=== PATIENT | female | born 1965 | race Caucasian/White ===

== ENCOUNTER 2020-08-15 07:54 | Outpatient (REF) | payer OTHER, SELFPAY ==
[2020-08-15 11:24] LABS: Hematocrit 41.1 % (37-47); Hemoglobin 13.5 g/dl (12.0-16.0); Mean Corpuscular HGB Conc 32.8 g/dl (31.0-35.0); Mean Corpuscular Hemoglobin 29.7 pg (27.0-33.0); Mean Corpuscular Volume 90.5 fL (80-98); Mean Platelet Volume 9.8 fL (9.4-12.3); Platelet Count 266 X10*3/uL (160-400); Red Blood Count 4.54 X10*6/uL (4.20-5.50); Red Cell Distribution Width 13.2 % (11.0-16.0); White Blood Count 7.1 X10*3/uL (4.8-10.8)
[2020-08-15 11:42] LABS: Alanine Aminotransferase 30 U/L (0-31); Albumin Level 4.5 g/dL (3.5-5.0); Alkaline Phosphatase 101 U/L (39-117); Anion Gap 15 (12-20); Aspartate Amino Transferase 28 U/L (5-31); Bilirubin Total 0.4 mg/dL (0.0-1.0); Blood Urea Nitrogen 15 mg/dL (9-16); Calcium 9.5 mg/dL (8.4-10.2); Carbon Dioxide 27 mmol/L (22-29); Chloride 102 mmol/L (96-108); Cholesterol 276 mg/dL; Estimated Glomerular Filt Rate > 60; Glucose Fasting 109 mg/dL (60-99); HDL Cholesterol 56 mg/dL; Iron 89 mcg/dL (30-160); LDL Cholesterol Calculated 168 mg/dl; Percent Iron Saturation 25 % (15-50); Potassium 4.5 mmol/l (3.3-5.1); Sodium 139 mmol/L (135-145); Total Iron Binding Capacity 357 mcg/dL (228-428); Total Protein 7.3 g/dL (6.5-8.0); Triglycerides 264 mg/dL; Unsaturated Iron Binding 268 ug/dL
[2020-08-15 11:55] LABS: Thyroid Stimulating Hormone 4.44 mIU/mL (0.32-4.0)
[2020-08-15 12:12] LABS: Creatinine Urine 144.53 mg/dL; Microalbum/Creatinine Ratio Ur 93.4 ug/mg cr
[2020-08-15 12:16] LABS: Estimated Average Glucose 128 mg/dL; Hemoglobin A1C 149.7417 umol/L; Hemoglobin A1c % 6.1 %
[2020-08-15 12:22] LABS: Glucose Urine UA NEG (NEG); Leukocyte Esterase Urine 1+ (NEG); Nitrite Urine NEG (NEG); PH 5.5 (5.0-8.0); Specific Gravity - Urine 1.025 (1.005-1.025); Urine Blood 2+ (NEG); Urine Ketones NEG (NEG); Urine Protein NEG (NEG-TRACE)
[2020-08-15 12:39] LABS: Appearance Urine HAZY; Color Urine YELLOW
[2020-08-15 13:37] LABS: RBC Urine 0-2 /HPF (0)
== END 2020-08-15 07:55 | disposition home or self-care (01) ==
LOC: HO.HMGCLDS 07:54
PROVIDERS: PCP Internal Medicine; Visit Provider Internal Medicine
DX: Z00.00 Encounter for general adult medical examination without abnormal findings (principal); I49.9 Cardiac arrhythmia, unspecified; I10 Essential (primary) hypertension; E55.9 Vitamin D deficiency, unspecified
CPT/HCPCS: 36415; 80053; 80061; 81001; 81003; 82043; 83036; 83540; 84443; 85027

== ENCOUNTER 2020-08-29 17:27 | Outpatient (REF) | payer OTHER, SELFPAY ==
--- NOTE | 2020-08-29 | MM_ITS ---
EXAMINATION: MM SCREENING DIGITAL BREAST TOMOSYNTHESIS, BILATERAL CLINICAL INFORMATION: Screening. Asymptomatic. The lifetime risk of breast cancer based on the Tyrer-Cuzick Model is 8.4%. COMPARISON: Mammography: May 31, 2019 and studies dating back to July 28, 2014 TECHNIQUE: Digital breast tomosynthesis is performed in both the craniocaudal and mediolateral oblique views along with computer-aided detection (CAD). Synthesized 2D images are generated from the tomosynthesis. FINDINGS: The breasts are heterogeneously dense, which may obscure small masses (ACR BI-RADS breast composition Category c). There are no significant masses, abnormal calcifications, or other abnormalities. MM/MM tomosynthesis screening BI IMPRESSION: There are no significant changes from prior study. ASSESSMENT: BI-RADS 1: Negative RECOMMENDATION: Routine annual mammography screening. This patient's information was entered into a reminder system with a target due date for their next mammogram.
== END 2020-08-29 17:28 | disposition home or self-care (01) ==
LOC: HO.MAMMO 17:27
PROVIDERS: PCP Internal Medicine; Visit Provider Internal Medicine
DX: Z12.31 Encounter for screening mammogram for malignant neoplasm of breast (principal)
CPT/HCPCS: 77063; 77067

== ENCOUNTER → 2020-10-08 10:52 | Outpatient (BNVA) | payer OTHER, SELFPAY | PROVIDERS: PCP Internal Medicine; Visit Provider Nurse Practitioner Family | DX: I49.1 Atrial premature depolarization (principal); R00.2 Palpitations; I10 Essential (primary) hypertension | CPT/HCPCS: 93005; 99212 ==

== ENCOUNTER → 2020-11-25 13:25 | Outpatient (REF) | payer OTHER, SELFPAY ==
--- NOTE | 2020-11-25 15:04 | ECG_ITS ---
Hook-up date: 2020-11-25 14:48:00 Duration: 44:41:00 Test Indications: ATRIAL PREMATURE DEPOLARIZATION. Medications: 129472 QRS complexes * Ventricular ectopics which represent % of total QRS comp. 7 Supraventricular ectopics which represent <1 % of total QRS comp. * Paced QRS complexs which represent % of total QRS comp. VENTRICULAR ECTOPY * Isolated * Bigeminal Cycles * Couplets * Runs * Beats in Runs * Beats LONGEST at * BPM at :: -- * Beats FASTEST at * BPM at :: -- SUPRAVENTRICULAR ECTOPY 7 Isolated 0 Couplets 0 Runs 0 Beats in Runs * Beats LONGEST at * BPM at :: -- * Beats FASTEST at * BPM at :: -- HEART RATES 51 MIN at 06:04:13 2020-11-26 76 AVG 105 MAX at 16:05:33 2020-11-26 LONGEST RR 1.8560 secs at 00:34:07 2020-11-26 S-T LEVELS Channel 1 - 128 mm at 14:48:00 2020-11-25 - 128 mm at 14:48:00 2020-11-25 Channel 2 - 128 mm at 14:48:00 2020-11-25 - 128 mm at 14:48:00 2020-11-25 Channel 3 - 128 mm at 03:40:71 -- - 128 mm at 03:40:71 Basic rhythm Normal sinus rhythm No long pause or profound bradycardia Rare Premature atrial complexes pat Referred By: Barbara Caldera Overread By: ALBAN MACKAY MD
== END ==
LOC: HO.CARD 13:25
PROVIDERS: PCP Internal Medicine; Visit Provider Nurse Practitioner Family
DX: I49.1 Atrial premature depolarization (principal)
CPT/HCPCS: 93226

== ENCOUNTER → 2020-12-19 13:47 | Outpatient (REF) | payer OTHER, SELFPAY ==
--- NOTE | 2020-12-19 14:00 | CA_ITS ---
Transthoracic Echocardiogram Patient (Last, First, Middle): Angelica Saba, Gender: Female Date of : 1965 Age: 55 Procedure Date: 12/19/2020 Procedure Type: Transthoracic Echocardiogram Location: OP Height: 157.48 cm Weight: 65.77 kg BSA: 1.67 m2 Heart Rate: bpm BP: 126 / 89 mmHg Tire Retreader: JOSE Woodward MD: Jc Dangeol MD Chair Car Attendant: Carlos Bautista MD Symptoms: I49.1 PAC I10 HTN Study Quality: Good ECG Rhythm: Sinus Conclusions: - 1. Normal LV systolic function with grade 1 diastolic dysfunction 2. Normal cardiac valvular Doppler 3. Normal RV systolic pressure 4. No pericardial effusion Findings Left Ventricle Normal left ventricular size, thickness, and systolic function. The visually estimated ejection fraction is between 60-65%. Spectral Doppler is indicative of an impaired relaxation filling pattern. E/E prime ratio is <8, consistent with normal filling pressures. Evidence suggests grade I (mild) diastolic dysfunction. Right Ventricle Normal right ventricular cavity size and systolic function. Atria The left atrium is likely dilated. There is lipomatous hypertrophy of the interatrial septum. Interatrial shunt cannot be excluded. The right atrium is normal in size. Aortic Valve The aortic valve structure and function is likely normal. There is no aortic valve stenosis. There is no aortic valve regurgitation. Mitral Valve There is mild anterior and posterior mitral leaflet thickening. There is trace mitral valve regurgitation. There is no mitral valve stenosis. Pulmonic Valve The pulmonic valve was not well visualized. Tricuspid Valve Likely normal tricuspid valve structure and function. There is trace tricuspid valve regurgitation. The right ventricular systolic pressure is normal. The right ventricular systolic pressure is 26 mmHg. Normal right atrial pressure. There is no evidence of pulmonary hypertension. Great Vessels All visible segments of the aorta are normal in size. The pulmonary artery was not well visualized. Venous The inferior vena cava was not well visualized. Pericardium/Pleural There is no evidence of pericardial effusion. Prior Study Comparison No significant change compared to prior study dated: 08/31/2019. Measurements 2D Linear Measurements IVSd: 0.96 0.6-0.9/0.6-1.0 cm LVIDd: 3.83 3.9-5.3/4.2-5.9 cm LVIDd Index: 2.29 2.4-3.2/2.2-3.1 cm/m2 LVIDs: 2.44 2.0-3.6 cm LVPWd: 0.99 0.7-1.1 cm Ao Root: 3.20 2.1-3.5 cm LA Diam: 3.20 2.7-3.8/3.0-4.0 cm LAIDs Index: 1.92 1.5-2.3 cm/m2 LV Mass: 142.19 67-162/88-224 g LV Mass Index: 85.14 43-95/49-115 g/m2 LVOT Diam: 2.00 3.0+(-)1.3 cm 2D Systolic Function EF 4C: 65.70 >55% EF 2C: 65.30 >55% EF BiP: 64.00 >55% Mitral Valve MV Pk E: 0.75 MV PK A: 1.00 MV Decel Time: 253.00 E/A: 0.80 E'Lateral: 7.18 E'Medial: 5.44 E/E' Med: 13.80 E/E' Lat: 10.50 PHT: 74.00 MVA PHT: 2.97 Decel Kingman: 2.98 Aortic Valve AoV Pk Adama: 1.90 AoV Mn Adama: 1.18 AoV VTI: 0.39 AoV Pk Grad: 14.00 Aov Mn Grad: 7.00 ADWOA Cont.VTI: 1.94 LVOT LVOT Pk Adama: 1.10 LVOT Mn Adama: 0.71 LVOT VTI: 0.24 LVOT Pk Grad: 5.00 LVOT Mn Grad: 2.00 LVOT Diam: 2.00 LVOT Area: 3.14 Diastolic Function MV Pk E: 0.75 MV Pk A: 1.00 E/A: 0.80 E'Medial: 5.44 E/E' Med: 13.80 E' Laterial: 7.18 E/E' Lat: 10.50 Tricuspid Valve TR Pk Adama: 2.41 TR Pk Grad: 23.00 RA Press: 3.00 RVSP: 26.00 Great Vessels Aorta Ao Root-2D: 3.20 2.0-3.7 cm Ao Asc: 3.30 2.1-3.4 cm Ao Arch: 2.60 Updated in Other Vendor System with Status of Final Carlos Bautista MD electronically signed on 12/20/2020 5:24:59 PM with status of Final
== END ==
LOC: HO.CARD 13:47
PROVIDERS: Visit Provider Internal Medicine
DX: I49.1 Atrial premature depolarization (principal); I10 Essential (primary) hypertension
CPT/HCPCS: 93306

== ENCOUNTER → 2020-12-24 09:51 | Outpatient (BNVA) | payer OTHER, SELFPAY | PROVIDERS: PCP Internal Medicine; Visit Provider Nurse Practitioner Family | DX: I49.1 Atrial premature depolarization (principal); I10 Essential (primary) hypertension; R00.2 Palpitations | CPT/HCPCS: 99212 ==

== ENCOUNTER → 2021-01-20 11:23 | Outpatient (BNVA) | payer OTHER, SELFPAY | PROVIDERS: PCP Internal Medicine; Visit Provider Advanced Practice Midwife ==

== ENCOUNTER 2021-03-18 11:23 | Outpatient (REF) | payer OTHER, SELFPAY ==
[2021-03-18 14:02] LABS: Glucose Urine UA NEG (NEG); Leukocyte Esterase Urine NEG (NEG); Nitrite Urine NEG (NEG); Specific Gravity - Urine <= 1.005 (1.005-1.025); Urine Blood TRACE (NEG); Urine Ketones NEG (NEG); Urine Protein NEG (NEG-TRACE)
[2021-03-18 14:03] LABS: Appearance Urine CLEAR; Color Urine STRAW
[2021-03-18 14:18] LABS: RBC Urine 0-2 /HPF (0); WBC Urine 0 /HPF (0-4)
[2021-03-18 14:27] LABS: Estimated Average Glucose 131 mg/dL; Hemoglobin A1c % 6.2 %
[2021-03-18 14:31] LABS: Alanine Aminotransferase 34 U/L (0-31); Albumin Level 4.8 g/dL (3.5-5.0); Alkaline Phosphatase 104 U/L (39-117); Anion Gap 17 (12-20); Aspartate Amino Transferase 29 U/L (5-31); Bilirubin Total 0.4 mg/dL (0.0-1.0); Blood Urea Nitrogen 13 mg/dL (9-16); Calcium 9.5 mg/dL (8.4-10.2); Carbon Dioxide 24 mmol/L (22-29); Chloride 100 mmol/L (96-108); Cholesterol 274 mg/dL; Estimated Glomerular Filt Rate > 60; Glucose Fasting 99 mg/dL (60-99); HDL Cholesterol 57 mg/dL; LDL Cholesterol Calculated 163 mg/dl; Potassium 4.1 mmol/L (3.3-5.1); Sodium 137 mmol/L (135-145); Total Protein 7.6 g/dL (6.5-8.0); Triglycerides 272 mg/dL
[2021-03-18 14:54] LABS: Thyroid Stimulating Hormone 2.79 uIU/mL (0.32-4.0)
== END 2021-03-18 11:24 | disposition home or self-care (01) ==
LOC: HO.HMGCLDS 11:23
PROVIDERS: PCP Internal Medicine; Visit Provider Internal Medicine
DX: E03.9 Hypothyroidism, unspecified (principal); E78.5 Hyperlipidemia, unspecified; R73.9 Hyperglycemia, unspecified; I10 Essential (primary) hypertension
CPT/HCPCS: 36415; 80053; 80061; 81001; 83036; 84443

== ENCOUNTER → 2021-04-04 08:04 | Outpatient (BNVA) | payer OTHER, SELFPAY | PROVIDERS: PCP Internal Medicine; Visit Provider Advanced Practice Midwife ==

== ENCOUNTER 2021-05-27 15:23 | Outpatient (REF) | payer OTHER, SELFPAY ==
--- NOTE | ~2021-05-27 | US_ITS ---
EXAMINATION: PELVIC ULTRASOUND CLINICAL INFORMATION: Amenorrhea COMPARISON: Previous pelvic ultrasound July 2015 TECHNIQUE: Transabdominal and transvaginal pelvic ultrasound was performed. Transvaginal exam was performed for better visualization of the uterus and ovaries. FINDINGS: The uterus is anteverted and measures 8.8 x 3.2 x 5.1 cm in dimension. No focal uterine lesion is seen. There is an IUD in the uterus and satisfactory position. The endometrium does not appear thickened. The ovaries are normal-appearing. The right ovary measures 2.8 x 1.1 x 1.9 cm. The left ovary measures 2.8 x 2.8 x 2.4 cm. There is a small 1.9 x 1.5 x 1.6 cm simple left ovarian cyst. There is no fluid in the pelvis. US/US pelvic and transvaginal IMPRESSION: IUD in the uterus in satisfactory position. Otherwise unremarkable exam.
== END 2021-05-27 15:24 | disposition home or self-care (01) ==
LOC: HO.US 15:23
PROVIDERS: Visit Provider Advanced Practice Midwife
DX: T83.32XA Displacement of intrauterine contraceptive device, initial encounter (principal); N91.2 Amenorrhea, unspecified
CPT/HCPCS: 76830; 76856

== ENCOUNTER → 2021-05-28 09:15 | Outpatient (BNVA) | payer OTHER, SELFPAY | PROVIDERS: PCP Internal Medicine; Referring Provider Internal Medicine; Visit Provider Internal Medicine | DX: I49.1 Atrial premature depolarization (principal); I10 Essential (primary) hypertension; G47.33 Obstructive sleep apnea (adult) (pediatric) | CPT/HCPCS: 99212 ==

== ENCOUNTER 2021-06-02 08:25 | Outpatient (REF) | payer OTHER, SELFPAY ==
[2021-06-03 19:36] LABS: Follicle Stimulating Hormone 52.6 mIU/mL
== END 2021-06-02 08:26 | disposition home or self-care (01) ==
LOC: HO.LAB 08:25
PROVIDERS: PCP Internal Medicine; Visit Provider Advanced Practice Midwife
DX: N91.2 Amenorrhea, unspecified (principal); T83.32XA Displacement of intrauterine contraceptive device, initial encounter
CPT/HCPCS: 36415; 83001

== ENCOUNTER → 2021-06-03 10:53 | Outpatient (BNVA) | payer OTHER, SELFPAY | PROVIDERS: PCP Internal Medicine; Visit Provider Advanced Practice Midwife ==

== ENCOUNTER → 2021-06-06 15:04 | Outpatient (BNVA) | payer OTHER, SELFPAY | PROVIDERS: PCP Internal Medicine; Visit Provider Advanced Practice Midwife ==

== ENCOUNTER → 2021-07-16 08:07 | Outpatient (BNVA) | payer OTHER, SELFPAY | PROVIDERS: PCP Internal Medicine; Visit Provider Advanced Practice Midwife | DX: Z30.432 Encounter for removal of intrauterine contraceptive device (principal); G47.9 Sleep disorder, unspecified; N95.1 Menopausal and female climacteric states | CPT/HCPCS: 58301 ==

== ENCOUNTER 2021-08-09 09:37 | Outpatient (REF) | payer OTHER, SELFPAY ==
[2021-08-09 10:19] LABS: Appearance Urine CLEAR; Color Urine YELLOW; Glucose Urine UA NEG (NEG); Leukocyte Esterase Urine 3+ (NEG); Nitrite Urine NEG (NEG); Specific Gravity - Urine 1.025 (1.005-1.025); Urine Blood 2+ (NEG); Urine Ketones NEG (NEG); Urine Protein TRACE MG/DL (NEG-TRACE)
[2021-08-09 10:28] LABS: Renal Epithelial Cells Urine 1+ /LPF; Squamous Epithelial Cell Urine 1+ /LPF
[2021-08-09 10:31] LABS: Estimated Average Glucose 140 mg/dL; Hemoglobin A1c % 6.5 %
[2021-08-09 10:38] LABS: Alanine Aminotransferase 36 U/L (0-31); Albumin Level 4.5 g/dL (3.5-5.0); Alkaline Phosphatase 113 U/L (39-117); Anion Gap 14 (12-20); Aspartate Amino Transferase 27 U/L (5-31); Bilirubin Total 0.4 mg/dL (0.0-1.0); Blood Urea Nitrogen 14 mg/dL (9-16); Carbon Dioxide 25 mmol/L (22-29); Chloride 103 mmol/L (96-108); Cholesterol 286 mg/dL; Estimated Glomerular Filt Rate > 60; Glucose Fasting 123 mg/dL (60-99); HDL Cholesterol 48 mg/dL; LDL Cholesterol Calculated 177 mg/dl; Potassium 4.7 mmol/L (3.3-5.1); Sodium 137 mmol/L (135-145); Total Protein 7.3 g/dL (6.5-8.0); Triglycerides 305 mg/dL
[2021-08-09 10:57] LABS: Creatinine Urine 97.71 mg/dL; Microalbum/Creatinine Ratio Ur 110.5 ug/mg cr
[2021-08-09 10:58] LABS: TSH reflex Free T4 6.23 uIU/mL (0.32-4.0)
[2021-08-09 12:05] LABS: Free T4 (Free Thyroxine) 0.76 ng/dL (0.71-1.85)
== END 2021-08-09 09:38 | disposition home or self-care (01) ==
LOC: HO.LAB 09:37
PROVIDERS: Absent Provider Internal Medicine; PCP Nurse Practitioner Family; Visit Provider Nurse Practitioner Family
DX: I10 Essential (primary) hypertension (principal); E03.9 Hypothyroidism, unspecified; R73.9 Hyperglycemia, unspecified; E78.5 Hyperlipidemia, unspecified
CPT/HCPCS: 36415; 80053; 80061; 81001; 82043; 83036; 84439; 84443

== ENCOUNTER → 2021-08-26 08:05 | Outpatient (BNVA) | payer OTHER, SELFPAY | PROVIDERS: PCP Nurse Practitioner Family; Visit Provider Obstetrics & Gynecology | DX: T83.32XA Displacement of intrauterine contraceptive device, initial encounter (principal) | CPT/HCPCS: 99212 ==

== ENCOUNTER 2021-09-06 09:39 | Outpatient (REF) | payer OTHER, SELFPAY ==
--- NOTE | ~2021-09-06 | MM_ITS ---
EXAMINATION: MM SCREENING DIGITAL BREAST TOMOSYNTHESIS, BILATERAL CLINICAL INFORMATION: Screening. Asymptomatic. The lifetime risk of breast cancer based on the Tyrer-Cuzick Model is 10%. COMPARISON: Mammography: 08/29/2020, 05/31/2019, 04/18/2018 TECHNIQUE: Digital breast tomosynthesis is performed in both the craniocaudal and mediolateral oblique views along with computer-aided detection (CAD). Synthesized 2D images are generated from the tomosynthesis. FINDINGS: There are scattered areas of fibroglandular density (ACR BI-RADS breast composition Category b). There are no significant masses, abnormal calcifications, or other abnormalities. Parenchymal pattern is similar to prior exams. No developing density. The axilla and skin contours are unremarkable. No significant changes. MM/MM tomosynthesis screening BI IMPRESSION: No mammographic evidence of malignancy. ASSESSMENT: BI-RADS 1: Negative RECOMMENDATION: Routine annual mammography screening. This patient's information was entered into a reminder system with a target due date for their next mammogram.
== END 2021-09-06 09:40 | disposition home or self-care (01) ==
LOC: HO.MAMMO 09:39
PROVIDERS: PCP Nurse Practitioner Family; Visit Provider Nurse Practitioner Family
DX: Z12.31 Encounter for screening mammogram for malignant neoplasm of breast (principal)
CPT/HCPCS: 77063; 77067

== ENCOUNTER → 2021-11-26 07:30 | Outpatient (REF) | payer OTHER, SELFPAY ==
--- NOTE | 2021-11-26 07:35 | CA_ITS ---
Transthoracic Echocardiogram Patient (Last, First, Middle): Angelica Saba, Gender: Female Date of : 1965 Age: 56 Procedure Date: 11/26/2021 Procedure Type: Transthoracic Echocardiogram Location: OP Height: 154.94 cm Weight: 64.41 kg BSA: 1.63 m2 Heart Rate: bpm BP: 116 / 60 mmHg Mine Wedge Sawyer: Referring MD: Ray Tolentino [facility] Symptoms: R01.1 - Cardiac murmur, unspecified Study Quality: Fair ECG Rhythm: Sinus Conclusions: - The left ventricular systolic function is normal. The calculated ejection fraction is 64% by biplane method. - No obvious valvular pathology seen on this study. Findings Left Ventricle Normal left ventricular cavity size. There is mildly increased left ventricular wall thickness. The left ventricular systolic function is normal. The calculated ejection fraction is 64% by biplane method. There is no evidence of regional wall motion abnormalities. E/E prime ratio is between 8 and 15 consistent with indeterminate filling pressures. Evidence suggests grade I (mild) diastolic dysfunction. Right Ventricle Normal right ventricular cavity size and systolic function. Atria Both atria are normal in size. Aortic Valve There is a normal trileaflet aortic valve. There is no aortic valve stenosis. There is no aortic valve regurgitation. Mitral Valve The mitral valve appears normal. There is no mitral valve regurgitation. There is no mitral valve stenosis. Pulmonic Valve The pulmonic valve was not well visualized. Tricuspid Valve Normal tricuspid valve structure. There is trace tricuspid valve regurgitation. The pulmonary artery systolic pressure is normal. Great Vessels The aortic annulus, sinuses of valsalva, and asc aorta are normal in size. Venous The inferior vena cava was not well visualized. The inferior vena cava is normal in size. Pericardium/Pleural There is no evidence of pericardial effusion. Prior Study Comparison No significant change compared to prior study dated: 12/19/2020. Recommendations, Care & Conclusions No obvious valvular pathology seen on this study. Measurements 2D Linear Measurements IVSd: 1.20 0.6-0.9/0.6-1.0 cm LVIDd: 4.03 3.9-5.3/4.2-5.9 cm LVIDd Index: 2.47 2.4-3.2/2.2-3.1 cm/m2 LVIDs: 2.66 2.0-3.6 cm LVPWd: 1.23 0.7-1.1 cm Ao Root: 3.10 2.1-3.5 cm LA Diam: 3.50 2.7-3.8/3.0-4.0 cm LAIDs Index: 2.15 1.5-2.3 cm/m2 LV Mass: 212.30 67-162/88-224 g LV Mass Index: 130.25 43-95/49-115 g/m2 LVOT Diam: 2.00 3.0+(-)1.3 cm 2D Systolic Function EF 4C: 70.20 >55% EF 2C: 54.10 >55% EF BiP: 64.30 >55% Mitral Valve MV Pk E: 0.77 MV PK A: 0.83 MV Decel Time: 203.00 E/A: 0.90 E'Lateral: 7.18 E'Medial: 4.57 E/E' Med: 16.80 E/E' Lat: 10.70 PHT: 59.00 MVA PHT: 3.73 Decel Wilbarger: 3.78 Aortic Valve AoV Pk Adama: 1.71 AoV Mn Adama: 1.17 AoV VTI: 0.42 AoV Pk Grad: 12.00 Aov Mn Grad: 6.00 ADWOA Cont.VTI: 2.07 LVOT LVOT Pk Adama: 1.20 LVOT Mn Adama: 0.79 LVOT VTI: 0.28 LVOT Pk Grad: 6.00 LVOT Mn Grad: 3.00 LVOT Diam: 2.00 LVOT Area: 3.14 Diastolic Function MV Pk E: 0.77 MV Pk A: 0.83 E/A: 0.90 E'Medial: 4.57 E/E' Med: 16.80 E' Laterial: 7.18 E/E' Lat: 10.70 Right Ventricle TAPSE (mm): 23.00 TVS' Adama: 13.00 Tricuspid Valve TR Pk Adama: 1.59 TR Pk Grad: 10.00 Great Vessels Aorta Ao Root-2D: 3.10 2.0-3.7 cm Ao Asc: 3.20 2.1-3.4 cm Pulmonary Valve PV Pk Adama: 1.06 Peak PV Grad: 4.00 Updated in Other Vendor System with Status of Final Jc Dangelo MD electronically signed on 11/28/2021 11:45:16 AM with status of Final
== END ==
LOC: HO.CARD 07:30
PROVIDERS: PCP Nurse Practitioner Family; Visit Provider Nurse Practitioner Family
DX: R01.0 Benign and innocent cardiac murmurs (principal)
CPT/HCPCS: 93306

== ENCOUNTER → 2022-01-06 13:47 | Outpatient (BNVA) | payer OTHER, SELFPAY | PROVIDERS: PCP Nurse Practitioner Family; Referring Provider Nurse Practitioner Family; Visit Provider Internal Medicine | DX: I49.1 Atrial premature depolarization (principal); I10 Essential (primary) hypertension; G47.33 Obstructive sleep apnea (adult) (pediatric); E78.2 Mixed hyperlipidemia | CPT/HCPCS: 93005; 99212 ==

== ENCOUNTER 2022-01-17 10:36 | Outpatient (REF) | payer OTHER, SELFPAY ==
[2022-01-17 11:44] LABS: Appearance Urine CLEAR; Color Urine YELLOW; Glucose Urine UA NEG (NEG); Leukocyte Esterase Urine NEG (NEG); Nitrite Urine NEG (NEG); Specific Gravity - Urine 1.015 (1.005-1.025); UACC Culture Trigger NO; Urine Blood 1+ (NEG); Urine Ketones NEG (NEG); Urine Protein NEG (NEG-TRACE)
[2022-01-17 11:54] LABS: Estimated Average Glucose 143 mg/dL; Hemoglobin A1c % 6.6 %
[2022-01-17 11:54] LABS: RBC Urine 0-2 /HPF (0); WBC Urine 0-2 /HPF (0-4)
[2022-01-17 11:55] LABS: Squamous Epithelial Cell Urine TRACE /LPF
[2022-01-17 12:10] LABS: Alanine Aminotransferase 29 U/L (0-31); Albumin Level 4.5 g/dL (3.5-5.0); Alkaline Phosphatase 98 U/L (39-117); Anion Gap 13 (12-20); Aspartate Amino Transferase 21 U/L (5-31); Bilirubin Total 0.6 mg/dL (0.0-1.0); Blood Urea Nitrogen 16 mg/dL (9-16); Calcium 9.7 mg/dL (8.4-10.2); Carbon Dioxide 26 mmol/L (22-29); Chloride 105 mmol/L (96-108); Cholesterol 153 mg/dL; Estimated Glomerular Filt Rate > 60; Glucose Fasting 113 mg/dL (60-99); HDL Cholesterol 45 mg/dL; LDL Cholesterol Calculated 81 mg/dl; Potassium 4.7 mmol/L (3.3-5.1); Sodium 139 mmol/L (135-145); Total Protein 7.2 g/dL (6.5-8.0); Triglycerides 135 mg/dL
[2022-01-17 12:33] LABS: TSH reflex Free T4 2.53 uIU/mL (0.32-4.0)
== END 2022-01-17 10:37 | disposition home or self-care (01) ==
LOC: HO.LAB 10:36
PROVIDERS: PCP Nurse Practitioner Family; Visit Provider Nurse Practitioner Family
DX: E11.9 Type 2 diabetes mellitus without complications (principal)
CPT/HCPCS: 36415; 80053; 80061; 81001; 83036; 84443

== ENCOUNTER 2022-07-17 12:14 | Outpatient (REF) | payer OTHER, SELFPAY ==
--- NOTE | ~2022-07-17 | XR_ITS ---
EXAMINATION: XR FOOT, RIGHT CLINICAL INFORMATION: Right foot pain. COMPARISON: None TECHNIQUE: AP, lateral, and oblique views of the right foot. FINDINGS: There is no acute fracture or dislocation. The joint spaces are unremarkable. The tarsal bones are normally aligned. There is a small plantar calcaneal spur. The soft tissues are unremarkable. XR/XR foot RT 2V IMPRESSION: Small plantar calcaneal spur without other significant abnormality.
[2022-07-17 13:52] LABS: MANUAL DIFF FLAG NO
[2022-07-17 14:04] LABS: Basophils Absolute Auto 0.1 X10*3/uL (0.0-0.2); Basophils Percent Auto 0.6 % (0-2); Eosinophils Absolute Auto 0.3 X10*3/uL (0.0-0.4); Eosinophils Percent Auto 3.3 % (0-4); Hematocrit 39.5 % (37.0-47.0); Hemoglobin 12.9 g/dl (12.0-16.0); Imm Gran Abs Auto 0.03 X10*3/uL (0.00-0.03); Imm Gran Pct Auto 0.4 % (0.0-0.4); Lymphocytes Absolute Auto 2.7 X10*3/uL (1.2-4.9); Lymphocytes Percent Auto 31.7 % (20-40); Mean Corpuscular HGB Conc 32.7 g/dl (31.0-35.0); Mean Corpuscular Hemoglobin 29.1 pg (27.0-33.0); Mean Corpuscular Volume 89.2 fL (80.0-98.0); Mean Platelet Volume 9.8 fL (9.4-12.3); Monocytes Absolute Auto 0.6 X10*3/uL (0.1-1.2); Monocytes Percent Auto 7.6 % (2-11); Neutrophils Absolute Auto 4.8 x10*3/uL (2.0-8.3); Neutrophils Percent Auto 56.4 % (45-73); Platelet Count 260 X10*3/uL (160-400); Red Blood Count 4.43 X10*6/uL (4.20-5.50); Red Cell Distribution Width 13.3 % (11.0-16.0); White Blood Count 8.4 X10*3/uL (4.8-10.8)
[2022-07-17 14:11] LABS: Estimated Average Glucose 157 mg/dL; Hemoglobin A1c % 7.1 %
[2022-07-17 14:28] LABS: Alanine Aminotransferase 30 U/L (0-31); Albumin Level 4.4 g/dL (3.5-5.0); Alkaline Phosphatase 100 U/L (39-117); Anion Gap 16 (12-20); Appearance Urine Clear; Aspartate Amino Transferase 24 U/L (5-31); Bilirubin Total 0.4 mg/dL (0.0-1.0); Blood Urea Nitrogen 14 mg/dL (9-16); Calcium 9.3 mg/dL (8.4-10.2); Carbon Dioxide 24 mmol/L (22-29); Chloride 102 mmol/L (96-108); Cholesterol 149 mg/dL; Color Urine Yellow; Estimated Glomerular Filt Rate > 60; Glucose Fasting 108 mg/dL (60-99); Glucose Urine UA Negative (Negative); HDL Cholesterol 49 mg/dL; LDL Cholesterol Calculated 75 mg/dl; Leukocyte Esterase Urine Trace (Negative); Nitrite Urine Negative (Negative); PH 5.5 (5.0-9.0); Potassium 4.3 mmol/L (3.3-5.1); Sodium 138 mmol/L (135-145); Specific Gravity - Urine 1.015 (1.005-1.025); Triglycerides 126 mg/dL; UMIC TRIGGER UACC YES; Urine Blood Small (1+) (Negative); Urine Ketones Negative (Negative); Urine Protein Negative (Neg-Trace)
[2022-07-17 14:45] LABS: Bacteria Urine None Seen (None Seen); Hyaline Casts Urine 0-2 /LPF (0-2); Squamous Epithelial Cell Urine 0-2 /HPF (0-2); WBC Urine 0-5 /HPF (0-5)
== END 2022-07-17 12:15 | disposition home or self-care (01) ==
LOC: HO.HMGCLDS 12:14
PROVIDERS: PCP Nurse Practitioner Family; Visit Provider Nurse Practitioner Family
DX: E11.9 Type 2 diabetes mellitus without complications (principal); M79.671 Pain in right foot
CPT/HCPCS: 36415; 73620; 80053; 80061; 81001; 83036; 84443; 85025

== ENCOUNTER 2022-09-12 10:00 | Outpatient (REF) | payer OTHER, SELFPAY ==
--- NOTE | ~2022-09-12 | MM_ITS ---
EXAMINATION: MM SCREENING DIGITAL BREAST TOMOSYNTHESIS, BILATERAL CLINICAL INFORMATION: Screening. Asymptomatic. The lifetime risk of breast cancer based on the Tyrer-Cuzick Model is 8%. COMPARISON: Mammography: 09/06/2021, 08/29/2020, 05/31/2019 TECHNIQUE: Digital breast tomosynthesis is performed in both the craniocaudal and mediolateral oblique views along with computer-aided detection (CAD). Synthesized 2D images are generated from the tomosynthesis. FINDINGS: There are scattered areas of fibroglandular density (ACR BI-RADS breast composition Category b). There are no significant masses, abnormal calcifications, or other abnormalities. Parenchymal pattern is similar to prior studies. The axilla are unremarkable. There is a dermal lesion overlying the left axilla on MLO view. MM/MM tomosynthesis screening BI IMPRESSION: No mammographic evidence of malignancy. ASSESSMENT: BI-RADS 2: Benign RECOMMENDATION: Routine annual mammography screening. This patient's information was entered into a reminder system with a target due date for their next mammogram.
== END 2022-09-12 10:01 | disposition home or self-care (01) ==
LOC: HO.MAMMO 10:00
PROVIDERS: PCP Nurse Practitioner Family; Visit Provider Nurse Practitioner Family
DX: Z12.31 Encounter for screening mammogram for malignant neoplasm of breast (principal)
CPT/HCPCS: 77063; 77067

== ENCOUNTER 2022-11-10 10:14 | Outpatient (REF) | payer OTHER, SELFPAY ==
--- NOTE | ~2022-11-10 | XR_ITS ---
EXAMINATION: XR CERVICAL SPINE CLINICAL INFORMATION: Cervical disc disorder. COMPARISON: None TECHNIQUE: 3 views of the cervical spine were obtained. FINDINGS: There are moderate disc degenerative changes with anterior osteophyte formation at C5-C6. There is mild reversal of the normal cervical lordosis, centered at C4-C5. The study is otherwise essentially unremarkable. No fracture or subluxation is seen. Vertebral body heights appear maintained. No lytic or sclerotic bony lesion is identified. The prevertebral soft tissues appear unremarkable. XR/XR cervical spine 2V IMPRESSION: Degenerative changes.
[2022-11-10 11:37] LABS: Appearance Urine Clear; Color Urine Yellow; Glucose Urine UA Negative (Negative); Leukocyte Esterase Urine Negative (Negative); Nitrite Urine Negative (Negative); Specific Gravity - Urine 1.025 (1.005-1.025); UMIC TRIGGER UACC YES; Urine Blood Small (1+) (Negative); Urine Ketones Negative (Negative); Urine Protein Negative (Neg-Trace)
[2022-11-10 11:41] LABS: Bacteria Urine None Seen (None Seen); Hyaline Casts Urine 0-2 /LPF (0-2); Squamous Epithelial Cell Urine 0-2 /HPF (0-2); WBC Urine 0-5 /HPF (0-5)
[2022-11-10 11:51] LABS: MANUAL DIFF FLAG NO
[2022-11-10 12:00] LABS: Basophils Absolute Auto 0.1 X10*3/uL (0.0-0.2); Basophils Percent Auto 0.6 % (0-2); Eosinophils Absolute Auto 0.3 X10*3/uL (0.0-0.4); Eosinophils Percent Auto 3.3 % (0-4); Hematocrit 40.7 % (37.0-47.0); Hemoglobin 13.1 g/dl (12.0-16.0); Imm Gran Abs Auto 0.03 X10*3/uL (0.00-0.03); Imm Gran Pct Auto 0.3 % (0.0-0.4); Lymphocytes Absolute Auto 2.2 X10*3/uL (1.2-4.9); Lymphocytes Percent Auto 24.1 % (20-40); Mean Corpuscular HGB Conc 32.2 g/dl (31.0-35.0); Mean Corpuscular Hemoglobin 29.1 pg (27.0-33.0); Mean Corpuscular Volume 90.4 fL (80.0-98.0); Mean Platelet Volume 9.8 fL (9.4-12.3); Monocytes Absolute Auto 0.6 X10*3/uL (0.1-1.2); Monocytes Percent Auto 6.8 % (2-11); Neutrophils Absolute Auto 5.8 x10*3/uL (2.0-8.3); Neutrophils Percent Auto 64.9 % (45-73); Platelet Count 278 X10*3/uL (160-400); Red Cell Distribution Width 14.4 % (11.0-16.0); White Blood Count 8.9 X10*3/uL (4.8-10.8)
[2022-11-10 12:19] LABS: Estimated Average Glucose 157 mg/dL; Hemoglobin A1c % 7.1 %
[2022-11-10 14:17] LABS: Alanine Aminotransferase 26 U/L (0-31); Albumin Level 4.4 g/dL (3.5-5.0); Alkaline Phosphatase 88 U/L (39-117); Anion Gap 13 (12-20); Aspartate Amino Transferase 28 U/L (5-31); Bilirubin Total 0.4 mg/dL (0.0-1.0); Blood Urea Nitrogen 19 mg/dL (9-16); Calcium 9.5 mg/dL (8.4-10.2); Carbon Dioxide 26 mmol/L (22-29); Chloride 103 mmol/L (96-108); Cholesterol 180 mg/dL; Estimated Glomerular Filt Rate > 60; Glucose Fasting 146 mg/dL (60-99); HDL Cholesterol 64 mg/dL; LDL Cholesterol Calculated 90 mg/dl; Potassium 4.3 mmol/L (3.3-5.1); Sodium 138 mmol/L (135-145); Triglycerides 133 mg/dL
[2022-11-10 16:18] LABS: Creatinine Urine 118.31 mg/dL; Microalbum/Creatinine Ratio Ur 25.3 ug/mg cr
== END 2022-11-10 10:15 | disposition home or self-care (01) ==
LOC: HO.HMGCX 10:14
PROVIDERS: PCP Nurse Practitioner Family; Visit Provider Nurse Practitioner Family
DX: M50.90 Cervical disc disorder, unspecified, unspecified cervical region (principal); E11.9 Type 2 diabetes mellitus without complications
CPT/HCPCS: 36415; 72040; 80053; 80061; 81001; 82043; 83036; 84443; 85025

== ENCOUNTER → 2022-12-21 07:08 | Outpatient (REF) | payer OTHER, SELFPAY ==
--- NOTE | 2022-12-21 07:28 | HM_ITS ---
Conclusion: 1. Patient was monitored for total period of 3 days and 3 hours 2. Baseline was normal sinus rhythm with average heart of 78 beats per minute 3. Very rare ectopy noted 4. No significant pauses or bradycardia noted 5. No patient reported events MTDD
== END ==
LOC: HO.CARD 07:08
PROVIDERS: PCP Nurse Practitioner Family; Visit Provider Internal Medicine
DX: I49.1 Atrial premature depolarization (principal)
CPT/HCPCS: 93242

== ENCOUNTER 2023-01-21 08:28 | Outpatient (REF) | payer OTHER, SELFPAY ==
--- NOTE | 2023-01-21 08:30 | EMG_ITS ---
Left median and ulnar motor and sensory studies were performed. Left radial sensory studies were performed and paraspinal muscles were tested with a needle. IMPRESSION: Unremarkable study with no evidence of median or ulnar neuropathy or radiculopathy. MD LORI Moore/KRISTY / [id number]
== END 2023-01-21 08:29 | disposition home or self-care (01) ==
LOC: HO.NEURO 08:28
PROVIDERS: PCP Nurse Practitioner Family; Visit Provider Nurse Practitioner Family
DX: M50.90 Cervical disc disorder, unspecified, unspecified cervical region (principal)
CPT/HCPCS: 95886; 95909

== ENCOUNTER 2023-03-03 08:32 | Outpatient (REF) | payer OTHER, SELFPAY ==
[2023-03-03 11:20] LABS: MANUAL DIFF FLAG NO
[2023-03-03 11:38] LABS: Basophils Percent Auto 0.3 % (0-2); Eosinophils Absolute Auto 0.3 X10*3/uL (0.0-0.4); Eosinophils Percent Auto 3.2 % (0-4); Hematocrit 42.3 % (37.0-47.0); Hemoglobin 13.5 g/dl (12.0-16.0); Imm Gran Abs Auto 0.04 X10*3/uL (0.00-0.03); Imm Gran Pct Auto 0.4 % (0.0-0.4); Lymphocytes Absolute Auto 2.2 X10*3/uL (1.2-4.9); Lymphocytes Percent Auto 22.6 % (20-40); Mean Corpuscular HGB Conc 31.9 g/dl (31.0-35.0); Mean Corpuscular Volume 90.8 fL (80.0-98.0); Mean Platelet Volume 9.9 fL (9.4-12.3); Monocytes Absolute Auto 0.7 X10*3/uL (0.1-1.2); Neutrophils Absolute Auto 6.5 x10*3/uL (2.0-8.3); Neutrophils Percent Auto 66.5 % (45-73); Platelet Count 266 X10*3/uL (160-400); Red Blood Count 4.66 X10*6/uL (4.20-5.50); Red Cell Distribution Width 13.9 % (11.0-16.0); White Blood Count 9.9 X10*3/uL (4.8-10.8)
[2023-03-03 12:23] LABS: Alanine Aminotransferase 26 U/L (0-31); Albumin Level 4.6 g/dL (3.5-5.0); Alkaline Phosphatase 91 U/L (39-117); Anion Gap 11 (12-20); Aspartate Amino Transferase 22 U/L (5-31); Bilirubin Total 0.7 mg/dL (0.0-1.0); Blood Urea Nitrogen 15 mg/dL (9-16); C Reactive Protein 0.26 mg/dL (< or = 0.50); Calcium 9.5 mg/dL (8.4-10.2); Carbon Dioxide 28 mmol/L (22-29); Chloride 106 mmol/L (96-108); Estimated Glomerular Filt Rate > 60; Glucose Random 147 mg/dL (60-115); Potassium 4.6 mmol/L (3.3-5.1); Sodium 140 mmol/L (135-145); TSH reflex Free T4 3.91 uIU/mL (0.32-4.0); Total Protein 7.3 g/dL (6.5-8.0)
[2023-03-03 12:26] LABS: Erythrocyte Sedimentation Rate 6 MM/HR (0-20)
[2023-03-03 18:30] LABS: Rheumatoid Factor < 13.0 IU/mL (<15.0)
[2023-03-05 20:33] LABS: A. Phagocytphilium DNA,RT-PCR NOT DETECTED (NOT DETECTED); Babesia Microti DNA, RT-PCR NOT DETECTED (NOT DETECTED); Borrelia Miyamotoi,DNA RT-PCR NOT DETECTED (NOT DETECTED); E.Chaffeensis DNA RT-PCR NOT DETECTED (NOT DETECTED); Lyme(Borrelia ssp)DNA RT-PCR NOT DETECTED (NOT DETECTED)
[2023-03-05 21:29] LABS: Antibody to SS-A Antigen <1.0 NEG AI (<1.0 NEG); Antibody to SS-B Antigen <1.0 NEG AI (<1.0 NEG)
[2023-03-07 13:58] LABS: Anti Nuclear Antibody Screen NEGATIVE (NEGATIVE)
[2023-03-09 15:38] LABS: Cyclic Citrullinated Peptide <16 UNITS
== END 2023-03-03 08:33 | disposition home or self-care (01) ==
LOC: HO.HMGCLDS 08:32
PROVIDERS: PCP Nurse Practitioner Family; Visit Provider Nurse Practitioner Family
DX: M79.10 Myalgia, unspecified site (principal); M25.50 Pain in unspecified joint
CPT/HCPCS: 36415; 80053; 82550; 84443; 85025; 85652; 86038; 86140; 86200; 86235; 86431; 87798; 87801

== ENCOUNTER 2023-05-31 08:00 | Outpatient (RCR) | payer OTHER, SELFPAY ==
--- NOTE | 2023-03-11 16:34 | MHC.PT.EP ---
[facility] [place] Office [place] Office [place] Office [address]vey [address] [phone] F: [phone] F: [phone] F: [phone] F: [phone] Physical Therapy Plan of Care Date of Evaluation: Date of Surgery: Diagnosis: Cervical Disc Disorder Assessment: Pt is a 58 y/o female referred to PT for cervical disc disorder which Pt reports results in decreased tolerance for looking down and reading, turning head while looking to the sides and with driving as well has disturbed sleep secondary to decreased cervical ROM and strength, decreased thoracic posture, increased accessory muscle tissue tension, cervical and L scapular pain. Frequency and Duration: The patient will be seen 2 x/ wk x 5 wks. Short Term Goals: Initiate HEP. Improve baseline pain to at most 4/10; initial 7/10. [facility] Goals: I with home program. Pt will report < 1 hour disturbed night sleep d/t cervical discomfort; initial: 2-3 hours disturbed. Pt will report only slight pain in neck with reading desired amount; initial: moderate pain. Pt will improve NDI by at least 9 points in order to demonstrate improved cervical function. Treatment Plan: Modalities to reduce pain, spasms and effusion. Manual therapy to restore motion and function. Therapeutic exercise to improve strength and flexibility. Neuromuscular re-education for posture and balance. Therapeutic activities to return to functional activities of daily living. Electronically signed by: Ravinder Grady PT. Please sign and return to therapist. Thank you for your referral.
--- NOTE | 2023-06-10 08:51 | MHC.PT.DC ---
[facility] [place] Office [place] Office [place] Office [address] Marsha Garvey 140 [facility] [phone] F: [phone] F: [phone] F: [phone] F: [phone] Physical Therapy Discharge Report Diagnosis: Cervical Disc Disorder Date of Surgery: Date of Evaluation: 05/31/23 Date of Discharge: 06/10/23 Treatments to Date: 5 Cancellations to Date: 2 No Shows to Date: Discharge Status: Patient Elected to Stop Discharge Summary: . Electronically signed by: Ravinder Grady PT Please sign and return to therapist. Thank you for your referral.
== END 2023-06-10 08:52 | disposition home or self-care (01) ==
LOC: HO.PTCHIC 08:00
PROVIDERS: PCP Nurse Practitioner Family; Visit Provider Nurse Practitioner Family
DX: M50.90 Cervical disc disorder, unspecified, unspecified cervical region (principal)
CPT/HCPCS: 97110; 97140; 97161

== ENCOUNTER 2023-05-31 12:00 | Outpatient (REF) | payer OTHER, SELFPAY ==
[2023-05-31 12:49] VITALS: BP 120/79; PULSE 68; RESP 16; TEMP 36.4; O2SAT 97
[2023-05-31 14:19] VITALS: BMI 27.2
[2023-05-31 14:25] VITALS: BP 136/92; PULSE 58; RESP 16; O2SAT 99
== END 2023-05-31 12:01 | disposition home or self-care (01) ==
LOC: HO.MS 12:00
PROVIDERS: PCP Nurse Practitioner Family; Visit Provider Ophthalmology
DX: D23.122 Other benign neoplasm of skin of left lower eyelid, including canthus (principal); I10 Essential (primary) hypertension
CPT/HCPCS: 88302; 88305

== ENCOUNTER 2023-08-05 10:51 | Outpatient (AMB) | payer OTHER, SELFPAY ==
[2023-08-05 10:58] VITALS: BP 110/64; PULSE 63; O2SAT 97; BMI 28.1
--- NOTE | 2023-08-05 10:58 | MHC.PC.OV ---
Vital Signs 08/05/23 10:58 Height 5 ft 1 in Weight 148 lb 8 oz BMI 28.1 BP 110/64 Blood Pressure Location Rt brachial Position Sitting Pulse 63 Pulse Source Pulse Oximeter Pulse Oximetry (%) 97 Oxygen Delivery Method Room Air Intake Visit Reasons: Annual PE Due Intake Note: pt is also has pain in left shoulder and can not sleep on her left side Allergies hydrochlorothiazide Allergy (Unknown, Verified 08/05/23 11:34) unknown lisinopril Allergy (Unknown, Verified 08/05/23 11:34) unknown procaine [From NOVOCAIN] Allergy (Unknown, Verified 08/05/23 11:34) UNKNOWN atorvastatin Adverse Reaction (Unknown, Verified 08/05/23 11:34) myalgias hydromorphone [Dilaudid] Adverse Reaction (Unknown, Verified 08/05/23 11:34) lightheaded, dizziness seasonal Allergy (Unknown, Uncoded 08/05/23 11:34) unknown Medication List - Last Reconciled 08/05/23 by LIZBETH Godinez alcohol swabs (Alcohol Prep Pads) 1 pad topical TID 30 days atorvastatin 40 mg PO DAILY blood sugar diagnostic (FreeStyle Lite Strips) tid testing blood-glucose meter (FreeStyle Lite Meter kit) tid testing buspirone 15 mg PO BID diltiazem HCl 120 mg PO DAILY famotidine 40 mg PO BID fluticasone propionate 50 mcg/actuation (Children's Flonase Allergy Relief) 1 spray intranasal BID lancets (FreeStyle Lancets) tid testing lorazepam 1 mg PO before flying PRN; 3 days losartan 50 mg PO DAILY 90 days magnesium oxide 400 mg PO DAILY 90 days sertraline 75 mg (1.5 x 50 mg) PO DAILY 90 days spironolactone 25 mg PO DAILY Tobacco use date assessed: 08/05/23 Dental Screening Dental Screen Date: 08/05/23 Did you have a dental visit in the last 12 months?: Yes Did you have a dental problem in the last 6 months where you did not have access to dental care?: No Was dental information given to patient?: Patient has dentist HPI Annual PE Due HPI Details Pt is here for a PE. Will order labs. Mammo is scheduled. 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 Pt sees GI, she has a follow up in September. Pt is a diabetic, on an ARB and a statin. Due for A1C, will order. Microalbumin is up to date. Denies polyuria, polydipsia, and neuropathy. Pt denies any signs and symptoms of hypoglycemia and does know how to correct it. Pt has not been checking her blood sugar. Pt c/o left shoulder pain. She has tried massage therapy in the past but this made the pain worse. Will order xr. [facility] Medical History YULY (obstructive sleep apnea) Skin tags, multiple acquired PAC (premature atrial contraction) Toe pain, right Hypothyroidism Hyperglycemia Hyperlipemia Palpitations HTN (hypertension) Esophageal hernia Anxiety Surgical History H/O colonoscopy History of hysteroscopy Family History Father Hyperlipidemia Stroke Mother HTN (hypertension) Hyperlipidemia Stroke Brother No problems noted. Daughter No problems noted. Daughter No problems noted. Social History Housing: House Alcohol intake: never Patient Tobacco Use Status: Never used Tobacco e-Cigarette/Vaping Use: Never Used Second Hand Smoke Exposure: No service: No Current occupational status: other Cognitive needs: No Hearing needs: No Vision needs: No Female Reproductive History Menstrual Age of Menarche: 12 Questionnaire Thrive Questionnaire Date Thrive assessed: 05/05/22 DEJA-7 AMB Questionnaire DEJA-7 Date DEJA - 7 assessed: 11/10/22 Source: Developed by Drs. Kali Meneses, Melisa Cha, Yaron Chao and colleagues, with an educational joshua from [employer]. Review of Systems Const Denies chills and Denies fever(s) Eyes Denies blurry vision ENT Denies vertigo, Denies dizziness and Denies sore throat Card Denies chest pain at rest, Denies chest pain with activity, Denies diaphoresis, Denies dyspnea and Denies dyspnea on exertion Resp Denies cough, Denies dyspnea, Denies dyspnea on exertion and Denies wheezing GI Denies abdominal pain, Denies melena, Denies hematochezia, Denies constipation, Denies diarrhea and Denies loose stools Denies hematuria Musc Denies numbness and Denies tingling Skin/Breast Denies lesions Neuro Denies vertigo, Denies dizziness, Denies numbness and Denies tingling Psych Denies anxiety, Denies depression, Denies homicidal ideation, Denies suicidal ideation and Denies other (substance abuse) Aller/Immun Denies wheezing Physical exam (Primary Care) Vital Signs: Last Vital Signs Pulse 63 08/05/23 10:58 BP 110/64 08/05/23 10:58 Pulse Ox 97 08/05/23 10:58 Oxygen Delivery Method Room Air 08/05/23 10:58 BMI result Body Mass Index 28.1 Tobacco/Smoking Status: Tobacco use Status Tobacco use date assessed 08/05/23 08/05/23 11:03 Patient Tobacco Use Status Never used Tobacco 08/05/23 11:03 e-Cigarette/Vaping Use Never Used 08/05/23 11:03 Thrive Assessment: Date of Thrive Assessment Date Thrive assessed 05/05/22 08/05/23 11:03 Const General: cooperative Nutritional Appearance: well nourished Orientation/consciousness: patient oriented x3 HENMT Head: Yes normal to inspection, Yes normocephalic and Yes atraumatic Ears: TM's normal bilaterally Eyes General: appearance normal, both eyes and all related structures Alignment and Position: alignment normal and position normal Neck Neck: Yes normal visual inspection and Yes no lymphadenopathy Thyroid: Thyroid normal Resp Effort & Inspection: normal respiratory effort Auscultation: clear to auscultation bilaterally Cardio Rate: regular rate Rhythm: regular rhythm Heart sounds: S1 normal heart sound present, S2 normal heart sound present and Murmur heart sound present systolic GI Palpation (GI): Soft to palpation and nontender Auscultation: normal bowel sounds Skin Rashes: no rashes Neuro General: patient oriented x3, moves all extremities, no focal motor deficits and deep tendon reflexes 2+ bilaterally Romberg Test: Negative Extrem Other: left shoulder: + neer's, + hawkin's, + eduardo's, bilat feet: + sensation with use of monofilament, feet intact Psych Appearance: grossly normal Mental Status: mental status grossly normal Speech and movement: Normal speech and movement present Affect: normal affect Attitude: cooperative Thought process: Normal thought process present Thought content: Normal thought content present Insight: Good insight present (Psych) Judgement: Good judgement present (Psych) Assessment and Plan Assessment & Plan (1) Left shoulder pain: Code(s): M25.512 - Pain in left shoulder Plan: XR ordered (2) Diabetes: Code(s): E11.9 - Type 2 diabetes mellitus without complications Plan: Labs ordered (3) Physical exam: Code(s): Z00.00 - Encounter for general adult medical examination without abnormal findings Plan The patient agreed to the use of a biomedical field service engineer for this encounter. Scribed for [facility] Lutz-[facility] by Cassie Pulido biomedical field service engineer, on 08/05/2023 at 11:25 EST Orders: Orders XR shoulder LT min 2V Today M25.512 - Pain in left shoulder Comprehensive [place]. Panel Fast Today M25.512 - Pain in left shoulder, Z00.00 - Encounter for general adult medical examination without abnormal findings TSH reflex Free T4 Today M25.512 - Pain in left shoulder, Z00.00 - Encounter for general adult medical examination without abnormal findings UA CC w/rflx Micro + Cult Today M25.512 - Pain in left shoulder, Z00.00 - Encounter for general adult medical examination without abnormal findings Lipid Panel Today M25.512 - Pain in left shoulder, Z00.00 - Encounter for general adult medical examination without abnormal findings Complete Blood Count Auto Diff Today M25.512 - Pain in left shoulder, Z00.00 - Encounter for general adult medical examination without abnormal findings Hemoglobin A1c Today E11.9 - Type 2 diabetes mellitus without complications Coding Level of Care Code Est Pt Prev Care 40-64y(58031) Diagnoses Left shoulder pain M25.512 Diabetes E11.9 Physical exam Z00.00
== END 2023-08-05 11:52 | disposition home or self-care (01) ==
PROVIDERS: Visit Provider Nurse Practitioner Family
DX: Z00.00 Encounter for general adult medical examination without abnormal findings (principal); M25.512 Pain in left shoulder; E11.9 Type 2 diabetes mellitus without complications
CPT/HCPCS: 99396

== ENCOUNTER 2023-08-05 11:52 | Outpatient (REF) | payer OTHER, SELFPAY ==
--- NOTE | ~2023-08-05 | XR_ITS ---
EXAMINATION: XR SHOULDER, LEFT CLINICAL INFORMATION: Pain. COMPARISON: None available. TECHNIQUE: AP external rotation, Grashey, scapular Y, and axillary views of the left shoulder. FINDINGS: The bones and soft tissues are normal. No fracture. Glenohumeral and acromioclavicular alignment is anatomic with normal joint space. No abnormal soft tissue calcifications. XR/XR shoulder LT min 2V IMPRESSION: Normal left shoulder.
== END 2023-08-05 11:53 | disposition home or self-care (01) ==
LOC: HO.HMGCX 11:52
PROVIDERS: PCP Nurse Practitioner Family; Visit Provider Nurse Practitioner Family
DX: M25.512 Pain in left shoulder (principal)
CPT/HCPCS: 73030

== ENCOUNTER 2023-10-26 08:44 | Outpatient (AMB) | payer OTHER, SELFPAY ==
--- NOTE | 2023-10-26 08:45 | MHC.OFFVIS ---
Intake Vital Signs 10/26/23 08:48 Height 5 ft 1 in Weight 149 lb 7.574 oz BMI 28.2 BP 118/76 Blood Pressure Location Lt brachial Position Sitting Pulse 57 Intake Visit Reasons: Follow up/Confirmed Intake Note: follow up w/ EKG Manager Packaging Required: No Accompanied by: Self / Same As Patient Allergies hydrochlorothiazide Allergy (Unknown, Verified 10/26/23 08:49) unknown lisinopril Allergy (Unknown, Verified 10/26/23 08:49) unknown procaine [From NOVOCAIN] Allergy (Unknown, Verified 10/26/23 08:49) UNKNOWN atorvastatin Adverse Reaction (Unknown, Verified 10/26/23 08:49) myalgias hydromorphone [Dilaudid] Adverse Reaction (Unknown, Verified 10/26/23 08:49) lightheaded, dizziness seasonal Allergy (Unknown, Uncoded 10/26/23 08:49) unknown Medication List - Last Reconciled 10/26/23 by Jc Dangelo MD alcohol swabs (Alcohol Prep Pads) 1 pad topical TID 30 days atorvastatin 40 mg PO DAILY blood sugar diagnostic (FreeStyle Lite Strips) tid testing blood-glucose meter (FreeStyle Lite Meter kit) tid testing buspirone 15 mg PO BID diltiazem HCl 120 mg PO DAILY famotidine 40 mg PO BID fluticasone propionate 50 mcg/actuation (Children's Flonase Allergy Relief) 1 spray intranasal BID lancets (FreeStyle Lancets) tid testing lorazepam 1 mg PO before flying PRN; 3 days losartan 50 mg PO DAILY 90 days magnesium oxide 400 mg PO DAILY 90 days sertraline 75 mg (1.5 x 50 mg) PO DAILY 90 days spironolactone 25 mg PO DAILY HPI HPI Comments History of Present Illness Details Angelica is here for follow-up regarding hypertension and premature atrial contractions. She used to have markedly high PAC burden. Then she was put on diltiazem. Also diagnosed to have mild obstructive sleep apnea and but unable tolerate CPAP. Overall, doing well. No complaints like angina or shortness of breath or palpitations or in fact anything cardiac sounding. Overall, no new concerns. [facility] Medical History YULY (obstructive sleep apnea) Skin tags, multiple acquired PAC (premature atrial contraction) Toe pain, right Hypothyroidism Hyperglycemia Hyperlipemia Palpitations HTN (hypertension) Esophageal hernia Anxiety Surgical History H/O colonoscopy History of hysteroscopy Family History Father Hyperlipidemia Stroke Mother HTN (hypertension) Hyperlipidemia Stroke Brother No problems noted. Daughter No problems noted. Daughter No problems noted. Social History Housing: House Alcohol intake: never Patient Tobacco Use Status: Never used Tobacco e-Cigarette/Vaping Use: Never Used Second Hand Smoke Exposure: No service: No Current occupational status: other Cognitive needs: No Hearing needs: No Vision needs: No Female Reproductive History Menstrual Age of Menarche: 12 Review of Systems Const Denies weakness ENT Denies dizziness Card Denies chest pain, Denies chest pain with activity, Denies syncope, Denies rapid heart rate, Denies pedal edema, Denies edema, Denies leg edema, Denies lightheadedness, Denies palpitations, Denies dyspnea, Denies dyspnea on exertion and Denies orthopnea Resp Denies cough, Denies dyspnea and Denies dyspnea on exertion GI Denies hematochezia and Denies change in stool character Musc Denies abnormal gait, Denies muscle cramps, Denies muscle weakness, Denies numbness, Denies radiating pain into limb and Denies tingling Neuro Denies abnormal gait, Denies dizziness, Denies syncope, Denies numbness, Denies tingling and Denies weakness Endo Denies palpitations Physical Exam Vital Signs: Last Vital Signs Pulse 57 10/26/23 08:48 BP 118/76 10/26/23 08:48 BMI result Body Mass Index 28.2 Const General: comfortable and no acute distress Orientation/consciousness: patient oriented x3 HEENT Other: Unremarkable Head: Yes normal to inspection Neck Neck: Yes normal visual inspection Chest Chest palpation & inspection: normal inspection of the chest Resp Auscultation: clear to auscultation bilaterally Cardio Palpation: normal PMI Heart sounds: S1 normal heart sound present, S2 normal heart sound present, no gallops, no murmurs and no rubs GI Palpation (GI): Soft to palpation Back/Spine/Pelvis Other: unremarkable Skin General skin exam: no rashes or lesions noted Neuro General: patient oriented x3 Extrem General: Yes normal to inspection Psych Mental Status: mental status grossly normal Office Procedures EKG Details: EKG with sinus rhythm at 57/Min; no significant ST-T changes and otherwise unremarkable. [place]. [id number], Complete Assessment & Plan Assessment & Plan (1) PAC (premature atrial contraction): Code(s): I49.1 - Atrial premature depolarization Plan: In the most recent Holter, rare ectopy only. Nothing of significance. May remain on diltiazem. (2) Essential hypertension: Code(s): I10 - Essential (primary) hypertension Plan: Currently on a combination of losartan and spironolactone. Unremarkable labs. (3) YULY (obstructive sleep apnea): Code(s): G47.33 - Obstructive sleep apnea (adult) (pediatric) Plan: Sleep study from 2019 showed mild sleep apnea. Unable to use. Has tried several times. (4) Mixed hyperlipidemia: Code(s): E78.2 - Mixed hyperlipidemia Plan: Her LDL was as much as 177 mg/dL. On statins. Subsequent LDL levels are in the 70s, 80s and 90mg/dl. No further changes. Coding Level of Care Code Est Pt Level 4 (35637) Diagnoses PAC (premature atrial contraction) I49.1 Essential hypertension I10 YULY (obstructive sleep apnea) G47.33 Mixed hyperlipidemia E78.2 CPT Codes EKG - CPT: 79783-[id number], Complete ([id number])
[2023-10-26 08:48] VITALS: BP 118/76; PULSE 57; BMI 28.2
== END 2023-10-26 09:00 | disposition home or self-care (01) ==
PROVIDERS: PCP Nurse Practitioner Family; Visit Provider Internal Medicine
DX: I49.1 Atrial premature depolarization (principal); I10 Essential (primary) hypertension; G47.33 Obstructive sleep apnea (adult) (pediatric); E78.2 Mixed hyperlipidemia
CPT/HCPCS: 93010; 99214

== ENCOUNTER → 2023-10-26 08:44 | Outpatient (BNVA) | payer OTHER, SELFPAY | PROVIDERS: PCP Nurse Practitioner Family; Visit Provider Internal Medicine | DX: I49.1 Atrial premature depolarization (principal); I10 Essential (primary) hypertension; G47.33 Obstructive sleep apnea (adult) (pediatric); E78.2 Mixed hyperlipidemia; Z79.899 Other long term (current) drug therapy | CPT/HCPCS: 93005; 99212 ==

== ENCOUNTER 2023-12-30 07:24 | Outpatient (AMB) | payer OTHER, SELFPAY ==
--- NOTE | 2023-12-30 07:11 | MHC.PC.OV ---
Intake Visit Reasons: f/u depression [phone] Allergies hydrochlorothiazide Allergy (Unknown, Verified 12/30/23 07:30) unknown lisinopril Allergy (Unknown, Verified 12/30/23 07:30) unknown procaine [From NOVOCAIN] Allergy (Unknown, Verified 12/30/23 07:30) UNKNOWN atorvastatin Adverse Reaction (Unknown, Verified 12/30/23 07:30) myalgias hydromorphone [Dilaudid] Adverse Reaction (Unknown, Verified 12/30/23 07:30) lightheaded, dizziness seasonal Allergy (Unknown, Uncoded 12/30/23 07:30) unknown Medication List - Last Reconciled 12/30/23 by LIZBETH Godinez alcohol swabs (Alcohol Prep Pads) 1 pad topical TID 30 days atorvastatin 40 mg PO DAILY blood sugar diagnostic (FreeStyle Lite Strips) tid testing blood-glucose meter (FreeStyle Lite Meter kit) tid testing buspirone 15 mg PO BID diltiazem HCl 120 mg PO DAILY famotidine 40 mg PO BID fluticasone propionate 50 mcg/actuation (Children's Flonase Allergy Relief) 1 spray intranasal BID lancets (FreeStyle Lancets) tid testing lorazepam 1 mg PO before flying PRN; 3 days losartan 50 mg PO DAILY 90 days magnesium oxide 400 mg PO DAILY 90 days sertraline 75 mg (1.5 x 50 mg) PO DAILY 90 days spironolactone 25 mg PO DAILY Tobacco use date assessed: 08/05/23 HPI f/u depression [phone] HPI Details Pt is a diabetic, on an ARB and a statin. Due for A1C, will order. Due for microalbumin, will order. Denies polyuria, polydipsia, and neuropathy. Pt denies any signs and symptoms of hypoglycemia and does know how to correct it. Pt reports that her fasting blood sugar has been in the 120s. Pt c/o stress incontinence. She has had previous vaginal births. Will refer to urology. Depression: Pt is seeing a therapist. She reports doing well. Pt is leaving to see her family in [place] in a couple months and is excited for this. Denies any SI and HI. [facility] Medical History YULY (obstructive sleep apnea) Skin tags, multiple acquired PAC (premature atrial contraction) Toe pain, right Hypothyroidism Hyperglycemia Hyperlipemia Palpitations HTN (hypertension) Esophageal hernia Anxiety Surgical History H/O colonoscopy History of hysteroscopy Family History Father Hyperlipidemia Stroke Mother HTN (hypertension) Hyperlipidemia Stroke Brother No problems noted. Daughter No problems noted. Daughter No problems noted. Social History Housing: House Alcohol intake: never Patient Tobacco Use Status: Never used Tobacco e-Cigarette/Vaping Use: Never Used Second Hand Smoke Exposure: No service: No Current occupational status: other Cognitive needs: No Hearing needs: No Vision needs: No Female Reproductive History Menstrual Age of Menarche: 12 Questionnaire Thrive Questionnaire Date Thrive assessed: 05/05/22 DEJA-7 AMB Questionnaire DEJA-7 Date DEJA - 7 assessed: 11/10/22 Source: Developed by Drs. Kali Meneses, Melisa Cha, Yaron Chao and colleagues, with an educational joshua from [employer]. Review of Systems Const Reports as per HPI Physical exam (Primary Care) Tobacco/Smoking Status: Tobacco use Status Tobacco use date assessed 08/05/23 12/30/23 07:11 Patient Tobacco Use Status Never used Tobacco 12/30/23 07:11 e-Cigarette/Vaping Use Never Used 12/30/23 07:11 Thrive Assessment: Date of Thrive Assessment Date Thrive assessed 05/05/22 12/30/23 07:11 Const General: cooperative Orientation/consciousness: patient oriented x3 Neuro General: patient oriented x3 Psych Appearance: grossly normal Mental Status: mental status grossly normal Speech and movement: Clear speech present Affect: normal affect Attitude: cooperative Thought process: Normal thought process present Thought content: Normal thought content present Insight: Good insight present (Psych) Judgement: Good judgement present (Psych) Telehealth Telehealth Location of provider rendering services: practice address Location of patient: address on file Patient Identification confirmed using: Name, : Yes Telehealth method: video Patient verbally consented to treatment: Yes Patient verbally consented to billing insurance company: Yes Patient informed of any privacy concerns related to visit: Yes Minutes spent on Phone/Video with Pt.: 10 Assessment and Plan Assessment & Plan (1) Diabetes: Code(s): E11.9 - Type 2 diabetes mellitus without complications Plan: Labs ordered (2) Stress incontinence: Code(s): N39.3 - Stress incontinence (female) (male) Plan: Referred to urology Plan The patient agreed to the use of a biomedical engineering internship for this encounter. Scribed for [facility]SE MIGUEL by Cassie Pulido biomedical engineering internship, on 12/30/2023 at 07:15 EST. Orders: Orders Complete Blood Count Auto Diff Today E11.9 - Type 2 diabetes mellitus without complications UA CC w/rflx Micro + Cult Today E11.9 - Type 2 diabetes mellitus without complications Microalbumin, Random (w Creat) Today E11.9 - Type 2 diabetes mellitus without complications Comprehensive [place]. Panel Fast Today E11.9 - Type 2 diabetes mellitus without complications TSH reflex Free T4 Today E11.9 - Type 2 diabetes mellitus without complications Lipid Panel Today E11.9 - Type 2 diabetes mellitus without complications Hemoglobin A1c Today E11.9 - Type 2 diabetes mellitus without complications Referrals Urology Referral N39.3 - Stress incontinence (female) (male) Cologuard Test Z12.11 - Encounter for screening for malignant neoplasm of colon, Z12.12 - Encounter for screening for malignant neoplasm of rectum Coding Level of Care Code Tele Est Pt Level 3 (79979) Diagnoses Diabetes E11.9 Stress incontinence N39.3
== END 2023-12-30 13:54 | disposition home or self-care (01) ==
LOC: HO.HMGC 07:25
PROVIDERS: PCP Nurse Practitioner Family; Visit Provider Nurse Practitioner Family
DX: E11.9 Type 2 diabetes mellitus without complications (principal); N39.3 Stress incontinence (female) (male)
CPT/HCPCS: 99213

== ENCOUNTER 2024-02-14 08:12 | Outpatient (AMB) | payer OTHER, SELFPAY ==
--- NOTE | 2024-02-14 08:15 | A.OFFVIS_ITS ---
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 Allergies hydrochlorothiazide Allergy (Unknown, Verified 02/14/24 08:19) unknown lisinopril Allergy (Unknown, Verified 02/14/24 08:19) unknown procaine [From NOVOCAIN] Allergy (Unknown, Verified 02/14/24 08:19) UNKNOWN atorvastatin Adverse Reaction (Unknown, Verified 02/14/24 08:19) myalgias hydromorphone [Dilaudid] Adverse Reaction (Unknown, Verified 02/14/24 08:19) lightheaded, dizziness seasonal Allergy (Unknown, Uncoded 02/14/24 08:19) unknown Medication List - Last Reconciled 02/14/24 by FORTUNATO AugustinC alcohol swabs (Alcohol Prep Pads) 1 pad topical TID 30 days atorvastatin 40 mg PO DAILY blood sugar diagnostic (FreeStyle Lite Strips) tid testing blood-glucose meter (FreeStyle Lite Meter kit) tid testing buspirone 15 mg PO BID diltiazem HCl CD 180 mg PO DAILY famotidine 40 mg PO BID fluticasone propionate 50 mcg/actuation (Children's Flonase Allergy Relief) 1 spray intranasal BID lancets (FreeStyle Lancets) tid testing lorazepam 1 mg PO before flying PRN; 3 days losartan 50 mg PO DAILY 90 days magnesium oxide 400 mg PO DAILY 90 days sertraline 75 mg (1.5 x 50 mg) PO DAILY 90 days spironolactone 25 mg PO DAILY HPI HPI Rapid Heart beat: Details: Angelica is a 59 yo female with PMH of HTN, palpitations, PACs who was recently seen in the [facility] ED for heart palpitations and swelling in left arm, without acute findings. Today she reports that she has been noticing increasing heart palpitations in the last several weeks. She was recently seen in the ER for her symptom of palpitation along with swelling in her left arm. She tells me that day she was also feeling a pulsation in her head and left foot. Since that time she has only notice the heart palpitations. She does admit to being under high emotional stress. Otherwise no significant changes to her diet, lifestyle. She drinks 1 caffeinated beverage a day which is her norm. No lightheadedness, presyncope, syncope, falls. No shortness of breath, chest discomfort, PND, orthopnea or edema. She feels the skipping in her heart which causes her to become anxious. She is leaving on February 22 to go to [facility] for 2 months. COUNTS INCLUDE 234 BEDS AT THE [facility] Medical History YULY (obstructive sleep apnea) Skin tags, multiple acquired PAC (premature atrial contraction) Toe pain, right Hypothyroidism Hyperglycemia Hyperlipemia Palpitations HTN (hypertension) Esophageal hernia Anxiety Surgical History H/O colonoscopy History of hysteroscopy Family History Father Hyperlipidemia Stroke Mother HTN (hypertension) Hyperlipidemia Stroke Brother Melanoma Daughter No problems noted. Daughter No problems noted. Social History Housing: House Alcohol intake: never Patient Tobacco Use Status: Never used Tobacco e-Cigarette/Vaping Use: Never Used Second Hand Smoke Exposure: No service: No Current occupational status: other Cognitive needs: No Hearing needs: No Vision needs: No Female Reproductive History Menstrual Age of Menarche: 12 Review of Systems Const All systems reviewed & are unremarkable except as noted in HPI and below ENT Denies dizziness Card Details: palpitations Denies chest pain, Denies chest pain at rest, Denies chest pain with activity, Reports rapid heart rate, Denies pedal edema, Denies edema, Denies leg edema, Denies lightheadedness, Denies palpitations, Denies dyspnea, Denies dyspnea on exertion and Denies orthopnea Resp Denies cough, Denies dyspnea and Denies dyspnea on exertion GI Denies hematochezia and Denies change in stool character Musc Denies abnormal gait, Denies limited range of motion, Denies muscle cramps, Denies muscle weakness, Denies numbness, Denies radiating pain into limb, Denies stiffness and Denies tingling Neuro Denies abnormal gait, Denies dizziness, Denies numbness and Denies tingling Endo Denies palpitations Physical Exam Vital Signs: Last Vital Signs Pulse 64 02/14/24 08:16 BP 120/80 02/14/24 08:16 BMI result Body Mass Index 28.2 Const General: cooperative, healthy appearing, comfortable and no acute distress Orientation/consciousness: patient oriented x3 Neck Neck: Yes normal visual inspection Resp Effort & Inspection: normal respiratory effort Auscultation: clear to auscultation bilaterally, no crackles, no rales, no rhonchi and no wheezes Cardio Jugular venous distension: no JVD Rate: regular rate Rhythm: regular rhythm Heart sounds: S1 normal heart sound present, S2 normal heart sound present, no murmurs and no rubs Neuro General: patient oriented x3 Extrem General: Yes normal to inspection, No no pedal edema and No calf tenderness Psych Appearance: grossly normal Mental Status: mental status grossly normal Speech and movement: Normal speech and movement present Assessment & Plan Assessment & Plan (1) Palpitations: Comment: frequent APCs on a Holter follow up with cardio Code(s): R00.2 - Palpitations Category: Medical Plan: History of heart palpitations. Prior Holter monitor had shown frequent PACs. She was put on diltiazem to help limit frequency of PACs. Last Holter monitor done 12/21/2022 showed sinus rhythm with average heart rate 78, rare ectopy. Last echo done 11/26/2021 showed EF 64%, no valve abnormalities and no regional wall motion abnormalities. ER evaluation on 02/11/2024 showed no significant findings. Today she reports increased heart palpitations causing her much anxiety. She does have social/emotional stressors which can contribute to her symptoms. Will increase diltiazem from 120 mg daily up to 180 mg daily. Will check a Holter monitor to assess frequency of PACs and for any atrial fibrillation. Discussed options for stress reduction. She says she is traveling to [facility] for 2 months to see her family which may be helpful. Cardiology follow-up in 3 months, sooner if needed. (2) PAC (premature atrial contraction): Code(s): I49.1 - Atrial premature depolarization Category: Medical Plan: As above (3) HTN (hypertension): Code(s): I10 - Essential (primary) hypertension Category: Medical Qualifiers: Hypertension type: essential hypertension Qualified Code(s): I10 - Essential (primary) hypertension Plan: Well controlled at this time. Increasing diltiazem dose. If blood pressure comes down then can reduce losartan dose to 25 mg daily from 50 mg daily. She monitors blood pressure at home and will call if concerns. Plan Time spent on chart review, documentation, interview and assessment Orders: Orders ECG 3 day holter monitor Today I49.1 - Atrial premature depolarization, R00.2 - Palpitations Medications: New diltiazem HCl CD dose increased 180 mg PO DAILY 90 caps 3RF Discontinued diltiazem HCl CD Discontinued Reason: Doctor's Order 120 mg PO DAILY 90 caps 3RF
[2024-02-14 08:16] VITALS: BP 120/80; PULSE 64; BMI 28.2
== END 2024-02-14 08:42 | disposition home or self-care (01) ==
PROVIDERS: PCP Nurse Practitioner Family; Visit Provider Nurse Practitioner Family
DX: R00.2 Palpitations (principal); I49.1 Atrial premature depolarization; I10 Essential (primary) hypertension
CPT/HCPCS: 99214

== ENCOUNTER → 2024-02-14 08:12 | Outpatient (BNVA) | payer OTHER, SELFPAY | PROVIDERS: PCP Nurse Practitioner Family; Visit Provider Nurse Practitioner Family | DX: R00.2 Palpitations (principal); I49.1 Atrial premature depolarization; I10 Essential (primary) hypertension | CPT/HCPCS: 99212 ==

== ENCOUNTER → 2024-02-16 07:38 | Outpatient (REF) | payer OTHER, SELFPAY ==
--- NOTE | 2024-02-16 07:42 | HM_ITS ---
Conclusion: 1. Patient was monitored for total period of 6 days and 5 hours 2. Baseline was normal sinus rhythm 3. No significant pauses or arrhythmias noted 4. No patient reported events MTDD
== END ==
LOC: HO.CARD 07:38
PROVIDERS: PCP Nurse Practitioner Family; Visit Provider Nurse Practitioner Family
DX: R00.2 Palpitations (principal); I49.1 Atrial premature depolarization
CPT/HCPCS: 93242

== ENCOUNTER → 2024-02-16 07:42 | Outpatient (BNV) | payer OTHER, SELFPAY | PROVIDERS: PCP Nurse Practitioner Family; Visit Provider Internal Medicine Cardiovascular Disease | DX: R00.0 Tachycardia, unspecified (principal) | CPT/HCPCS: 93244 ==

== ENCOUNTER 2024-05-09 10:18 | Outpatient (AMB) | payer OTHER, SELFPAY ==
--- NOTE | 2024-05-09 10:21 | MHC.PC.OV ---
Vital Signs 05/09/24 10:26 Height 5 ft 1 in Weight 152 lb 6 oz BMI 28.8 BP 122/82 Blood Pressure Location Lt brachial Position Sitting Pulse 68 Pulse Source Pulse Oximeter Pulse Oximetry (%) 98 Oxygen Delivery Method Room Air Intake Visit Reasons: 4 month follow up- NEEDS A1C Intake Note: Patient here for DM f/u. Allergies hydrochlorothiazide Allergy (Unknown, Verified 05/09/24 10:26) unknown lisinopril Allergy (Unknown, Verified 05/09/24 10:26) unknown procaine [From NOVOCAIN] Allergy (Unknown, Verified 05/09/24 10:26) UNKNOWN atorvastatin Adverse Reaction (Unknown, Verified 05/09/24 10:26) myalgias hydromorphone [Dilaudid] Adverse Reaction (Unknown, Verified 05/09/24 10:) lightheaded, dizziness seasonal Allergy (Unknown, Uncoded 05/09/24 10:) unknown Tobacco use date assessed: 05/09/24 Dental Screening Dental Screen Date: 05/09/24 Did you have a dental visit in the last 12 months?: Yes Did you have a dental problem in the last 6 months where you did not have access to dental care?: No Was dental information given to patient?: Patient has dentist HPI 4 month follow up- NEEDS A1C HPI Details diabetes: on a statin and ARB. Denies any neuropathy, polyuria, polydipsia. Pt understands the s/s of hypoglycemia and how to correct it. Pt had a eye exam in the last year. 7.7 a1c. Pt would rather not start medication now for her diabeties, but did agree to see a freight manager. [facility] Medical History YULY (obstructive sleep apnea) Skin tags, multiple acquired PAC (premature atrial contraction) Toe pain, right Hypothyroidism Hyperglycemia Hyperlipemia Palpitations HTN (hypertension) Esophageal hernia Anxiety Surgical History H/O colonoscopy History of hysteroscopy Family History Father Hyperlipidemia Stroke Mother HTN (hypertension) Hyperlipidemia Stroke Brother Melanoma Daughter No problems noted. Daughter No problems noted. Social History Housing: House Alcohol intake: never Patient Tobacco Use Status: Never used Tobacco e-Cigarette/Vaping Use: Never Used Second Hand Smoke Exposure: No service: No Current occupational status: other Cognitive needs: No Hearing needs: No Vision needs: No Female Reproductive History Menstrual Age of Menarche: 12 Questionnaire PHQ-9 Over the last 2 weeks, how often have you been bothered by any of the following problems? 18071 - PHQ-9 Billing: Patient declined-do not bill Source: Developed by Drs. Kali Meneses, Melisa Cha, Yaron Chao and colleagues, with an educational joshua from [employer]. Thrive Questionnaire Date Thrive assessed: 05/05/22 I am a: Patient What is your living situation today?: I have a steady place to live Within the past 12 months, did the food you bought not last and you didn't have the money to get more?: I choose not to answer this question Within the past 12 months, did you worry whether your food would run out before you got money to buy more?: Sometimes True Do you have trouble paying for medicines?: I choose not to answer this question Do you have trouble getting transportation to medical appointments?: No Do you have trouble paying your heating and electricity bill?: Yes Do you have trouble taking care of your child, family member or friend?: No Do you have trouble with day-to-day activities such as bathing, preparing meals, shopping, managing finances, etc.?: No Are you currently unemployed and looking for a job?: Yes Are you interested in more education?: Yes Please select the resources that you would like help with: Utilities Currently or been in a relationship where the following occur: No concerns reported THRIVE Score: 2 AUDIT C Alcohol Use Questionnaire (AUDIT-C) 1. How often do you have a drink containing alcohol?: Never Total Score: 0 DEJA-7 AMB Questionnaire DEJA-7 Date DEJA - 7 assessed: 11/10/22 Feeling nervous, anxious, or on edge: 3 = Nearly every day Not being able to stop or control worryin = Nearly every day Worrying too much about different things: 3 = Nearly every day Trouble relaxin = Nearly every day Being so restless that it is hard to sit still: 2 = More than half the days Becoming easily annoyed or irritable: 3 = Nearly every day Feeling afraid as if something awful might happen: 3 = Nearly every day Total DEJA-7 score (0-4 normal; 5-9 mild; 10-14 moderate; 15-21 severe): 20 Source: Developed by Drs. Kali Meneses, Melisa Cha, Yaron Chao and colleagues, with an educational joshua from [employer]. DEJA-7 Assessment Billing DEJA-7 Assessment Tool: DEJA-7 Assessment 44311 (does not want a therapist or medication, denies any SI or HI) Physical exam (Primary Care) Vital Signs: Last Vital Signs Pulse 68 05/09/24 10:26 BP 122/82 05/09/24 10:26 Pulse Ox 98 05/09/24 10:26 Oxygen Delivery Method Room Air 05/09/24 10:26 BMI result Body Mass Index 28.8 Tobacco/Smoking Status: Tobacco use Status Tobacco use date assessed 05/09/24 05/09/24 10:28 Patient Tobacco Use Status Never used Tobacco 05/09/24 10:22 e-Cigarette/Vaping Use Never Used 05/09/24 10:22 Thrive Assessment: Date of Thrive Assessment Date Thrive assessed 05/05/22 05/09/24 10:22 Currently or been in a relationship where the following occur: No concerns reported Resp Effort & Inspection: normal respiratory effort Auscultation: clear to auscultation bilaterally Cardio Rate: regular rate Rhythm: regular rhythm Heart sounds: S1 normal heart sound present and S2 normal heart sound present Neuro Other: feet intact,+ sensation with use of monofilament Results AMB Hemoglobin A1c AMB Hemoglobin A1c 7.7 % Last Edit by JOSE Bernard on 05/09/24 10:56 Results Reviewed Results Reviewed: Laboratory Last Values Hgb A1c (Clinic) 7.7 % (4.0-6.0) H 05/09/24 10:49 Assessment and Plan Assessment & Plan (1) Diabetes: Code(s): E11.9 - Type 2 diabetes mellitus without complications Plan: referral to nutrition, encouraged to get labs drawn Orders: Orders AMB Hemoglobin A1c Today E11.9 - Type 2 diabetes mellitus without complications Referrals Nutrition/Dietitian Referral E11.9 - Type 2 diabetes mellitus without complications Coding Level of Care Code Est Pt Level 3 (51293) Diagnoses Diabetes E11.9 Additional Codes DEJA-7 Assessment Billing - DEJA-7 Assessment Tool: DEJA-7 Assessment 40414 ([id number])
[2024-05-09 10:26] VITALS: BP 122/82; PULSE 68; O2SAT 98; BMI 28.8
== END 2024-05-09 11:30 | disposition home or self-care (01) ==
PROVIDERS: PCP Nurse Practitioner Family; Visit Provider Nurse Practitioner Family
DX: E11.9 Type 2 diabetes mellitus without complications (principal)
CPT/HCPCS: 83036; 99213

== ENCOUNTER 2024-05-15 07:59 | Outpatient (AMB) | payer OTHER, SELFPAY ==
[2024-05-15 08:16] VITALS: BP 100/72; PULSE 72; BMI 28.9
--- NOTE | 2024-05-15 08:16 | A.OFFVIS_ITS ---
Vital Signs 05/15/24 08:16 Height 5 ft 1 in Weight 153 lb 0.013 oz BMI 28.9 BP 100/72 Blood Pressure Location Lt brachial Position Sitting Pulse 72 Pulse Source Pulse Oximeter Intake Visit Reasons: 3 mth s/p holter Allergies hydrochlorothiazide Allergy (Unknown, Verified 05/15/24 08:19) unknown lisinopril Allergy (Unknown, Verified 05/15/24 08:19) unknown procaine [From NOVOCAIN] Allergy (Unknown, Verified 05/15/24 08:19) UNKNOWN atorvastatin Adverse Reaction (Unknown, Verified 05/15/24 08:19) myalgias hydromorphone [Dilaudid] Adverse Reaction (Unknown, Verified 05/15/24 08:19) lightheaded, dizziness seasonal Allergy (Unknown, Uncoded 05/15/24 08:19) unknown Medication List - Last Reconciled 05/15/24 by JAYLIN Augustin alcohol swabs (Alcohol Prep Pads) 1 pad topical TID 30 days atorvastatin 40 mg PO DAILY blood sugar diagnostic (FreeStyle Lite Strips) tid testing blood-glucose meter (FreeStyle Lite Meter kit) tid testing buspirone 15 mg PO BID diltiazem HCl CD 120 mg PO DAILY famotidine 40 mg PO BID fluticasone propionate 50 mcg/actuation (Children's Flonase Allergy Relief) 1 spray intranasal BID lancets (FreeStyle Lancets) tid testing lorazepam 1 mg PO before flying PRN; 3 days losartan 50 mg PO DAILY 90 days magnesium oxide 400 mg PO DAILY 90 days sertraline 75 mg (1.5 x 50 mg) PO DAILY 90 days spironolactone 25 mg PO DAILY HPI HPI 3 mth s/p holter: Details: Angelica is a 59 yo female with PMH of HTN, palpitations, PACs who presents for follow-up. Today she reports that she has been doing very well since her last visit in January. She did spend 2 months in [place] with her parents and found it very relaxing. She feels that her stress levels are better controlled at this time. She has not been noticing any concerning heart palpitations. He prior symptom has improved. She has not been noticing issues with swelling in her left arm like previously reported. She continues to drinks 1 caffeinated beverage a day which is her norm. No lightheadedness, presyncope, syncope, falls. No shortness of breath, chest discomfort, PND, orthopnea or edema. Takes all her meds as directed. [facility] Medical History YULY (obstructive sleep apnea) Skin tags, multiple acquired PAC (premature atrial contraction) Toe pain, right Hypothyroidism Hyperglycemia Hyperlipemia Palpitations HTN (hypertension) Esophageal hernia Anxiety Surgical History H/O colonoscopy History of hysteroscopy Family History Father Hyperlipidemia Stroke Mother HTN (hypertension) Hyperlipidemia Stroke Brother Melanoma Daughter No problems noted. Daughter No problems noted. Social History Housing: House Alcohol intake: never Patient Tobacco Use Status: Never used Tobacco e-Cigarette/Vaping Use: Never Used Second Hand Smoke Exposure: No service: No Current occupational status: other Cognitive needs: No Hearing needs: No Vision needs: No Female Reproductive History Menstrual Age of Menarche: 12 Review of Systems Const All systems reviewed & are unremarkable except as noted in HPI and below ENT Denies dizziness Card Denies chest pain, Denies chest pain at rest, Denies chest pain with activity, Denies rapid heart rate, Denies pedal edema, Denies edema, Denies leg edema, Denies lightheadedness, Denies palpitations, Denies dyspnea, Denies dyspnea on exertion and Denies orthopnea Resp Denies cough, Denies dyspnea and Denies dyspnea on exertion GI Denies hematochezia and Denies change in stool character Musc Denies abnormal gait, Denies limited range of motion, Denies muscle cramps, Denies muscle weakness, Denies numbness, Denies radiating pain into limb, Denies stiffness and Denies tingling Neuro Denies abnormal gait, Denies dizziness, Denies numbness and Denies tingling Endo Denies palpitations Physical Exam Vital Signs: Last Vital Signs Pulse 72 05/15/24 08:16 BP 100/72 05/15/24 08:16 BMI result Body Mass Index 28.9 Const General: cooperative, healthy appearing, comfortable and no acute distress Orientation/consciousness: patient oriented x3 Neck Neck: Yes normal visual inspection Resp Effort & Inspection: normal respiratory effort Auscultation: clear to auscultation bilaterally, no crackles, no rales, no rhonchi and no wheezes Cardio Jugular venous distension: no JVD Rate: regular rate Rhythm: regular rhythm Heart sounds: S1 normal heart sound present, S2 normal heart sound present, no murmurs and no rubs Neuro General: patient oriented x3 Extrem General: Yes normal to inspection, No no pedal edema and No calf tenderness Psych Appearance: grossly normal Mental Status: mental status grossly normal Speech and movement: Normal speech and movement present Assessment & Plan Assessment & Plan (1) Palpitations: Comment: frequent APCs on a Holter follow up with cardio Code(s): R00.2 - Palpitations Category: Medical Plan: History of heart palpitations. Prior Holter monitor had shown frequent PACs. She was put on diltiazem to help limit frequency of PACs. Last Holter monitor done 12/21/2022 showed sinus rhythm with average heart rate 78, rare ectopy. Last echo done 11/26/2021 showed EF 64%, no valve abnormalities and no regional wall motion abnormalities. ER evaluation on 02/11/2024 showed no significant findings. On last visit she did report increasing feeling of heart palpitations. She was under high social/emotional stressors at that time which can contribute to her symptoms. I had recommended increasing diltiazem up to 180 mg daily, which she did not do. She continued on 120 mg daily. Will increase diltiazem from 120 mg daily up to 180 mg daily. A Holter monitor was done on 02/16/2024 for 6 days showing sinus rhythm with no significant pauses or arrhythmia. She did spent 2 months in [place] and overall has been feeling better. She continues on diltiazem 120 mg daily. No changes made at this time. Continue to limit caffeinated beverages. Continue physical activity as tolerated. Cardiology follow-up in 1 year at her request, sooner if needed. (2) PAC (premature atrial contraction): Code(s): I49.1 - Atrial premature depolarization Category: Medical Plan: As above (3) HTN (hypertension): Code(s): I10 - Essential (primary) hypertension Category: Medical Qualifiers: Hypertension type: essential hypertension Qualified Code(s): I10 - Essential (primary) hypertension Plan: Well controlled at this time. She recently saw her PCP and he opted to continue her current medications. She is hoping to be able to come off of at least 1 medication in time. Plan Time spent on chart review, documentation, interview and assessment Coding Level of Care Code Est Pt Level 3 (58339) Diagnoses Palpitations R00.2 PAC (premature atrial contraction) I49.1 Essential hypertension I10 Hypertension type: essential hypertension Time Spent (min) 24
== END 2024-05-15 08:37 | disposition home or self-care (01) ==
PROVIDERS: PCP Nurse Practitioner Family; Visit Provider Nurse Practitioner Family
DX: R00.2 Palpitations (principal); I49.1 Atrial premature depolarization; I10 Essential (primary) hypertension
CPT/HCPCS: 99213

== ENCOUNTER → 2024-05-15 07:59 | Outpatient (BNVA) | payer OTHER, SELFPAY | PROVIDERS: PCP Nurse Practitioner Family; Visit Provider Nurse Practitioner Family | DX: I10 Essential (primary) hypertension (principal); R00.2 Palpitations; I49.1 Atrial premature depolarization | CPT/HCPCS: 99212 ==

== ENCOUNTER 2024-06-13 09:22 | Outpatient (AMB) | payer OTHER, SELFPAY ==
[2024-06-13 09:38] VITALS: BMI 28.7
--- NOTE | 2024-06-13 09:38 | A.OFFVIS_ITS ---
VS Expanded 06/13/24 09:38 06/20/24 13:36 Height 5 ft 1 in 5 ft 1 in Weight 152 lb 1.903 oz 152 lb BMI 28.7 28.7 Intake Visit Reasons: T2DM/LVM Allergies hydrochlorothiazide Allergy (Unknown, Verified 05/15/24 08:19) unknown lisinopril Allergy (Unknown, Verified 05/15/24 08:19) unknown procaine [From NOVOCAIN] Allergy (Unknown, Verified 05/15/24 08:19) UNKNOWN atorvastatin Adverse Reaction (Unknown, Verified 05/15/24 08:19) myalgias hydromorphone [Dilaudid] Adverse Reaction (Unknown, Verified 05/15/24 08:19) lightheaded, dizziness seasonal Allergy (Unknown, Uncoded 05/15/24 08:19) unknown Nutrition Presentation Details: Pt presents for MNT for T2DM. Pt was referred by PCP, Sherrie Tolentino Pt reports lack of nutrition ed related to T2DM and admits to increase intake of empty calorie foods. Food frequency fish: 0-1/wk fruits: 0-1/d dairy: 3+ starches> 20 serving/d ve serving/d fluids: water/soda/juice physical activity: reports always active ETOH: occ smoking:denies BS Monitoring Most Recent Diabetes Results: No Data to Display ELQ-Dbbowji-Kl.Jeor Equation Height: 5 ft 1 in Weight: 152 lb Resting Metabolic Rate: 1205.87 Calculated Activity Level: Mild Activity Calories Needed to Maintain Weight: 1658.07 Diagnosis Nutrition problem #1: food nutri know defi As related to (etiology) #1: diagnosis (A1c at 7.7% on 04/2024) As evidenced by (sign/symptom) #1: knowledge deficit of diet [facility] Medical History YULY (obstructive sleep apnea) Skin tags, multiple acquired PAC (premature atrial contraction) Toe pain, right Hypothyroidism Hyperglycemia Hyperlipemia Palpitations HTN (hypertension) Esophageal hernia Anxiety Surgical History H/O colonoscopy History of hysteroscopy Family History Father Hyperlipidemia Stroke Mother HTN (hypertension) Hyperlipidemia Stroke Brother Melanoma Daughter No problems noted. Daughter No problems noted. Social History Housing: House Alcohol intake: never Patient Tobacco Use Status: Never used Tobacco e-Cigarette/Vaping Use: Never Used Second Hand Smoke Exposure: No service: No Current occupational status: other Cognitive needs: No Hearing needs: No Vision needs: No Female Reproductive History Menstrual Age of Menarche: 12 Assessment & Plan Assessment & Plan (1) Diabetes: Code(s): E11.9 - Type 2 diabetes mellitus without complications Category: Medical Plan: Wt: 69 Kg ( 05/2024 ) Est kcal needs as per MSJ: [id number] (40% carb, 30% protein/fat) Est fluid needs as per 25-30 ml/d: 2100 Est prot per day as per 1 g/kg bw: 69 Recommend fiber intake : 8-10 g per day and gradually increase to 25-28 g per day for women and 35-38 g for men or as tolerated Recommend sodium intake per day : less than 2000 mg Educated patient on: ( R = reviewed V = verbalizes understanding N/R = needs review N/A = not applicable * Food sources of carbohydrate, adequate serving sizes and its role in various health conditions: R * Differences between complex carbohydrates a simple carbohydrates, role of fiber in diet: R * Lean protein sources of foods: R * Differences between types of fats and role in diet (mono on saturated fat fatty acids, saturated fatty acids, trans fats): R V N/R * Food sources of sodium in salt and healthy modifications for heart health in kidney health: R V R/V * Vitamins and minerals: R V N/R * Healthy plate method concept: R * Physical activity: Benefits a precaution: R V N/R * Hypoglycemia protocol (rule of 15): R V N/R * Dietary prevention of Hyperglycemia: R Patient Instructions: Practice mindful eating Have herb/fruit infused water , working n reducing on sugary beverages Follow healthy platemethod at dinner Coding Level of Care Code Nutr Indiv Intake (63964) Diagnoses Diabetes E11.9 Time Spent (min) 30
[2024-06-21 09:12] VITALS: BMI 28.7
== END 2024-06-13 10:15 | disposition home or self-care (01) ==
PROVIDERS: PCP Nurse Practitioner Family; Visit Provider Dietitian, Registered
DX: E11.9 Type 2 diabetes mellitus without complications (principal)

== ENCOUNTER → 2024-06-13 09:22 | Outpatient (BNVA) | payer OTHER, SELFPAY | PROVIDERS: PCP Nurse Practitioner Family; Visit Provider Dietitian, Registered | DX: E11.9 Type 2 diabetes mellitus without complications (principal) | CPT/HCPCS: 97802 ==

== ENCOUNTER 2024-07-19 08:26 | Outpatient (REF) | payer OTHER, SELFPAY ==
[2024-07-19 09:36] LABS: MANUAL DIFF FLAG NO
[2024-07-19 09:54] LABS: Appearance Urine Clear; Color Urine Yellow; Glucose Urine UA Negative (Negative); Leukocyte Esterase Urine Moderate (2+) (Negative); Nitrite Urine Negative (Negative); UMIC TRIGGER UACC YES; Urine Blood Trace (Negative); Urine Ketones Negative (Negative); Urine Protein Negative (Neg-Trace)
[2024-07-19 09:59] LABS: Bacteria Urine Trace (None Seen); Hyaline Casts Urine 0-2 /LPF (0-2); UACC Culture Trigger YES
[2024-07-19 10:05] LABS: Basophils Percent Auto 0.4 % (0-2); Eosinophils Absolute Auto 0.3 X10*3/uL (0.0-0.4); Eosinophils Percent Auto 4.3 % (0-4); Hematocrit 40.9 % (37.0-47.0); Hemoglobin 13.4 g/dl (12.0-16.0); Imm Gran Abs Auto 0.02 X10*3/uL (0.00-0.03); Imm Gran Pct Auto 0.3 % (0.0-0.4); Lymphocytes Absolute Auto 2.3 X10*3/uL (1.2-4.9); Lymphocytes Percent Auto 29.4 % (20-40); Mean Corpuscular HGB Conc 32.8 g/dl (31.0-35.0); Mean Corpuscular Hemoglobin 29.3 pg (27.0-33.0); Mean Corpuscular Volume 89.5 fL (80.0-98.0); Mean Platelet Volume 9.5 fL (9.4-12.3); Monocytes Absolute Auto 0.5 X10*3/uL (0.1-1.2); Monocytes Percent Auto 6.5 % (2-11); Neutrophils Absolute Auto 4.6 x10*3/uL (2.0-8.3); Neutrophils Percent Auto 59.1 % (45-73); Platelet Count 248 X10*3/uL (160-400); Red Blood Count 4.57 X10*6/uL (4.20-5.50); Red Cell Distribution Width 13.3 % (11.0-16.0); White Blood Count 7.7 X10*3/uL (4.8-10.8)
[2024-07-19 10:15] LABS: Estimated Average Glucose 154 mg/dL
[2024-07-19 11:00] LABS: Creatinine Urine 155.83 mg/dL
[2024-07-19 12:58] LABS: Alanine Aminotransferase 25 U/L (0-31); Albumin Level 4.6 g/dL (3.5-5.0); Alkaline Phosphatase 92 U/L (39-117); Anion Gap 14 (12-20); Aspartate Amino Transferase 22 U/L (5-31); Bilirubin Total 0.4 mg/dL (0.0-1.0); Blood Urea Nitrogen 19 mg/dL (9-16); Calcium 9.7 mg/dL (8.4-10.2); Carbon Dioxide 27 mmol/L (22-29); Chloride 105 mmol/L (96-108); Cholesterol 144 mg/dL (<200); Estimated Glomerular Filt Rate > 60; Glucose Fasting 138 mg/dL (60-99); HDL Cholesterol 46 mg/dL (>40); LDL Cholesterol Calculated 76 mg/dL (<100); Potassium 4.6 mmol/L (3.3-5.1); Sodium 141 mmol/L (135-145); Total Protein 7.5 g/dL (6.5-8.0); Triglycerides 111 mg/dL (<150)
[2024-07-19 13:14] LABS: TSH reflex Free T4 2.68 uIU/mL (0.32-4.0)
== END 2024-07-19 08:27 | disposition home or self-care (01) ==
LOC: HO.LAB 08:26
PROVIDERS: PCP Nurse Practitioner Family; Referring Provider Nurse Practitioner Family; Visit Provider Dietitian, Registered
DX: E11.9 Type 2 diabetes mellitus without complications (principal); Z71.3 Dietary counseling and surveillance; Z00.00 Encounter for general adult medical examination without abnormal findings; M25.512 Pain in left shoulder
CPT/HCPCS: 36415; 80053; 80061; 81001; 82043; 82570; 83036; 84443; 85025; 87086; 87147; 97803

== ENCOUNTER 2024-07-19 08:26 | Outpatient (AMB) | payer OTHER, SELFPAY ==
[2024-07-19 08:33] VITALS: BMI 27.2
--- NOTE | 2024-07-19 08:33 | A.OFFVIS_ITS ---
VS Expanded 07/19/24 08:33 Height 5 ft 1 in Weight 143 lb 11.862 oz BMI 27.2 Intake Visit Reasons: T2DM/CONFIRMED Allergies hydrochlorothiazide Allergy (Unknown, Verified 05/15/24 08:19) unknown lisinopril Allergy (Unknown, Verified 05/15/24 08:19) unknown procaine [From NOVOCAIN] Allergy (Unknown, Verified 05/15/24 08:19) UNKNOWN atorvastatin Adverse Reaction (Unknown, Verified 05/15/24 08:19) myalgias hydromorphone [Dilaudid] Adverse Reaction (Unknown, Verified 05/15/24 08:19) lightheaded, dizziness seasonal Allergy (Unknown, Uncoded 05/15/24 08:19) unknown Nutrition Presentation Details: Pt presents for MNT f/u for T2DM, diet controlled Pt is motivated, working on diet modifications. Reports feeling good, trying different recipes looking forward to starting to exercise- finding info regarding gym-insurance coverage meal B:coffee with milk and no sugar, yogurt and cereal L: fruit and crackers, water dinner: largest meal pasta/peas/beef/water snack on piece of bryan/yogurt BS Monitoring Most Recent Diabetes Results: Cholesterol Pending 07/19/24 HDL Cholesterol Pending 07/19/24 Triglycerides Pending 07/19/24 Creatinine Pending 07/19/24 Blood Urea Nitrogen Pending 07/19/24 Sodium Pending 07/19/24 Potassium Pending 07/19/24 Chloride Pending 07/19/24 Carbon Dioxide Pending 07/19/24 Calcium Pending 07/19/24 AST Pending 07/19/24 ALT Pending 07/19/24 Total Protein Pending 07/19/24 Albumin Pending 07/19/24 [facility] Medical History (Updated 06/21/24 @ 09:35 by Ray Tolentino [facility]) Venous reflux YULY (obstructive sleep apnea) Skin tags, multiple acquired PAC (premature atrial contraction) Toe pain, right Hypothyroidism Hyperglycemia Hyperlipemia Palpitations HTN (hypertension) Esophageal hernia Anxiety Surgical History H/O colonoscopy History of hysteroscopy Family History Father Hyperlipidemia Stroke Mother HTN (hypertension) Hyperlipidemia Stroke Brother Melanoma Daughter No problems noted. Daughter No problems noted. Social History Housing: House Alcohol intake: never Patient Tobacco Use Status: Never used Tobacco e-Cigarette/Vaping Use: Never Used Second Hand Smoke Exposure: No service: No Current occupational status: other Cognitive needs: No Hearing needs: No Vision needs: No Female Reproductive History Menstrual Age of Menarche: 12 Assessment & Plan Assessment & Plan (1) Diabetes: Code(s): E11.9 - Type 2 diabetes mellitus without complications Category: Medical Plan: Wt: 69 Kg ( 05/2024 ), 65.4 kg (07/18) Est kcal needs as per MSJ: 2261-3510 (40% carb, 30% protein/fat) Est fluid needs as per 25-30 ml/d: 2100 Est prot per day as per 1 g/kg bw: 69 Recommend fiber intake : 8-10 g per day and gradually increase to 25-28 g per day for women and 35-38 g for men or as tolerated Recommend sodium intake per day : less than 2000 mg Educated patient on: ( R = reviewed V = verbalizes understanding N/R = needs review N/A = not applicable * Food sources of carbohydrate, adequate serving sizes and its role in various health conditions: R * Differences between complex carbohydrates a simple carbohydrates, role of fiber in diet: R * Lean protein sources of foods: R * Differences between types of fats and role in diet (mono on saturated fat fatty acids, saturated fatty acids, trans fats): R V N/R * Food sources of sodium in salt and healthy modifications for heart health in kidney health: R V R/V * Vitamins and minerals: R V N/R * Healthy plate method concept: R * Physical activity: Benefits a precaution: R * Hypoglycemia protocol (rule of 15): R V N/R * Dietary prevention of Hyperglycemia: R Patient Instructions: Engage in physical activity even if 10 minutes to start Include some protein foods in lunch and continue working on modifications in portions at dinner time Monitor your blood sugar 2hours after supper for self asessment. Coding Level of Care Code Nutr Indiv Subseq (22677) Diagnoses Diabetes E11.9 Time Spent (min) 30
== END 2024-07-19 09:09 | disposition home or self-care (01) ==
PROVIDERS: PCP Nurse Practitioner Family; Visit Provider Dietitian, Registered
DX: E11.9 Type 2 diabetes mellitus without complications (principal)

== ENCOUNTER 2024-08-08 08:13 | Outpatient (AMB) | payer OTHER, SELFPAY ==
--- NOTE | 2024-08-08 08:15 | A.OFFPC_ITS ---
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 Required: No Accompanied by: Self / Same As Patient Allergies hydrochlorothiazide Allergy (Unknown, Verified 08/08/24 08:33) unknown lisinopril Allergy (Unknown, Verified 08/08/24 08:33) unknown procaine [From NOVOCAIN] Allergy (Unknown, Verified 08/08/24 08:33) UNKNOWN atorvastatin Adverse Reaction (Unknown, Verified 08/08/24 08:33) myalgias hydromorphone [Dilaudid] Adverse Reaction (Unknown, Verified 08/08/24 08:33) lightheaded, dizziness seasonal Allergy (Unknown, Uncoded 08/08/24 08:33) unknown Medication List - Last Reconciled 08/08/24 by LIZBETH Godinez alcohol swabs (Alcohol Prep Pads) 1 pad topical TID 30 days atorvastatin 40 mg PO DAILY blood sugar diagnostic (FreeStyle Lite Strips) tid testing blood-glucose meter (FreeStyle Lite Meter kit) tid testing buspirone 15 mg PO BID diltiazem HCl CD 120 mg PO DAILY famotidine 40 mg PO BID fluticasone propionate 50 mcg/actuation (Children's Flonase Allergy Relief) 1 spray intranasal BID lancets (FreeStyle Lancets) tid testing lorazepam 1 mg PO before flying PRN; 3 days losartan 50 mg PO DAILY 90 days magnesium oxide 400 mg PO DAILY 90 days sertraline 75 mg (1.5 x 50 mg) PO DAILY 90 days spironolactone 25 mg PO DAILY Tobacco use date assessed: 05/09/24 Dental Screening Dental Screen Date: 05/09/24 HPI Annual PE HPI Details Pt is here for a PE. Will order labs. 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 Cologuard is up to date. Due for mammo next month, pt will schedule this. Pt is a diabetic, on an ARB and a statin. Last A1C was 7.0. Microalbumin is up to date. Denies polyuria, polydipsia, and neuropathy. Pt denies any signs and symptoms of hypoglycemia and does know how to correct it. Will start jardiance 10mg. Eye exam is up to date. Pt follows up with cardiology. Depression: Pt does not want a therapist. Denies any SI and HI. Pt reports doing very well overall. [facility] Medical History Venous reflux YULY (obstructive sleep apnea) Skin tags, multiple acquired PAC (premature atrial contraction) Toe pain, right Hypothyroidism Hyperglycemia Hyperlipemia Palpitations HTN (hypertension) Esophageal hernia Anxiety Surgical History H/O colonoscopy History of hysteroscopy Family History Father Hyperlipidemia Stroke Mother HTN (hypertension) Hyperlipidemia Stroke Brother Melanoma Daughter No problems noted. Daughter No problems noted. Social History Housing: House Alcohol intake: never Patient Tobacco Use Status: Never used Tobacco e-Cigarette/Vaping Use: Never Used Second Hand Smoke Exposure: No service: No Current occupational status: other Cognitive needs: No Hearing needs: No Vision needs: No Female Reproductive History Menstrual Age of Menarche: 12 Questionnaire PHQ-9 Over the last 2 weeks, how often have you been bothered by any of the following problems? 1. Little interest or pleasure in doing things: several days 2. Feeling down, depressed, or hopeless: several days 3. Trouble falling or staying asleep, or sleeping too much: nearly every day 4. Feeling tired or having little energy: several days 5. Poor appetite or overeating: not at all 6. Feeling bad about yourself - or that you are a failure or have let yourself or your family down: several days 7. Trouble concentrating on things, such as reading the newspaper or watching television: nearly every day 8. Moving or speaking so slowly that other people could have noticed. Or the opposite - being so fidgety or restless that you have been moving around a lot more than usual: not at all 9. Thoughts that you would be better off or of hurting yourself in some way: not at all Total score: 10 Depression Screening Interpretation: Positive (denies any SI or HI) Depression Screening Follow-up: Existing condition and Declines treatment Depression Screening Done: Yes 04193 - PHQ-9 Billing: Yes Source: Developed by Drs. Kali Meneses, Melisa Cha, Yaron Chao and colleagues, with an educational joshua from [employer]. Thrive Questionnaire Date Thrive assessed: 08/08/24 I am a: Patient What is your living situation today?: I have a steady place to live Within the past 12 months, did the food you bought not last and you didn't have the money to get more?: I choose not to answer this question Within the past 12 months, did you worry whether your food would run out before you got money to buy more?: Sometimes True Do you have trouble paying for medicines?: I choose not to answer this question Do you have trouble getting transportation to medical appointments?: No Do you have trouble paying your heating and electricity bill?: Yes Do you have trouble taking care of your child, family member or friend?: No Do you have trouble with day-to-day activities such as bathing, preparing meals, shopping, managing finances, etc.?: No Are you currently unemployed and looking for a job?: Yes Are you interested in more education?: Yes Please select the resources that you would like help with: Utilities Currently or been in a relationship where the following occur: No concerns reported THRIVE Score: 2 AUDIT C Alcohol Use Questionnaire (AUDIT-C) 1. How often do you have a drink containing alcohol?: Monthly or less 2. How many drinks containing alcohol do you have on a typical day when you are drinking?: 1 or 2 3. How often do you have six or more drinks on one occasion?: Never Total Score: 1 Score Reviewed/Action Taken: Yes DEJA-7 AMB Questionnaire DEJA-7 Date DEJA - 7 assessed: 08/08/24 Feeling nervous, anxious, or on edge: 1 = Several days Not being able to stop or control worryin = Several days Worrying too much about different things: 1 = Several days Trouble relaxin = Several days Being so restless that it is hard to sit still: 0 = Not at all Becoming easily annoyed or irritable: 2 = More than half the days Feeling afraid as if something awful might happen: 1 = Several days Total DEJA-7 score (0-4 normal; 5-9 mild; 10-14 moderate; 15-21 severe): 7 Source: Developed by Drs. Kali Meneses, Melisa Cha, Yaron Chao and colleagues, with an educational joshua from [employer]. DEJA-7 Assessment Billing DEJA-7 Assessment Tool: DEJA-7 Assessment 51415 Review of Systems Const Denies chills and Denies fever(s) Eyes Denies blurry vision ENT Denies vertigo, Denies dizziness and Denies sore throat Card Denies chest pain at rest, Denies chest pain with activity, Denies diaphoresis, Denies dyspnea and Denies dyspnea on exertion Resp Denies cough, Denies dyspnea, Denies dyspnea on exertion and Denies wheezing GI Denies abdominal pain, Denies melena, Denies hematochezia, Denies constipation, Denies diarrhea and Denies loose stools Denies hematuria Musc Denies numbness and Denies tingling Skin/Breast Denies lesions Neuro Denies vertigo, Denies dizziness, Denies numbness and Denies tingling Psych Denies anxiety, Denies depression, Denies homicidal ideation, Denies suicidal ideation and Denies other (substance abuse) Aller/Immun Denies wheezing Physical exam (Primary Care) Vital Signs: Last Vital Signs Pulse 73 08/08/24 08:17 BP 102/68 08/08/24 08:17 Pulse Ox 98 08/08/24 08:17 Oxygen Delivery Method Room Air 08/08/24 08:17 BMI result Body Mass Index 27.4 Tobacco/Smoking Status: Tobacco use Status Tobacco use date assessed 05/09/24 08/08/24 08:19 Patient Tobacco Use Status Never used Tobacco 08/08/24 08:19 e-Cigarette/Vaping Use Never Used 08/08/24 08:19 PHQ-9: PHQ-9 Score PHQ-9: Total score 08/08/24 08:56 Depression Screening Interpretation: Positive (denies any SI or HI) Depression Screening Follow-up: Existing condition and Declines treatment Thrive Assessment: Date of Thrive Assessment Date Thrive assessed 08/08/24 08/08/24 08:19 Currently or been in a relationship where the following occur: No concerns reported Const General: cooperative Nutritional Appearance: well nourished Orientation/consciousness: patient oriented x3 HENMT Head: Yes normal to inspection, Yes normocephalic and Yes atraumatic Ears: TM's normal bilaterally Eyes General: appearance normal, both eyes and all related structures Alignment and Position: alignment normal and position normal Neck Neck: Yes normal visual inspection, Yes no lymphadenopathy and Yes supple Resp Effort & Inspection: normal respiratory effort Auscultation: clear to auscultation bilaterally Cardio Rate: regular rate Rhythm: regular rhythm Heart sounds: S1 normal heart sound present, S2 normal heart sound present and Murmur heart sound present systolic (faint) GI Palpation (GI): Soft to palpation and nontender Auscultation: normal bowel sounds Skin Rashes: no rashes Neuro General: patient oriented x3, moves all extremities, no focal motor deficits and deep tendon reflexes 2+ bilaterally Romberg Test: Negative Extrem Other: bilat feet: + sensation with use of monofilament, feet intact Psych Appearance: grossly normal Mental Status: mental status grossly normal Speech and movement: Normal speech and movement present Affect: normal affect Attitude: cooperative Thought process: Normal thought process present Thought content: Normal thought content present Insight: Good insight present (Psych) Judgement: Good judgement present (Psych) Immunizations pneumoc 20-shana conj-dip cr(PF) 0.5 mL IM syringe Performing Provider: LIZBETH Godinez [place] [facility] [place] [facility] Administered by: Quincy Walden CMA on 08/08/24 08:56 Dose Route Admin Location Dispensed Lot Number Expiration Date [facility] [employer] 0.5 mL IM Left Deltoid 0.5 mL [id number] 10/13/25 [facility] VIS Given Date VIS Provided VIS Publication Date 08/08/24 Single Vaccine 21 Eligibility Eligibility Date Funding Source Not [facility] Eligible 08/08/24 Private Coding Level of Care Code Est Pt Prev Care 40-64y(62065) Diagnoses Physical exam Z00.00 Vitamin D deficiency E55.9 Diabetes E11.9 Additional Codes DEJA-7 Assessment Billing - DEJA-7 Assessment Tool: DEJA-7 Assessment 92465 ([id number]) Assessment & Plan Assessment & Plan (1) Physical exam: Code(s): Z00.00 - Encounter for general adult medical examination without abnormal findings Category: Medical Plan: Labs ordered (2) Vitamin D deficiency: Code(s): E55.9 - Vitamin D deficiency, unspecified Category: Medical Plan: Vitamin D ordered (3) Diabetes: Code(s): E11.9 - Type 2 diabetes mellitus without complications Category: Medical Plan The patient agreed to the use of a medical or surgical instrument maker for this encounter. Scribed for SERENITY Lutz-JOSE MIGUEL by Cassie Pulido medical or surgical instrument maker, on 08/08/2024 at 08:35 EST. Orders: Orders TSH reflex Free T4 Today Z00.00 - Encounter for general adult medical examination without abnormal findings UA CC w/rflx Micro + Cult Today Z00.00 - Encounter for general adult medical examination without abnormal findings Lipid Panel Today Z00.00 - Encounter for general adult medical examination without abnormal findings Complete Blood Count Auto Diff Today Z00.00 - Encounter for general adult medical examination without abnormal findings Comprehensive [place]. Panel Fast Today Z00.00 - Encounter for general adult medical examination without abnormal findings Vitamin D 25-OH Total Today E55.9 - Vitamin D deficiency, unspecified Pneumococcal 20 Immunization Today Z23 - Encounter for immunization Medications: New empagliflozin (Jardiance) 10 mg PO DAILY 30 tabs 3RF
[2024-08-08 08:17] VITALS: BP 102/68; PULSE 73; O2SAT 98; BMI 27.4
== END 2024-08-08 09:46 | disposition home or self-care (01) ==
PROVIDERS: PCP Nurse Practitioner Family; Visit Provider Nurse Practitioner Family
DX: Z00.00 Encounter for general adult medical examination without abnormal findings (principal); E55.9 Vitamin D deficiency, unspecified; E11.9 Type 2 diabetes mellitus without complications; Z23 Encounter for immunization

== ENCOUNTER → 2024-08-08 08:13 | Outpatient (BNVA) | payer OTHER, SELFPAY | PROVIDERS: PCP Nurse Practitioner Family; Visit Provider Nurse Practitioner Family | DX: Z00.00 Encounter for general adult medical examination without abnormal findings (principal); Z23 Encounter for immunization; E11.9 Type 2 diabetes mellitus without complications; E55.9 Vitamin D deficiency, unspecified | CPT/HCPCS: 90471; 90677; 96127; 99396 ==

== ENCOUNTER 2024-10-16 14:10 | Outpatient (AMB) | payer OTHER, SELFPAY ==
--- NOTE | 2024-10-16 14:16 | MHC.OFFVIS ---
Vital Signs 10/16/24 14:17 Height 5 ft 1 in Weight 145 lb 8.081 oz BMI 27.5 BP 120/68 Blood Pressure Location Lt brachial Position Sitting Pulse 82 Pulse Source Monitor Intake Visit Reasons: Med review Allergies hydrochlorothiazide Allergy (Unknown, Verified 08/08/24 08:33) unknown lisinopril Allergy (Unknown, Verified 08/08/24 08:33) unknown procaine [From NOVOCAIN] Allergy (Unknown, Verified 08/08/24 08:33) UNKNOWN atorvastatin Adverse Reaction (Unknown, Verified 08/08/24 08:33) myalgias hydromorphone [Dilaudid] Adverse Reaction (Unknown, Verified 08/08/24 08:33) lightheaded, dizziness seasonal Allergy (Unknown, Uncoded 08/08/24 08:33) unknown Medication List - Last Reconciled 10/16/24 by Jc Dangelo MD atorvastatin 40 mg PO DAILY blood sugar diagnostic (FreeStyle Lite Strips) tid testing blood-glucose meter (FreeStyle Lite Meter kit) tid testing buspirone 15 mg PO BID diltiazem HCl CD 120 mg PO DAILY empagliflozin (Jardiance) 10 mg PO DAILY esomeprazole magnesium 40 mg PO DAILY lancets (FreeStyle Lancets) tid testing lorazepam 1 mg PO before flying PRN; 3 days losartan 50 mg PO DAILY 90 days sertraline 75 mg (1.5 x 50 mg) PO DAILY 90 days spironolactone 12.5 mg PO DAILY HPI Comments Details: Angelica returns for follow-up. History of hypertension and premature atrial contractions. She used to have markedly high PAC burden. Then she was put on Diltiazem. Also diagnosed to have mild obstructive sleep apnea, but unable to tolerate CPAP. Apparently, he has been having some low blood pressure issues and dizziness. After that, spironolactone dose has been cut back. Otherwise, she states she feels fine. No other specific cardiac concerns. [facility] Medical History Venous reflux YULY (obstructive sleep apnea) Skin tags, multiple acquired PAC (premature atrial contraction) Toe pain, right Hypothyroidism Hyperglycemia Hyperlipemia Palpitations HTN (hypertension) Esophageal hernia Anxiety Surgical History H/O colonoscopy History of hysteroscopy Family History Father Hyperlipidemia Stroke Mother HTN (hypertension) Hyperlipidemia Stroke Brother Melanoma Daughter No problems noted. Daughter No problems noted. Social History Housing: House Alcohol intake: never Patient Tobacco Use Status: Never used Tobacco e-Cigarette/Vaping Use: Never Used Second Hand Smoke Exposure: No service: No Current occupational status: other Cognitive needs: No Hearing needs: No Vision needs: No Female Reproductive History Menstrual Age of Menarche: 12 Review of Systems Const Denies weakness ENT Denies dizziness Card Denies chest pain, Denies chest pain with activity, Denies syncope, Denies rapid heart rate, Denies pedal edema, Denies edema, Denies leg edema, Denies lightheadedness, Denies palpitations, Denies dyspnea, Denies dyspnea on exertion and Denies orthopnea Resp Denies cough, Denies dyspnea and Denies dyspnea on exertion GI Denies hematochezia and Denies change in stool character Musc Denies abnormal gait, Denies muscle cramps, Denies muscle weakness, Denies numbness, Denies radiating pain into limb and Denies tingling Neuro Denies abnormal gait, Denies dizziness, Denies syncope, Denies numbness, Denies tingling and Denies weakness Endo Denies palpitations Physical Exam Vital Signs: Last Vital Signs Pulse 82 10/16/24 14:17 BP 120/68 10/16/24 14:17 BMI result Body Mass Index 27.5 Const General: comfortable and no acute distress Orientation/consciousness: patient oriented x3 HEENT Other: Unremarkable Head: Yes normal to inspection Neck Neck: Yes normal visual inspection Chest Chest palpation & inspection: normal inspection of the chest Resp Auscultation: clear to auscultation bilaterally Cardio Palpation: normal PMI Heart sounds: S1 normal heart sound present, S2 normal heart sound present, no gallops, no murmurs and no rubs GI Palpation (GI): Soft to palpation Back/Spine/Pelvis Other: unremarkable Skin General skin exam: no rashes or lesions noted Neuro General: patient oriented x3 Extrem General: Yes normal to inspection Psych Mental Status: mental status grossly normal Office Procedures EKG Details: EKG with underlying sinus rhythm at 82/Min; rightward axis; cannot exclude old anterior infarct, but more likely from body habitus; [place] [id number], Complete Assessment & Plan Assessment & Plan (1) PAC (premature atrial contraction): Code(s): I49.1 - Atrial premature depolarization Category: Medical Plan: Stable. Continue Diltiazem. (2) Essential hypertension: Code(s): I10 - Essential (primary) hypertension Category: Medical Plan: On Losartan, Spironolactone. Due to low blood pressure issues, stop Spironolactone. (3) YULY (obstructive sleep apnea): Code(s): G47.33 - Obstructive sleep apnea (adult) (pediatric) Category: Medical Plan: Sleep study from 2019 showed mild sleep apnea. Unable to use. Has tried several times. (4) Mixed hyperlipidemia: Code(s): E78.2 - Mixed hyperlipidemia Category: Medical Plan: Her LDL was as much as 177 mg/dL. On statins. Last LDL 76 mg/dL. Coding Level of Care Code Est Pt Level 4 (33012) Diagnoses PAC (premature atrial contraction) I49.1 Essential hypertension I10 YULY (obstructive sleep apnea) G47.33 Mixed hyperlipidemia E78.2 CPT Codes EKG - CPT: 30597-Pojlraxpopjcpcmht, Complete ([id number])
[2024-10-16 14:17] VITALS: BP 120/68; PULSE 82; BMI 27.5
== END 2024-10-16 14:41 | disposition home or self-care (01) ==
PROVIDERS: PCP Nurse Practitioner Family; Visit Provider Internal Medicine
DX: I49.1 Atrial premature depolarization (principal); I10 Essential (primary) hypertension; G47.33 Obstructive sleep apnea (adult) (pediatric); E78.2 Mixed hyperlipidemia
CPT/HCPCS: 93010; 99214

== ENCOUNTER → 2024-10-16 14:10 | Outpatient (BNVA) | payer OTHER, SELFPAY | PROVIDERS: PCP Nurse Practitioner Family; Visit Provider Internal Medicine | DX: I49.1 Atrial premature depolarization (principal); I10 Essential (primary) hypertension; G47.33 Obstructive sleep apnea (adult) (pediatric); E78.2 Mixed hyperlipidemia; R94.31 Abnormal electrocardiogram [ECG] [EKG] | CPT/HCPCS: 93005; 99212 ==

== ENCOUNTER 2025-01-13 08:46 | Outpatient (REF) | payer OTHER, SELFPAY ==
[2025-01-13 09:04] LABS: MANUAL DIFF FLAG NO
[2025-01-13 10:13] LABS: Basophils Percent Auto 0.5 % (0-2); Eosinophils Absolute Auto 0.3 X10*3/uL (0.0-0.4); Eosinophils Percent Auto 3.6 % (0-4); Hematocrit 40.1 % (37.0-47.0); Hemoglobin 12.9 g/dl (12.0-16.0); Imm Gran Abs Auto 0.04 X10*3/uL (0.00-0.03); Imm Gran Pct Auto 0.5 % (0.0-0.4); Lymphocytes Absolute Auto 1.8 X10*3/uL (1.2-4.9); Mean Corpuscular HGB Conc 32.2 g/dl (31.0-35.0); Mean Corpuscular Hemoglobin 28.9 pg (27.0-33.0); Mean Corpuscular Volume 89.9 fL (80.0-98.0); Mean Platelet Volume 9.9 fL (9.4-12.3); Monocytes Percent Auto 11.7 % (2-11); Neutrophils Absolute Auto 5.3 x10*3/uL (2.0-8.3); Neutrophils Percent Auto 62.7 % (45-73); Platelet Count 225 X10*3/uL (160-400); Red Blood Count 4.46 X10*6/uL (4.20-5.50); Red Cell Distribution Width 13.8 % (11.0-16.0); White Blood Count 8.4 X10*3/uL (4.8-10.8)
[2025-01-13 10:28] LABS: Appearance Urine Clear; Color Urine Yellow; Glucose Urine UA Negative (Negative); Leukocyte Esterase Urine Trace (Negative); Nitrite Urine Negative (Negative); Specific Gravity - Urine 1.015 (1.005-1.025); UMIC TRIGGER UACC YES; Urine Blood Small (1+) (Negative); Urine Ketones Negative (Negative); Urine Protein Negative (Neg-Trace)
[2025-01-13 10:31] LABS: Estimated Average Glucose 157 mg/dL; Hemoglobin A1c % 7.1 % (<6.0); Total Hemoglobin (HGBA1C) 3381.4904 umol/L
[2025-01-13 10:35] LABS: Bacteria Urine None Seen (None Seen); Hyaline Casts Urine 0-2 /LPF (0-2); Squamous Epithelial Cell Urine 0-2 /HPF (0-2); WBC Urine 0-5 /HPF (0-5)
[2025-01-13 11:03] LABS: Alanine Aminotransferase 34 U/L (0-31); Albumin Level 4.3 g/dL (3.5-5.0); Alkaline Phosphatase 118 U/L (39-117); Anion Gap 13 (12-20); Aspartate Amino Transferase 28 U/L (5-31); Bilirubin Total 0.3 mg/dL (0.0-1.0); Blood Urea Nitrogen 13 mg/dL (9-16); Calcium 9.1 mg/dL (8.4-10.2); Carbon Dioxide 26 mmol/L (22-29); Chloride 101 mmol/L (96-108); Cholesterol 146 mg/dL (<200); Estimated Glomerular Filt Rate > 60; Glucose Fasting 124 mg/dL (60-99); HDL Cholesterol 44 mg/dL (>40); LDL Cholesterol Calculated 73 mg/dL (<100); Potassium 4.3 mmol/L (3.3-5.1); Sodium 136 mmol/L (135-145); Total Protein 7.8 g/dL (6.5-8.0); Triglycerides 149 mg/dL (<150)
[2025-01-13 11:23] LABS: Vitamin D 25-OH Total 33.9 ng/mL (>30)
[2025-01-13 12:50] LABS: Free T4 (Free Thyroxine) 0.73 ng/dL (0.71-1.85)
== END 2025-01-13 08:47 | disposition home or self-care (01) ==
LOC: HO.LAB 08:46
PROVIDERS: PCP Nurse Practitioner Family; Visit Provider Nurse Practitioner Family
DX: Z00.00 Encounter for general adult medical examination without abnormal findings (principal); E11.9 Type 2 diabetes mellitus without complications; E55.9 Vitamin D deficiency, unspecified
CPT/HCPCS: 36415; 80053; 80061; 81001; 81003; 82306; 83036; 84439; 84443; 85025

== ENCOUNTER 2025-01-17 07:50 | Outpatient (AMB) | payer OTHER, SELFPAY ==
--- OUTSIDE RECORDS SUMMARY | 2025-01-17 07:53 | XMS_ITS | Encounter Summary ---
Author Organization [employer] Address [address] [place] [address] Care Team Providers Care Physical Therapy Coordinator Name Role Phone Unavailable Primary Care Provider Unavailabl e Encounter Details Date Type Department Care Team (Latest Contact Info) Description 09/11/2019 Abstract [facility] CONVERSIONS Dental, Provider, DDS Social History Tobacco Use Types Packs/Day Years Used Date Smoking Tobacco: Never Assessed Comments Unknown Sex and Gender Information Value Date Recorded Sex Assigned at Female 08/24/2022 10:15 AM EDT Legal Sex Female 10:15 AM EDT Gender Identity Female 08/24/2022 10:15 AM EDT Sexual Orientation Straight 08/24/2022 10 :15 AM EDT documented as of this encounter Plan of Treatment Not on file documented as of this encounter Visit Diagnoses Not on filedocumented in this encounter
--- OUTSIDE RECORDS SUMMARY | 2025-01-17 07:53 | XMS_ITS | Clinical Summary ---
Author Organization [employer] Address [address] [place] [address] 7[address] [place] [address] Care Team Providers Care Stage Setting Painter Apprentice Name Role Phone Unavailable Primary Care Provider Unavailabl e Social History Tobacco Use Types Packs/Day Years Used Date Smoking Tobacco: Never Assessed Comments Unknown Sex and Gender Information Value Date Recorded Sex Assigned at Female 08/24/2022 10:15 AM EDT Legal Sex Female 10:15 AM EDT Gender Identity Female 08/24/2022 10:15 AM EDT Sexual Orientation Straight 08/24/2022 10 :15 AM EDT Plan of Treatment Health Maintenance Due Date Last Done Comments CT Colonography 1965 Colonoscopy 1965 Colorectal Cancer Screening 1965 Depression Screening 1965 FIT DNA/Cologuard 1965 FIT 1965 FOBT 1965 Sigmoidoscopy 1965 Alcohol/Substance Use Screening 1977 Tobacco Screening 1977 DTaP/Tdap/Td Vaccines (1 - Tdap) 01/23/1984 Hepatitis B Vaccines (1 of 3 - 19+ 3-dose series) 01/23/1984 Pap Smear 1986 Cervical Cancer Screening 1995 HPV/Cotest 1995 Mammogram 2005 Pneumococcal Vaccine: 50+ Ye ars (1 of 1 - PCV) 2015 Zoster Vaccines (1 of 2) 2015 COVID-19 Vaccine ( - 2023-2 5 season) 2024 Influenza Vaccine (#1) 2024 RSV Patients and Pa tients Aged 60 years or older (1 - 1-dose 75+ series) 01/23/2040 HIB Vaccines Aged Out No longer eligi ble based on patient's age to complete this topic HPV Vaccines Aged Out No longer eligi ble based on patient's age to complete this topic Hepatitis A Vaccines Aged Out No long er eligible based on patient's age to complete this topic IPV Vaccines Aged Out No longer eligi ble based on patient's age to complete this topic Meningococcal Vaccine Aged Out No ambrocio parag eligible based on patient's age to complete this topic Pneumococcal Vaccine: Pediat rics (0 to 5 Years) and At-Risk Patients (6 to 49) Years) Aged Out No longer eligible b ased on patient's age to complete this topic RSV under 20 months Aged Out No longe r eligible based on patient's age to complete this topic Rotavirus Vaccines Aged Out No longer eligible based on patient's age to complete this topic
[2025-01-17 08:00] VITALS: BP 120/70; PULSE 73; TEMP 36.7; O2SAT 98; BMI 27.8
--- NOTE | 2025-01-17 08:00 | MHC.PC.OV ---
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 Required: No Accompanied by: Self / Same As Patient Allergies hydrochlorothiazide Allergy (Unknown, Verified 01/17/25 08:53) unknown lisinopril Allergy (Unknown, Verified 01/17/25 08:53) unknown procaine [From NOVOCAIN] Allergy (Unknown, Verified 01/17/25 08:53) UNKNOWN atorvastatin Adverse Reaction (Unknown, Verified 01/17/25 08:53) myalgias hydromorphone [Dilaudid] Adverse Reaction (Unknown, Verified 01/17/25 08:53) lightheaded, dizziness seasonal Allergy (Unknown, Uncoded 01/17/25 08:53) unknown Medication List - Last Reconciled 01/17/25 by SERENITY Godinez- atorvastatin 40 mg PO DAILY blood sugar diagnostic (FreeStyle Lite Strips) tid testing blood-glucose meter (FreeStyle Lite Meter kit) tid testing buspirone 15 mg PO BID diltiazem HCl CD 120 mg PO DAILY empagliflozin (Jardiance) 10 mg PO DAILY esomeprazole magnesium 40 mg PO DAILY lancets (FreeStyle Lancets) tid testing lorazepam 1 mg PO before flying PRN; 3 days losartan 50 mg PO DAILY 90 days sertraline 75 mg (1.5 x 50 mg) PO DAILY 90 days spironolactone 25 mg PO DAILY Tobacco use date assessed: 01/17/25 Dental Screening Dental Screen Date: 01/17/25 Did you have a dental visit in the last 12 months?: Yes Did you have a dental problem in the last 6 months where you did not have access to dental care?: No Was dental information given to patient?: Patient has dentist HPI 6m follow up HPI Details Chief Complaint Follow-up for diabetes and ongoing respiratory symptoms. History of Present Illness The patient is a 59-year-old female presenting with a follow-up regarding type 2 diabetes mellitus management and evaluation of respiratory symptoms. There is a noted issue of non-compliance with her diabetes medication, specifically her failure to take Jardiance, leading to a hemoglobin A1c level of 7.1%. She has also presented with a respiratory illness, having experienced symptoms of a cold for three weeks, likely exacerbated by recent travel. Symptoms include sore throat, sporadic fevers, and chills, with current examination revealing erythema and mild swelling of the tonsils. Social History - Recent travel which may have contributed to the respiratory illness. Health Maintenance - Hemoglobin A1c was noted at 7.1%. Review of Systems - Respiratory: Reports sore throat. Denies current fever. denies any cp or sob or wheezing - Immune: Reports chills and has had fevers in the past. -denies neuropathy Physical Exam General: Cooperative, healthy appearing, comfortable, no acute distress and well developed Orientation: Patient oriented x3 Limitations: No limitations Head: Normal to inspection Ears: Hearing grossly normal bilaterally Nose: Normal external nose present Face and sinus: Normal facial exam Eyes: Appearance normal, both eyes and all related structures Neck: Tonsils and post pharynx slightly erythematous and swollen, no lymphadenopathy noted, ? slightly enlarged thyroid Respiratory: Normal respiratory effort and able to speak in complete sentences. Clear to auscultation bilaterally Cardiovascular: Regular rate and rhythm. Normal S1 and S2 GI: Normal to inspection. Soft to palpation and nontender Skin: No rashes or lesions noted Neuro: Patient oriented x3 Extremities: Good sensation of feet bilaterally with use of monofilament, normal to inspection Results - Labs: Hemoglobin A1c 7.1%. Plan Due to her persistent respiratory symptoms, a strep culture and respiratory panel will be performed. After addressing her respiratory condition, thyroid dysfunction will be re-evaluated to ensure comprehensive management.: Discussion Notes I explained to the patient the necessity of adhering to her diabetes treatment with Jardiance to control her elevated A1c levels. The potential respiratory infection warranted further assessment with a strep culture and a respiratory panel to identify causative pathogens. We discussed that re-evaluation of thyroid function would occur once her respiratory symptoms stabilize, emphasizing a stepwise approach to her care. The patient was informed of the benefits of treating her diabetes promptly, as well as the importance of diagnosing and managing any respiratory or thyroid-related conditions as they arise. Patient Instructions - Begin taking Jardiance 10 mg as previously prescribed. - Report any worsening of respiratory symptoms or the onset of new symptoms immediately. - Undergo the planned strep culture and respiratory panel tests. - Follow up for thyroid function evaluation after respiratory symptoms are resolved. - Maintain good hydration and rest to support recovery from the current respiratory symptoms. [facility] Medical History Venous reflux YULY (obstructive sleep apnea) Skin tags, multiple acquired PAC (premature atrial contraction) Toe pain, right Hypothyroidism Hyperglycemia Hyperlipemia Palpitations HTN (hypertension) Esophageal hernia Anxiety Surgical History H/O colonoscopy History of hysteroscopy Family History Father Hyperlipidemia Stroke Mother HTN (hypertension) Hyperlipidemia Stroke Brother Melanoma Daughter No problems noted. Daughter No problems noted. Social History Housing: House Alcohol intake: never Patient Tobacco Use Status: Never used Tobacco e-Cigarette/Vaping Use: Never Used Second Hand Smoke Exposure: No service: No Current occupational status: other Cognitive needs: No Hearing needs: No Vision needs: No Female Reproductive History Menstrual Age of Menarche: 12 Questionnaire PHQ-9 Over the last 2 weeks, how often have you been bothered by any of the following problems? 1. Little interest or pleasure in doing things: not at all 2. Feeling down, depressed, or hopeless: not at all 3. Trouble falling or staying asleep, or sleeping too much: nearly every day 4. Feeling tired or having little energy: more than half the days 5. Poor appetite or overeating: not at all 6. Feeling bad about yourself - or that you are a failure or have let yourself or your family down: not at all 7. Trouble concentrating on things, such as reading the newspaper or watching television: not at all 8. Moving or speaking so slowly that other people could have noticed. Or the opposite - being so fidgety or restless that you have been moving around a lot more than usual: not at all 9. Thoughts that you would be better off or of hurting yourself in some way: not at all Total score: 5 Depression Screening Interpretation: Negative Depression Screening Done: Yes 89374 - PHQ-9 Billing: Yes Source: Developed by Drs. Kail Meneses, Melisa B.Yaron Galo and colleagues, with an educational joshua from [employer] Thrive Questionnaire Date Thrive assessed: 01/17/25 I am a: Patient What is your living situation today?: I have a steady place to live Within the past 12 months, did the food you bought not last and you didn't have the money to get more?: Never true Within the past 12 months, did you worry whether your food would run out before you got money to buy more?: Sometimes True Do you have trouble paying for medicines?: Yes Do you have trouble getting transportation to medical appointments?: No Do you have trouble paying your heating and electricity bill?: Yes Do you have trouble taking care of your child, family member or friend?: No Do you have trouble with day-to-day activities such as bathing, preparing meals, shopping, managing finances, etc.?: No Are you currently unemployed and looking for a job?: Yes Are you interested in more education?: Yes Please select the resources that you would like help with: Food, [employer] and Job search/training Currently or been in a relationship where the following occur: No concerns reported THRIVE Score: 2 AUDIT C Alcohol Use Questionnaire (AUDIT-C) 1. How often do you have a drink containing alcohol?: Never 3. How often do you have six or more drinks on one occasion?: Never Total Score: 0 Score Reviewed/Action Taken: Yes DEJA-7 AMB Questionnaire DEJA-7 Date DEJA - 7 assessed: 01/17/25 Feeling nervous, anxious, or on edge: 3 = Nearly every day Not being able to stop or control worryin = Nearly every day Worrying too much about different things: 3 = Nearly every day Trouble relaxin = Nearly every day Being so restless that it is hard to sit still: 3 = Nearly every day Becoming easily annoyed or irritable: 3 = Nearly every day Feeling afraid as if something awful might happen: 0 = Not at all Total DEJA-7 score (0-4 normal; 5-9 mild; 10-14 moderate; 15-21 severe): 18 Source: Developed by Drs. Kali Meneses, Yaron Walter and colleagues, with an educational joshua from [employer] DEJA-7 Assessment Billing DEJA-7 Assessment Tool: DEJA-7 Assessment 30450 Physical exam (Primary Care) Vital Signs: Last Vital Signs Temp 98.0 F 01/17/25 08:00 Pulse 73 01/17/25 08:00 BP 120/70 01/17/25 08:00 Pulse Ox 98 01/17/25 08:00 Oxygen Delivery Method Room Air 01/17/25 08:00 BMI result Body Mass Index 27.8 Tobacco/Smoking Status: Tobacco use Status Tobacco use date assessed 01/17/25 01/17/25 08:07 Patient Tobacco Use Status Never used Tobacco 01/17/25 08:02 e-Cigarette/Vaping Use Never Used 01/17/25 08:02 PHQ-9: PHQ-9 Score PHQ-9: Total score 5 01/17/25 08:07 Depression Screening Interpretation: Negative Thrive Assessment: Date of Thrive Assessment Date Thrive assessed 01/17/25 01/17/25 08:07 Currently or been in a relationship where the following occur: No concerns reported Results AMB Rapid Strep AMB Rapid Strep Negative Last Edit by Quincy Walden CMA on 01/17/25 08:56 Coding Level of Care Code Est Pt Level 4 (51998) Diagnoses Elevated TSH R79.89 Enlarged thyroid E04.9 Diabetes E11.9 Respiratory illness J98.9 Pharyngitis J02.9 Additional Codes DEJA-7 Assessment Billing - DEJA-7 Assessment Tool: DEJA-7 Assessment 47639 ([id number]) PHQ-9 - 51844 - PHQ-9 Billing: Yes ([id number]) Assessment & Plan Assessment & Plan (1) Elevated TSH: Code(s): R79.89 - Other specified abnormal findings of blood chemistry Category: Medical (2) Enlarged thyroid: Code(s): E04.9 - Nontoxic goiter, unspecified Category: Medical (3) Diabetes: Code(s): E11.9 - Type 2 diabetes mellitus without complications Category: Medical (4) Respiratory illness: Code(s): J98.9 - Respiratory disorder, unspecified Category: Medical (5) Pharyngitis: Code(s): J02.9 - Acute pharyngitis, unspecified Category: Medical Plan . Orders: Orders Resp Pathogen Panel - [facility] Today J06.9 - Acute upper respiratory infection, unspecified AMB Rapid Strep Screen Today Z13.9 - Encounter for screening, unspecified US thyroid Today E04.9 - Nontoxic goiter, unspecified, R79.89 - Other specified abnormal findings of blood chemistry Comprehensive Met. Panel Today E04.9 - Nontoxic goiter, unspecified, J98.9 - Respiratory disorder, unspecified, R79.89 - Other specified abnormal findings of blood chemistry TSH reflex Free T4 Today R79.89 - Other specified abnormal findings of blood chemistry Thyroid Peroxidase Antibodies Today R79.89 - Other specified abnormal findings of blood chemistry Medications: Refilled empagliflozin (Jardiance) 10 mg PO DAILY 30 tabs 3RF empagliflozin (Jardiance) 10 mg PO DAILY 30 tabs 3RF
== END 2025-01-17 09:25 | disposition home or self-care (01) ==
LOC: HO.HMCC 07:51
PROVIDERS: PCP Nurse Practitioner Family; Visit Provider Nurse Practitioner Family
DX: R79.89 Other specified abnormal findings of blood chemistry (principal); E04.9 Nontoxic goiter, unspecified; E11.9 Type 2 diabetes mellitus without complications; J98.9 Respiratory disorder, unspecified; J02.9 Acute pharyngitis, unspecified; Z13.9 Encounter for screening, unspecified

== ENCOUNTER 2025-01-17 07:50 | Outpatient (REF) | payer OTHER, SELFPAY ==
[2025-01-17 14:22] LABS: Adenovirus PCR Not Detected (Not Detect.); Bordetella parapertussis PCR Not Detected (Not Detect.); Bordetella pertussis PCR Not Detected (Not Detect.); Chlamydia pneumoniae PCR Not Detected (Not Detect.); Coronavirus 229E PCR Not Detected (Not Detect.); Coronavirus HKU1 PCR Not Detected (Not Detect.); Coronavirus NL63 PCR Not Detected (Not Detect.); Coronavirus OC43 PCR Not Detected (Not Detect.); Human metapneumovirus PCR Not Detected (Not Detect.); Influenza A PCR Not Detected (Not Detect.); Influenza B PCR Detected (Not Detect.); Mycoplasma pneumoniae PCR Not Detected (Not Detect.); Parainfluenza 1 PCR Not Detected (Not Detect.); Parainfluenza 2 PCR Not Detected (Not Detect.); Parainfluenza 3 PCR Not Detected (Not Detect.); Parainfluenza 4 PCR Not Detected (Not Detect.); RSV PCR Not Detected (Not Detect.); Rhino/Enterovirus PCR Not Detected (Not Detect.)
[2025-01-17 14:38] LABS: Influenza A H1 PCR Not Detected (Not Detect.); Influenza A H1-2009 PCR Not Detected (Not Detect.); Influenza A H3 PCR Not Detected (Not Detect.); SARS-CoV-2 PCR Not Detected (Not Detect.)
== END 2025-01-17 07:51 | disposition home or self-care (01) ==
LOC: HO.LNP 07:50
PROVIDERS: PCP Nurse Practitioner Family; Visit Provider Nurse Practitioner Family
DX: E11.9 Type 2 diabetes mellitus without complications (principal); R79.89 Other specified abnormal findings of blood chemistry; E04.9 Nontoxic goiter, unspecified; J98.9 Respiratory disorder, unspecified; J02.9 Acute pharyngitis, unspecified; J06.9 Acute upper respiratory infection, unspecified; Z91.148 Patient's other noncompliance with medication regimen for other reason
CPT/HCPCS: 87633; 87880; 96127; 99212

== ENCOUNTER 2025-01-29 13:02 | Outpatient (REF) | payer OTHER, SELFPAY ==
--- OUTSIDE RECORDS SUMMARY | 2025-01-29 15:28 | XMS_ITS | Clinical Summary ---
Author Organization [employer] Address [address] [place] [address] 7[address] [place] [address] Care Team Providers Care Award Machine Operator Name Role Phone Unavailable Primary Care Provider [...] 1977 DTaP/Tdap/Td Vaccines (1 - Tdap) 01/23/1984 Pap Smear 1986 Cervical Cancer Screening 1995 HPV/Cotest 1995 Mammogram 2005 Pneumococcal Vaccine: 50+ Ye ars (1 of 1 - PCV) 2015 Zoster Vaccines (1 of 2) 2015 COVID-19 Vaccine (2023-2 5 season) 2024 Influenza Vaccine (#1) 2024 [...] patient's age to complete this topic Hepatitis B Vaccines Aged Out No long er eligible [...]
--- OUTSIDE RECORDS SUMMARY | 2025-01-29 15:28 | XMS_ITS | Encounter Summary ---
Author Organization [employer] Address [address] [facility] 7t [place] [address] Care Team Providers Care Blanket Cutting Machine Operator Name Role Phone Unavailable Primary Care Provider Unavailabl e Encounter Details Date Type Department Care Team (Latest Contact Info) Description 09/11/2019 Abstract [facility] CONVERSIONS Dental, Provider, DDS Social History Tobacco [...]
[2025-01-29 19:05] LABS: Alanine Aminotransferase 19 U/L (0-31); Albumin Level 4.3 g/dL (3.5-5.0); Alkaline Phosphatase 107 U/L (39-117); Anion Gap 13 (12-20); Aspartate Amino Transferase 25 U/L (5-31); Bilirubin Total 0.4 mg/dL (0.0-1.0); Blood Urea Nitrogen 12 mg/dL (9-16); Calcium 9.7 mg/dL (8.4-10.2); Carbon Dioxide 26 mmol/L (22-29); Chloride 102 mmol/L (96-108); Estimated Glomerular Filt Rate > 60; Glucose Random 108 mg/dL (60-115); Potassium 4.3 mmol/L (3.3-5.1); Sodium 137 mmol/L (135-145); Total Protein 7.3 g/dL (6.5-8.0)
[2025-01-29 20:23] LABS: Free T4 (Free Thyroxine) 0.86 ng/dL (0.71-1.85)
[2025-01-30 19:08] LABS: Thyroid Peroxidase Antibodies 1 IU/mL (<9)
== END 2025-01-29 13:03 | disposition home or self-care (01) ==
LOC: HO.HMGCLDS 13:02
PROVIDERS: PCP Nurse Practitioner Family; Visit Provider Nurse Practitioner Family
DX: R79.89 Other specified abnormal findings of blood chemistry (principal); E04.9 Nontoxic goiter, unspecified; J98.9 Respiratory disorder, unspecified
CPT/HCPCS: 36415; 80053; 84439; 84443; 86376

== ENCOUNTER 2025-02-09 14:22 | Outpatient (REF) | payer OTHER, SELFPAY ==
--- NOTE | ~2025-02-09 | US_ITS ---
EXAMINATION: US THYROID HISTORY: R79.89 - elevated TSH TECHNIQUE: Real-time grayscale ultrasound imaging was performed and images were reviewed. COMPARISON: There are no prior studies for comparison. FINDINGS: SIZE: The right thyroid lobe measures 4.6 x 1.3 x 1.2 cm. The left thyroid lobe measures 4.6 x 0.8 x 1.4 cm. The isthmus measures 4 mm. FLOW: Flow to the gland is normal. ECHOGENICITY: The echotexture of the gland is normal. NODULES: There is a 6 x 4 x 5 mm spongiform nodule at the lower pole of the right thyroid lobe and a 4 mm spongiform nodule at the upper pole. There is a 3 mm cyst at the lower pole of the left thyroid lobe and additional 4 mm cyst at the lower pole. No solid nodules are identified. US/US thyroid IMPRESSION: Subcentimeter spongiform nodules and cysts as described above. No suspicious nodule is identified. ACR TI-RADS Guidelines TR1 (0 points): Benign, No follow-up or biopsy required TR2 (2 points): Not Suspicious, No biopsy or follow up indicated TR3 (3 points): Mildly Suspicious, FNA if >= 2.5 cm, Follow if >= 1.5 cm TR4 (4-6 points): Moderately Suspicious, FNA if >= 1.5 cm, Follow if >= 1.0 cm TR5 (>=7 points): Highly Suspicious, FNA if >= 1.0 cm, Follow if >= 0.5 cm Electronically signed by: Kali Gonzales MD 02/09/2025 03:21 PM EDT
--- OUTSIDE RECORDS SUMMARY | 2025-02-09 14:42 | XMS_ITS | Clinical Summary ---
Author Organization [employer] Address [address] [place] [address] 7t [place] [address] Care Team Providers Care Director Building Name Role Phone Unavailable Primary Care Provider [...]
--- OUTSIDE RECORDS SUMMARY | 2025-02-09 14:42 | XMS_ITS | Continuity of Care Document ---
Author Organization [facility] Address [address] [place] [address] [address] [place] [phone] Phone Care Team Providers Care Spray Machine Operator Name Role Phone David ALEMAN, KARTHIKEYAN, Kali ORSARIO Unavailable U navailable Procedures Procedure Date Offic Cons New/estab Mod-hi 60- CT & MA Surgical Stockings Duomed Knee High 15-2 0 Surgical Stockings Return Duplex Scan-extrem Veins; Comp- CT & MA Advance Directives Directive Yes / No Effective Date File Name No Information Encounters Encounter Description Practice Location Reason(s) For Visit Diagnoses Date Provider Providers Copied on Encounter [facility], [address] [place] [address] [address], [id number], [place] tel:[phone] [facility] No Information 5 David ALEMAN, ABRAHAM NAPIER. [address] [facility] [address], [place], [id number] , [place]. tel:[phone] Offic Cons New/estab Mod-hi 60- CT & [place] [facility], [address] [place] [address] [address], [place], [id number], [place] tel:[phone] [facility] Chronic venous hypertension (idiopathic) with other complications of bilateral lower extremityRestle ss legs syndromeEssenti al (primary) hypertensionVen ous insufficiency (chronic) (peripheral)Pru ritus, unspecifiedCram p and spasmLocalized edema 4 David ALEMAN RVT, ABRAHAM Bass. [address] [address], [place], [place], [id number] , [place]. tel:[phone] Referring Provider: Ray Doyle, [address] [place], [address]. tel:[phone] [facility], [address] [facility] [address], [place], [id number], tel:[phone] [facility] Chronic venous hypertension (idiopathic) with other complications of bilateral lower extremity 4 David ALEMAN RVT, ABRAHAM Bass. [address] [facility] [address], [place], [place], [id number] , [place]. tel:[phone] Referring Provider: Ray Doyle, [address] [facility], [place], [address]. tel:[phone] Family History Family Member Type Diagnosis Age At Onset No Information Payers Payer name Insurance type Covered alliance party ID John yoder(s) [facility] [id number] Social History Type Description Quantity Date [...]
--- OUTSIDE RECORDS SUMMARY | 2025-02-09 14:42 | XMS_ITS | Encounter Summary ---
Author Organization [employer] Address [address] [facility] 7t [place] [address] Care Team Providers Care Vice President Of Software Development Name Role Phone Unavailable Primary Care Provider Unavailabl e Encounter Details Date Type Department Care Team (Latest Contact Info) Description 09/11/2019 Abstract [facility] CONVERSIONS Dental, Provider, DDS Social History [...]
== END 2025-02-09 14:23 | disposition home or self-care (01) ==
LOC: HO.HMGCX 14:22
PROVIDERS: PCP Nurse Practitioner Family; Visit Provider Nurse Practitioner Family
DX: R79.89 Other specified abnormal findings of blood chemistry (principal); E04.9 Nontoxic goiter, unspecified
CPT/HCPCS: 76536

== ENCOUNTER → 2025-02-09 14:38 | Outpatient (BNV) | payer OTHER, SELFPAY | PROVIDERS: PCP Nurse Practitioner Family; Visit Provider Radiology Diagnostic Radiology | DX: R94.6 Abnormal results of thyroid function studies (principal); E04.1 Nontoxic single thyroid nodule | CPT/HCPCS: 76536 ==

== ENCOUNTER 2025-02-13 07:04 | Outpatient (AMB) | payer OTHER, SELFPAY ==
--- OUTSIDE RECORDS SUMMARY | 2025-02-13 07:06 | XMS_ITS | Encounter Summary ---
Author Organization [employer] Address [address] [facility] 7t [place] [address] Care Team Providers Care Modeling Director Name Role Phone Unavailable Primary Care Provider Unavailabl e Encounter Details Date Type Department Care Team (Latest Contact Info) Description 09/11/2019 Abstract [facility] CONVERSIONS Dental, Provider, DDS Social History Tobacco [...]
--- OUTSIDE RECORDS SUMMARY | 2025-02-13 07:06 | XMS_ITS | Continuity of Care Document ---
Author Organization [facility] Address [address] [place] [address] [address] [place] [address] Phone Care Team Providers Care Crown Ceramist Name Role Phone David ALEMAN, KARTHIKEYAN, Kali [...] Providers Copied on Encounter [facility], [address] [place] [address] [address], [id number], [place] tel:[phone] [facility] No Information 5 David ALEMAN, ABRAHAM NAPIER. [address] [facility] [address], [place], [id number] , [place]. tel:[phone] Offic Cons New/estab Mod-hi 60- [place] & [place] [facility], [address] [place] [address] [address], [place], [id number], [place] tel:[phone] [facility] Chronic venous hypertension (idiopathic) with other complications of bilateral lower extremityRestle ss legs syndromeEssenti al (primary) hypertensionVen ous insufficiency (chronic) (peripheral)Pru ritus, unspecifiedCram p and spasmLocalized edema 4 David ALEMAN RVT, ABRAHAM Bass. [address] [address], [place], [place], [id number] , [place]. tel:[phone] Referring Provider: Ray Doyle, [address] [place], [address]. tel:[phone] [facility], [address] [facility] [address], [place], [id number], tel:[phone] [facility] Chronic venous hypertension (idiopathic) with other complications of bilateral lower extremity 4 David ALEMAN RVT, ABRAHAM Bass. [address] [facility] [address], [place], [place], [id number] , [place]. tel:[phone] Referring Provider: Ray Doyle, [address] [facility], [place], [address]. tel:[phone] Family History Family Member Type Diagnosis Age At Onset No Information Payers Payer name Insurance type Covered green party ID John yoder(s) [facility] [id number] Social History Type Description Quantity Date [...]
--- OUTSIDE RECORDS SUMMARY | 2025-02-13 07:06 | XMS_ITS | Clinical Summary ---
Author Organization [employer] Address [address] [place] [address] [address] [place] [address] Care Team Providers Care Hat Model Name Role Phone Unavailable Primary Care Provider [...]
--- NOTE | 2025-02-13 07:31 | A.OFFPC_ITS ---
Intake Visit Reasons: Discuss thyroid results before starting med-iPhone Allergies hydrochlorothiazide Allergy (Unknown, Verified 02/13/25 07:31) unknown lisinopril Allergy (Unknown, Verified 02/13/25 07:31) unknown procaine [From NOVOCAIN] Allergy (Unknown, Verified 02/13/25 07:31) UNKNOWN atorvastatin Adverse Reaction (Unknown, Verified 02/13/25 07:31) myalgias hydromorphone [Dilaudid] Adverse Reaction (Unknown, Verified 02/13/25 07:31) lightheaded, dizziness seasonal Allergy (Unknown, Uncoded 02/13/25 07:31) unknown Medication List - Last Reconciled 02/13/25 by DAVID Godinez atorvastatin 40 mg PO DAILY blood sugar diagnostic (FreeStyle Lite Strips) tid testing blood-glucose meter (FreeStyle Lite Meter kit) tid testing diltiazem HCl CD 120 mg PO DAILY esomeprazole magnesium 40 mg PO DAILY lancets (FreeStyle Lancets) tid testing lorazepam 1 mg PO before flying PRN; 3 days losartan 50 mg PO DAILY 90 days sertraline 75 mg (1.5 x 50 mg) PO DAILY 90 days spironolactone 25 mg PO DAILY Tobacco use date assessed: 01/17/25 Dental Screening Dental Screen Date: 01/17/25 HPI Discuss thyroid results before starting med-iPhone HPI Details History of Present Illness The patient is a 60-year-old female presenting with concerns regarding her thyroid function tests. Recently, she noticed a slight elevation in her TSH levels, which remain a bit above 4. She observed mild hair loss but did not experience any constipation or overt fatigue. Prior ultrasound findings revealed small nodules and cysts in the thyroid, which have been reviewed by an installation supervisor, indicating no immediate further action is necessary. She continues to monitor her thyroid function and remains under routine endocrinology care for diabetes. Review of Systems - Endocrine: Reports slight hair loss. D enies constipation, excessive sluggishness. - Respiratory: Denies shortness of breat h. - Cardiac: Denies chest pain. - General: Denies fever, chills. Plan Considering her thyroid function tests, I discussed initiating low-dose levothyroxine, though she has chosen to monitor her condition instead. The installation supervisor's review of her thyroid nodules suggests no further immediate intervention. Ongoing monitoring of her thyroid levels and regular diabetes management with her installation supervisor is planned. Discussion Notes I have discussed with the patient her recent thyroid test results, indicating slightly elevated TSH levels. I explained the possibility of using a low dose levothyroxine to help adjust these levels but respected her choice to continue monitoring rather than start medication. The installation supervisor?s assessment of her thyroid nodules reassured no need for additional imaging follow-up. We reviewed ongoing diabetes management and emphasized the importance of monitoring her thyroid function periodically. I acknowledged and encouraged her upcoming travel plans, which might positively impact her well-being. Patient Instructions - Continue to monitor thyroid function w ith periodic lab tests. - Follow up with installation supervisor as sche duled for diabetes management. - Watch for any new or worsening symptom s and report them. - Enjoy your upcoming trip to [facility]! [facility] Medical History Venous reflux YULY (obstructive sleep apnea) Skin tags, multiple acquired PAC (premature atrial contraction) Toe pain, right Hypothyroidism Hyperglycemia Hyperlipemia Palpitations HTN (hypertension) Esophageal hernia Anxiety Surgical History H/O colonoscopy History of hysteroscopy Family History Father Hyperlipidemia Stroke Mother HTN (hypertension) Hyperlipidemia Stroke Brother Melanoma Daughter No problems noted. Daughter No problems noted. Social History Housing: House Alcohol intake: never Patient Tobacco Use Status: Never used Tobacco e-Cigarette/Vaping Use: Never Used Second Hand Smoke Exposure: No service: No Current occupational status: other Cognitive needs: No Hearing needs: No Vision needs: No Female Reproductive History Menstrual Age of Menarche: 12 Questionnaire Thrive Questionnaire Date Thrive assessed: 01/11/25 I am a: Patient What is your living situation today?: I have a steady place to live Within the past 12 months, did the food you bought not last and you didn't have the money to get more?: Never true Within the past 12 months, did you worry whether your food would run out before you got money to buy more?: Sometimes True Do you have trouble paying for medicines?: Yes Do you have trouble getting transportation to medical appointments?: No Do you have trouble paying your heating and electricity bill?: Yes Do you have trouble taking care of your child, family member or friend?: No Do you have trouble with day-to-day activities such as bathing, preparing meals, shopping, managing finances, etc.?: No Are you currently unemployed and looking for a job?: Yes Are you interested in more education?: Yes Currently or been in a relationship where the following occur: No concerns reported THRIVE Score: 2 DEJA-7 AMB Questionnaire DEJA-7 Date DEJA - 7 assessed: 01/17/25 Source: Developed by Drs. Kali Meneses, Melisa Cha, Yaron Chao and colleagues, with an educational joshua from [employer]. Physical exam (Primary Care) Tobacco/Smoking Status: Tobacco use Status Tobacco use date assessed 01/17/25 01/17/25 08:07 Patient Tobacco Use Status Never used Tobacco 01/17/25 08:02 e-Cigarette/Vaping Use Never Used 01/17/25 08:02 Thrive Assessment: Date of Thrive Assessment Date Thrive assessed 01/11/25 02/07/25 07:50 Currently or been in a relationship where the following occur: No concerns reported Telehealth Telehealth Telehealth Platform: [facility] Location of provider rendering services: practice address Location of patient: address on file Patient Identification confirmed using: Name, : Yes Telehealth method: video Patient verbally consented to treatment: Yes Patient verbally consented to billing insurance company: Yes Patient informed of any privacy concerns related to visit: Yes Minutes spent on Phone/Video with Pt.: 12 Coding Level of Care Code Tele Est Pt Level 3 (82580) Diagnoses Elevated TSH R7. Hypothyroidism E03.9 Assessment & Plan Assessment & Plan (1) Elevated TSH: Code(s): R79.89 - Other specified abnormal findings of blood chemistry Category: Medical (2) Hypothyroidism: Code(s): E03.9 - Hypothyroidism, unspecified Category: Medical Plan . Orders: Orders Comprehensive Met. Panel 2 Months - Other specified abnormal findings of blood chemistry Thyroid Peroxidase Antibodies 2 Months - Other specified abnormal findings of blood chemistry TSH reflex Free T4 2 Months R79.89 - Other specified abnormal findings of blood chemistry Complete Blood Count Auto Diff 2 Months E03.9 - Hypothyroidism, unspecified Medications: Discontinued levothyroxine Discontinued Reason: Doctor's Order 25 mcg PO DAILY 30 caps 2RF 30 days
== END 2025-02-13 08:43 | disposition home or self-care (01) ==
LOC: HO.HMCC 07:05
PROVIDERS: PCP Nurse Practitioner Family; Visit Provider Nurse Practitioner Family
DX: R79.89 Other specified abnormal findings of blood chemistry (principal); E03.9 Hypothyroidism, unspecified

== ENCOUNTER → 2025-02-13 07:04 | Outpatient (BNVA) | payer OTHER, SELFPAY | PROVIDERS: PCP Nurse Practitioner Family; Visit Provider Nurse Practitioner Family ==

== ENCOUNTER 2025-04-09 08:52 | Outpatient (AMB) | payer OTHER, SELFPAY ==
[2025-04-09 08:54] VITALS: BP 120/62; PULSE 72; BMI 27.9
--- NOTE | 2025-04-09 08:54 | MHC.OFFVIS ---
Vital Signs 04/09/25 08:54 Height 5 ft 1 in Weight 147 lb 11.355 oz BMI 27.9 BP 120/62 Blood Pressure Location Lt brachial Position Sitting Pulse 72 Pulse Source Pulse Oximeter Intake Visit Reasons: 6 mth f/up Allergies hydrochlorothiazide Allergy (Unknown, Verified 02/13/25 07:31) unknown lisinopril Allergy (Unknown, Verified 02/13/25 07:31) unknown procaine [From NOVOCAIN] Allergy (Unknown, Verified 02/13/25 07:31) UNKNOWN atorvastatin Adverse Reaction (Unknown, Verified 02/13/25 07:31) myalgias hydromorphone [Dilaudid] Adverse Reaction (Unknown, Verified 02/13/25 07:31) lightheaded, dizziness seasonal Allergy (Unknown, Uncoded 02/13/25 07:) unknown Medication List - Last Reconciled 04/09/25 by Jc Dangelo MD atorvastatin 40 mg PO DAILY blood sugar diagnostic (FreeStyle Lite Strips) tid testing blood-glucose meter (FreeStyle Lite Meter kit) tid testing diltiazem HCl CD 120 mg PO DAILY esomeprazole magnesium 40 mg PO DAILY lancets (FreeStyle Lancets) tid testing lorazepam 1 mg PO before flying PRN; 3 days losartan 50 mg PO DAILY 90 days sertraline 75 mg (1.5 x 50 mg) PO DAILY 90 days spironolactone 25 mg PO DAILY HPI Comments Details: Angelica returns for follow-up. History of hypertension and premature atrial contractions. She used to have markedly high PAC burden. Then she was put on Diltiazem. Also diagnosed to have mild obstructive sleep apnea, but unable to tolerate CPAP. In prior visits, spironolactone was cut back because of low blood pressure. However, it seems that blood pressure went up again and now she is back on it. Otherwise, she states she feels okay. No new concerns. She frequently visits [place] to meet family. No issues. [facility] Medical History Venous reflux YULY (obstructive sleep apnea) Skin tags, multiple acquired PAC (premature atrial contraction) Toe pain, right Hypothyroidism Hyperglycemia Hyperlipemia Palpitations HTN (hypertension) Esophageal hernia Anxiety Surgical History H/O colonoscopy History of hysteroscopy Family History Father Hyperlipidemia Stroke Mother HTN (hypertension) Hyperlipidemia Stroke Brother Melanoma Daughter No problems noted. Daughter No problems noted. Social History Housing: House Alcohol intake: never Patient Tobacco Use Status: Never used Tobacco e-Cigarette/Vaping Use: Never Used Second Hand Smoke Exposure: No service: No Current occupational status: other Cognitive needs: No Hearing needs: No Vision needs: No Female Reproductive History Menstrual Age of Menarche: 12 Review of Systems Const Denies weakness ENT Denies dizziness Card Denies chest pain, Denies chest pain with activity, Denies syncope, Denies rapid heart rate, Denies pedal edema, Denies edema, Denies leg edema, Denies lightheadedness, Denies palpitations, Denies dyspnea, Denies dyspnea on exertion and Denies orthopnea Resp Denies cough, Denies dyspnea and Denies dyspnea on exertion GI Denies hematochezia and Denies change in stool character Musc Denies abnormal gait, Denies muscle cramps, Denies muscle weakness, Denies numbness, Denies radiating pain into limb and Denies tingling Neuro Denies abnormal gait, Denies dizziness, Denies syncope, Denies numbness, Denies tingling and Denies weakness Endo Denies palpitations Physical Exam Vital Signs: Last Vital Signs Pulse 72 04/09/25 08:54 BP 120/62 04/09/25 08:54 BMI result Body Mass Index 27.9 Const General: comfortable and no acute distress Orientation/consciousness: patient oriented x3 HEENT Other: Unremarkable Head: Yes normal to inspection Neck Neck: Yes normal visual inspection Chest Chest palpation & inspection: normal inspection of the chest Resp Auscultation: clear to auscultation bilaterally Cardio Palpation: normal PMI Heart sounds: S1 normal heart sound present, S2 normal heart sound present, no gallops, Murmur heart sound present systolic I/ and at the right sternal border and no rubs GI Palpation (GI): Soft to palpation Back/Spine/Pelvis Other: unremarkable Skin General skin exam: no rashes or lesions noted Neuro General: patient oriented x3 Extrem General: Yes normal to inspection Psych Mental Status: mental status grossly normal Assessment & Plan Assessment & Plan (1) PAC (premature atrial contraction): Code(s): I49.1 - Atrial premature depolarization Category: Medical Plan: Stable. No recent issues. Continue Diltiazem. (2) Essential hypertension: Code(s): I10 - Essential (primary) hypertension Category: Medical Plan: Stable on the current regimen including losartan, spironolactone. Stable renal function and potassium. Advised her to get periodic lab work and she states she would get that through her PCP. (3) YULY (obstructive sleep apnea): Code(s): G47.33 - Obstructive sleep apnea (adult) (pediatric) Category: Medical Plan: Sleep study from 2019 showed mild sleep apnea. Unable to use. Has tried several times. (4) Mixed hyperlipidemia: Code(s): E78.2 - Mixed hyperlipidemia Category: Medical Plan: Her LDL was as much as 177 mg/dL. On statins. Last LDL 73 mg/dL. Plan Discussion Notes During our discussion, I reinforced the patient's current management of hypertension with spironolactone due to previously high blood pressure upon discontinuation of the medication. We discussed the importance of adherence to the treatment regimen and regular monitoring. For hypercholesterolemia, I acknowledged the stability in her current levels and supported her diet adjustments and active lifestyle. We recommended repeating her blood work periodically to monitor the impact of her medications. Encouragement was given for weight loss due to weight gain from frequent travel to [facility]. We agreed on an annual follow-up unless concerns arise. Patient was informed and verbally consented to the use of an ambient scribe for clinic note documentation during this visit. Patient Instructions: - Continue taking spironolactone as prescribed. - Monitor blood pressure regularly at home. - Get blood tests to monitor effects of spironolactone. - Maintain a balanced diet and an active lifestyle to help manage weight and cholesterol. - Follow up in one year or earlier if any new symptoms occur. Coding Level of Care Code Est Pt Level 4 (08741) Complex EM visit Add On G2211 Diagnoses PAC (premature atrial contraction) I49.1 Essential hypertension I10 YULY (obstructive sleep apnea) G47.33 Mixed hyperlipidemia E78.2
--- OUTSIDE RECORDS SUMMARY | 2025-04-09 09:18 | XMS_ITS | Continuity of Care Document ---
Author Organization [facility] Address [address] [place] [address] [address] [place] [address] Phone Care Team Providers Care Catalytic Case Operator Name Role Phone David ALEMAN, KARTHIKEYAN, [...] Providers Copied on Encounter [facility], [address] [place] [address] [address]Sy[place], [id number], [place] tel:[phone] [facility] No Information 5 David ALEMAN, ABRAHAM NAPIER. [address] [facility] [address], [place], [id number] , [place]. tel:[phone] Offic Cons New/estab Mod-hi 60- [place] & [place] [facility], [address] [place] [address] [address], [place], [id number], [place] tel:[phone] [facility] Chronic venous hypertension (idiopathic) with other complications of bilateral lower extremityRestle ss legs syndromeEssenti al (primary) hypertensionVen ous insufficiency (chronic) (peripheral)Pru ritus, unspecifiedCram p and spasmLocalized edema 4 David ALEMAN RVT, ABRAHAM Bass. [address] [address], [place], [place], [id number] , [place]. tel:[phone] Referring Provider: Ray Doyle, [address] [place], [address]. tel:[phone] [facility], [address] [facility] [address], [place], [id number], tel:[phone] [facility] Chronic venous hypertension (idiopathic) with other complications of bilateral lower extremity 4 David ALEMAN RVT, ABRAHAM Bass. [address] [facility] [address], [place], [place], [id number] , [place]. tel:[phone] Referring Provider: Ray Doyle, [address] [facility], [place], [address]. tel:[phone] Family History Family Member Type Diagnosis Age At Onset No Information Payers Payer name Insurance type Covered alliance party ID John yoder(s) [facility] [id number] Social History Type Description Quantity Date [...]
== END 2025-04-09 09:24 | disposition home or self-care (01) ==
LOC: HO.HCS 08:52
PROVIDERS: PCP Nurse Practitioner Family; Visit Provider Internal Medicine
DX: I49.1 Atrial premature depolarization (principal); I10 Essential (primary) hypertension; G47.33 Obstructive sleep apnea (adult) (pediatric); E78.2 Mixed hyperlipidemia
CPT/HCPCS: 99214; G2211

== ENCOUNTER → 2025-04-09 08:52 | Outpatient (BNVA) | payer OTHER, SELFPAY | PROVIDERS: PCP Nurse Practitioner Family; Visit Provider Internal Medicine | DX: I49.1 Atrial premature depolarization (principal); I10 Essential (primary) hypertension; G47.33 Obstructive sleep apnea (adult) (pediatric); E78.2 Mixed hyperlipidemia | CPT/HCPCS: 99212 ==

== ENCOUNTER 2025-04-23 13:15 | Outpatient (AMB) | payer OTHER, SELFPAY ==
--- OUTSIDE RECORDS SUMMARY | 2025-01-30 03:56 | XMS_ITS | Continuity of Care Document ---
Author Organization [facility] Address [address] [place] [address] [address] [place] [phone] Phone Care Team Providers Care Refinery Technician Name Role Phone David ALEMAN, KARTHIKEYAN, Kali ROSARIO Unavailable U navailable Procedures Procedure Date Offic Cons New/estab Mod-hi 60- CT & [place] Surgical Stockings Duomed Knee High 15-2 0 Surgical Stockings Return Duplex Scan-extrem Veins; Comp- CT & [place] Advance Directives Directive Yes / No Effective Date File Name No Information Encounters Encounter Description Practice Location Reason(s) For Visit Diagnoses Date Provider Providers Copied on Encounter [facility], [address] [place] [address] [address], [id number], [place] tel:[phone] [facility] No Information 5 David ALEMAN, ABRAHAM NAPIER. [address] [facility] [address], [place], [id number] , [place]. tel:[phone] Offic Cons New/estab Mod-hi 60- CT & [place] [facility], [address] [place] [address] [address], [place], [id number], [place] tel:[phone] [facility] Chronic venous hypertension (idiopathic) with other complications of bilateral lower extremityRestle ss legs syndromeEssenti al (primary) hypertensionVen ous insufficiency (chronic) (peripheral)Pru ritus, unspecifiedCram p and spasmLocalized edema 4 David ALEMAN RVT, ABRAHAM Bass. [address] [address], [place], [place], [id number] , [place]. tel:[phone] Referring Provider: Ray Doyle, [address] [place], [address]. tel:[phone] [facility], [address] [facility] [address], [place], [id number], tel:[phone] [facility] Chronic venous hypertension (idiopathic) with other complications of bilateral lower extremity 4 David ALEMAN RVT, ABRAHAM Bass. [address] [facility] [address], [place], [place], [id number] , [place]. tel:[phone] Referring Provider: Ray Doyle, [address] [facility], [place], [address]. tel:[phone] Family History Family Member Type Diagnosis Age At Onset No Information Payers Payer name Insurance type Covered green party ID John yoder(s) [facility] [id number] Social History Type Description Quantity Date Captured Comments Alcohol Use Details Unknown Caffeine Use Details Unknown Tobacco Use Status No Information Smoking Status No Information Sex Female Chief Complaint And Reason For Visit No Information Reason For Referral Reason For Referral No Information Plan Of Treatment Date Type Action Status Goal Diet education completed Referral Ordered: Weight management: Referral to physician timeframe: 3 Months (related to Body mass index (BMI) 27.0-27.9, adult) ordered History Of Present Illness Encounter Date Complaint History Of Prese nt Illness No Information Functional Status Date Functional Assessmen t No Information Instructions Date Instruction Additional Infor mation Diet education Related to Body mass index (BMI) 27.0-27.9, adult Patient education booklet given Related to Chronic venous hypertension (idiopathic) with other complications of bilateral lower extremity Giving Encouragement to exercise Related to Body mass index (BMI) 27.0-27.9, adult Lifestyle education Related to B nikhil mass index (BMI) 27.0-27.9, adult Compression stocking usage as conservative measure Related to Chronic venous hypertension (idiopathic) with other complications of bilateral lower extremity Assessments Type Assessment Date No Information Patient Care Teams Name Effective Dates (start - stop) Status Members No Information
--- OUTSIDE RECORDS SUMMARY | 2025-04-23 13:44 | XMS_ITS | Encounter Summary ---
Author Organization [employer] Address [address] [facility] [address] [place] [address] Care Team Providers Care Sawmill Worker Name Role Phone Unavailable Primary Care Provider Unavailabl e Encounter Details Date Type Department Care Team (Latest Contact Info) Description 09/11/2019 Abstract [facility] CONVERSIONS Dental, Provider, DDS Social History [...]
--- NOTE | 2025-04-23 13:45 | A.OFFVIS_ITS ---
VS Expanded 04/23/25 13:46 Height 5 ft 1 in Weight 147 lb 11.355 oz BMI 27.9 Intake Visit Reasons: T2DM Allergies hydrochlorothiazide Allergy (Unknown, Verified 02/13/25 07:31) unknown lisinopril Allergy (Unknown, Verified 02/13/25 07:31) unknown procaine (From NOVOCAIN) Allergy (Unknown, Verified 02/13/25 07:31) UNKNOWN atorvastatin Adverse Reaction (Unknown, Verified 02/13/25 07:31) myalgias hydromorphone (Dilaudid) Adverse Reaction (Unknown, Verified 02/13/25 07:) lightheaded, dizziness seasonal Allergy (Unknown, Uncoded 02/13/25 07:) unknown Nutrition Presentation Details: Pt presents for MNT f/u for t2dm Pt was last seen for nutrition in 06/2024, wants to restart working on diet modifications for glucose control. did not bring glucometer Reports having 3 meals/day , challenges with portions/food options in the evening until late evening food frequency fruit: 0-1/d dairy 2/d fish : 1/wk ve /d beverages:water, juice, smoothies cookies/cakes bryan ++ physical activity : none additional to ADL, reports having a stationary bike at home BS Monitoring Most Recent Diabetes Results: Creatinine, (0.5-1.4) 0.77 mg/dL 01/29/25 BUN, (9-16) 12 mg/dL 01/29/25 Sodium, (135-145) 137 mmol/L 01/29/25 Potassium, (3.3-5.1) 4.3 mmol/L 01/29/25 Chloride, (96-108) 102 mmol/L 01/29/25 Carbon Dioxide, (22-29) 26 mmol/L 01/29/25 Calcium, (8.4-10.2) 9.7 mg/dL Δ 01/29/25 AST, (5-31) 25 U/L 01/29/25 ALT, (0-31) 19 U/L 01/29/25 Total Protein, (6.5-8.0) 7.3 g/dL 01/29/25 Albumin, (3.5-5.0) 4.3 g/dL 01/29/25 TXF-Ultrqya-Xi.Jeor Equation Height: 5 ft 1 in Weight: 148 lb Resting Metabolic Rate: 1182.82 Calculated Activity Level: Sedentary Calories Needed to Maintain Weight: 1419.38 [facility] Medical History Venous reflux YULY (obstructive sleep apnea) Skin tags, multiple acquired PAC (premature atrial contraction) Toe pain, right Hypothyroidism Hyperglycemia Hyperlipemia Palpitations HTN (hypertension) Esophageal hernia Anxiety Surgical History H/O colonoscopy History of hysteroscopy Family History Father Hyperlipidemia Stroke Mother HTN (hypertension) Hyperlipidemia Stroke Brother Melanoma Daughter No problems noted. Daughter No problems noted. Social History Housing: House Alcohol intake: never Patient Tobacco Use Status: Never used Tobacco e-Cigarette/Vaping Use: Never Used Second Hand Smoke Exposure: No service: No Current occupational status: other Cognitive needs: No Hearing needs: No Vision needs: No Female Reproductive History Menstrual Age of Menarche: 12 Assessment & Plan Assessment & Plan (1) Diabetes: Code(s): E11.9 - Type 2 diabetes mellitus without complications Category: Medical Plan: Wt: 67 Kg ( 05/18 ) Est kcal needs as per MSJ: 1400 (40% carb, 30% protein/fat) Est fluid needs as per 25-30 ml/d: 2000 Est prot per day as per 1 g/kg bw: 70 Recommend fiber intake : 8-10 g per day and gradually increase to 25-28 g per day for women and 35-38 g for men or as tolerated Recommend sodium intake per day : less than 2300 mg Educated patient on: ( R = reviewed V = verbalizes understanding N/R = needs review N/A = not applicable * Food sources of carbohydrate, adequate serving sizes and its role in various health conditions: R V N/R * Differences between complex carbohydrates a simple carbohydrates, role of fiber in diet: R * Lean protein sources of foods: R * hydration :R * Differences between types of fats and role in diet (mono on saturated fat fatty acids, saturated fatty acids, trans fats): R V N/R * Food sources of sodium in salt and healthy modifications for heart health in kidney health: R V R/V * Vitamins and minerals: R V N/R * Healthy plate method concept: R V N/R * Physical activity: Benefits a precaution: R * Hypoglycemia protocol (rule of 15): R V N/R * Dietary prevention of Hyperglycemia: R Patient Instructions: engage in physical activity 30 minutes every other day follow healthy plate method at dinner Have a glucerna shake as bedtime snack Coding Level of Care Code Nutr Indiv Subseq (06135) Diagnoses Diabetes E11.9 Time Spent (min) 30
[2025-04-23 13:46] VITALS: BMI 27.9
[2025-05-02 12:47] VITALS: BMI 28.0
== END 2025-04-23 14:18 | disposition home or self-care (01) ==
LOC: HO.ENCR 13:16
PROVIDERS: PCP Nurse Practitioner Family; Visit Provider Dietitian, Registered
DX: E11.9 Type 2 diabetes mellitus without complications (principal)

== ENCOUNTER → 2025-04-23 13:15 | Outpatient (BNVA) | payer OTHER, SELFPAY | PROVIDERS: PCP Nurse Practitioner Family; Visit Provider Dietitian, Registered | DX: Z71.3 Dietary counseling and surveillance (principal); E11.9 Type 2 diabetes mellitus without complications | CPT/HCPCS: 97803 ==

== ENCOUNTER 2025-05-31 08:34 | Outpatient (REF) | payer OTHER, SELFPAY ==
--- OUTSIDE RECORDS SUMMARY | 2025-05-31 08:46 | XMS_ITS | Clinical Summary ---
Author Organization [facility] Address [address] [place] [address] Phone Care Team Providers Care Humanities And Languages Professor Name Role Phone Juvenal Segura MD Primary Care Provider [phone]- [phone] Social History Tobacco Use Types Packs/Day Years Used Date Smoking Tobacco: Never Assessed Education Answer Date Recorded Are you interested in more education? Not on art e 02/19/2023 Are you concerned about learning? Not on file 02/19/2023 No 02/19/2023 No 02/19/2023 Digital Access Answer Date Recorded No 03/20/2023 No 03/20/2023 No 03/20/2023 Reliable internet access at home? Not on file 03/20/2023 Device with a working camera? Not on file Comments Unknown Sex and Gender Information Value Date Recorded Sex Assigned at Female 09/28/2019 10:32 AM EST Legal Sex Female 10:19 AM EST Gender Identity Female 09/28/2019 10:32 AM EST Sexual Orientation Straight 09/28/2019 10 :32 AM EST Plan of Treatment Health Maintenance Due Date Last Done Comments LIPID PANEL 1965 DEPRESSION SCREENING 1977 SMOKING Hx and SMOKELESS TOB ACCO SCREENING 1978 HEPATITIS C SCREENING 1983 HIV ONE-TIME SCREENING (18-6 5 YEARS) 1983 PAP SMEAR 1986 MAMMOGRAM 2005 COLOGUARD 2010 COLONOSCOPY 2010 COLORECTAL CANCER SCREENING 2010 FIT TEST 2010 FOBT 2010 SIGMOIDOSCOPY 2010 VIRTUAL COLONOSCOPY 2010 PNEUMOCOCCAL VACCINES (50+ y ears) (1 of 1 - PCV) 2015 ZOSTER VACCINES (1 of 2) 2015 COVID-19 VACCINE (2 - 2023-2 5 season) 2024 01/21/2021 Adult Td,Tdap Booster 09/07/2026 09/07/2016 RSV VACCINE (1 - 1-dose 75+ series) 01/23/2040 HEPATITIS A VACCINES Aged Out No long er eligible based on patient's age to complete this topic HIB VACCINES Aged Out No longer eligi ble based on patient's age to complete this topic MENINGOCOCCAL VACCINES (ACWY) Aged Out No longer eligible based on patient's age to complete this topic MENINGOCOCCAL VACCINES (B) Aged Out N o longer eligible based on patient's age to complete this topic Medical Devices Not on file Insurance [employer] PARTIAL [employer] NET PARTIAL HEALTH SAFETY NET PARTIAL HEALTH SAFETY NET PARTIAL HEALTH SAFETY NET PARTIAL HEALTH SAFETY NET PARTIAL HEALTH SAFETY NET PARTIAL HEALTH SAFETY NET PARTIAL HEALTH SAFETY NET PARTIAL Care Teams Humanities And Languages Professor Relationship Specialty Start Date End Date Juvenal Segura MD [email or web address] PCP - General Internal Medicine 09/28/19 Additional Source Comments The information contained in this document represents components of the legal health record. It is not the complete legal health record.[facility]
--- OUTSIDE RECORDS SUMMARY | 2025-05-31 08:46 | XMS_ITS | Encounter Summary ---
Author Organization [employer] Address [address] [place] [address] Care Team Providers Care Family Service Center Director Name Role Phone Unavailable Primary Care Provider Unavailabl e Encounter Details Date Type Department Care Team (Latest Contact Info) Description 09/11/2019 Abstract [facility] CONVERSIONS Dental, Provider, DDS Social History Tobacco [...]
[2025-05-31 10:09] LABS: MANUAL DIFF FLAG NO
[2025-05-31 10:18] LABS: Hematocrit 39.6 % (37.0-47.0); Hemoglobin 13.1 g/dl (12.0-16.0); Imm Gran Abs Auto 0.02 X10*3/uL (0.00-0.03); Imm Gran Pct Auto 0.2 % (0.0-0.4); Lymphocytes Absolute Auto 2.5 X10*3/uL (1.2-4.9); Mean Corpuscular HGB Conc 33.1 g/dl (31.0-35.0); Mean Corpuscular Hemoglobin 28.8 pg (27.0-33.0); Mean Corpuscular Volume 87.0 fL (80.0-98.0); NRBC Abs Auto 0.000 X10*3/uL (0.0-0.012); NRBC Pct Auto 0.0 /100WBC (0.0-0.2); Platelet Count 267 X10*3/uL (160-400); Red Blood Count 4.55 X10*6/uL (4.20-5.50); White Blood Count 8.3 X10*3/uL (4.8-10.8)
[2025-05-31 10:53] LABS: Alanine Aminotransferase 28 U/L (0-31); Albumin Level 4.7 g/dL (3.5-5.0); Alkaline Phosphatase 104 U/L (39-117); Anion Gap 12 (12-20); Aspartate Amino Transferase 29 U/L (5-31); Blood Urea Nitrogen 14 mg/dL (9-16); Calcium 9.2 mg/dL (8.4-10.2); Carbon Dioxide 27 mmol/L (22-29); Chloride 104 mmol/L (96-108); Estimated Glomerular Filt Rate > 60; Potassium 4.4 mmol/L (3.3-5.1); Sodium 139 mmol/L (135-145); Total Protein 7.6 g/dL (6.5-8.0)
[2025-05-31 12:29] LABS: Free T4 (Free Thyroxine) 0.76 ng/dL (0.71-1.85)
== END 2025-05-31 08:35 | disposition home or self-care (01) ==
LOC: HO.HMGCLDS 08:34
PROVIDERS: PCP Nurse Practitioner Family; Visit Provider Nurse Practitioner Family
DX: R79.89 Other specified abnormal findings of blood chemistry (principal); E03.9 Hypothyroidism, unspecified
CPT/HCPCS: 36415; 80053; 84439; 84443; 85025; 86376

== ENCOUNTER 2025-06-04 13:58 | Outpatient (AMB) | payer OTHER, SELFPAY ==
--- NOTE | 2025-06-04 14:20 | MHC.AMNUTRGE ---
VS Expanded 06/04/25 14:22 Height 5 ft 1 in Weight 147 lb 4.301 oz BMI 27.8 Intake Visit Reasons: T2DM Allergies hydrochlorothiazide Allergy (Unknown, Verified 06/05/25 07:21) unknown lisinopril Allergy (Unknown, Verified 06/05/25 07:21) unknown procaine (From NOVOCAIN) Allergy (Unknown, Verified 06/05/25 07:21) UNKNOWN atorvastatin Adverse Reaction (Unknown, Verified 06/05/25 07:21) myalgias hydromorphone (Dilaudid) Adverse Reaction (Unknown, Verified 06/05/25 07:21) lightheaded, dizziness seasonal Allergy (Unknown, Uncoded 06/05/25 07:21) unknown Nutrition Presentation Details: Pt presents for MNT f/u T2DM Pt report getting into exercise routine, 10 min/day working on reducing empty monet snacks BS Monitoring Most Recent Diabetes Results: Cholesterol, (<200) 157 mg/dL Today HDL Cholesterol, (>40) 42 mg/dL Today Triglycerides, (<150) 166 mg/dL H Today Creatinine, (0.5-1.4) 0.80 mg/dL Today BUN, (9-16) 19 mg/dL H Today Sodium, (135-145) 138 mmol/L Today Potassium, (3.3-5.1) 4.1 mmol/L Today Chloride, (96-108) 105 mmol/L Today Carbon Dioxide, (22-29) 26 mmol/L Today Calcium, (8.4-10.2) 8.9 mg/dL Today AST, (5-31) 30 U/L Today ALT, (0-31) 28 U/L Today Total Protein, (6.5-8.0) 6.9 g/dL Today Albumin, (3.5-5.0) 4.4 g/dL Today [facility] Medical History Venous reflux YULY (obstructive sleep apnea) Skin tags, multiple acquired PAC (premature atrial contraction) Toe pain, right Hypothyroidism Hyperglycemia Hyperlipemia Palpitations HTN (hypertension) Esophageal hernia Anxiety Surgical History H/O colonoscopy History of hysteroscopy Family History (Reviewed 02/13/25 @ 07:31 by Ray Tolentino [facility]) Father Hyperlipidemia Stroke Mother HTN (hypertension) Hyperlipidemia Stroke Brother Melanoma Daughter No problems noted. Daughter No problems noted. Social History (Reviewed 02/13/25 @ 07:31 by Ray Tolentino [facility]) Housing: House Alcohol intake: never Patient Tobacco Use Status: Never used Tobacco e-Cigarette/Vaping Use: Never Used Second Hand Smoke Exposure: No service: No Current occupational status: other Cognitive needs: No Hearing needs: No Vision needs: No Female Reproductive History Menstrual Age of Menarche: 12 Assessment & Plan Assessment & Plan (1) Diabetes: Code(s): E11.9 - Type 2 diabetes mellitus without complications Category: Medical Plan: Wt: 67 Kg ( 05/18 ), 06/18 Est kcal needs as per MSJ: 1400 (40% carb, 30% protein/fat) Est fluid needs as per 25-30 ml/d: 2000 Est prot per day as per 1 g/kg bw: 70 Recommend fiber intake : 8-10 g per day and gradually increase to 25-28 g per day for women and 35-38 g for men or as tolerated Recommend sodium intake per day : less than 2300 mg Educated patient on: ( R = reviewed V = verbalizes understanding N/R = needs review N/A = not applicable Food sources of carbohydrate, adequate serving sizes and its role in various health conditions: R V N/R Differences between complex carbohydrates a simple carbohydrates, role of fiber in diet: R Lean protein sources of foods: R hydration :R Differences between types of fats and role in diet (mono on saturated fat fatty acids, saturated fatty acids, trans fats): R V N/R Food sources of sodium in salt and healthy modifications for heart health in kidney health: R V R/V Vitamins and minerals: R V N/R Healthy plate method concept: R V N/R Physical activity: Benefits a precaution: R Hypoglycemia protocol (rule of 15): R V N/R Dietary prevention of Hyperglycemia: R Patient Instructions: engage in physical activity 30 minutes daily unless otherwise specified by your doctor keep food record/phone violeta ok , goal less than 1500 monet per day choosing lean protein foods and high fiber foods Coding Level of Care Code Nutr Indiv Subseq ([id number]) Diagnoses Diabetes E11.9 Time Spent (min) 30
[2025-06-04 14:22] VITALS: BMI 27.8
--- OUTSIDE RECORDS SUMMARY | 2025-06-04 14:26 | XMS_ITS | Encounter Summary ---
Author Organization [employer] Address [address] [facility] 7[address] [place] [address] Care Team Providers Care Atomizer Assembler Name Role Phone Unavailable Primary Care Provider Unavailabl e Encounter Details Date Type Department Care Team (Latest Contact Info) Description 09/11/2019 Abstract [facility] CONVERSIONS Dental, Provider, DDS Social History Tobacco [...]
--- OUTSIDE RECORDS SUMMARY | 2025-06-04 14:26 | XMS_ITS | Clinical Summary ---
Author Organization [facility] Address [address] [place] [id number] Phone Care Team Providers Care Dumpster Driver Name Role Phone Juvenal Segura MD Primary Care Provider [phone]- [phone] Social History Tobacco Use Types Packs/Day Years [...] topic Medical Devices Not on file Insurance [employer] PARTIAL [employer] NET PARTIAL HEALTH SAFETY NET PARTIAL HEALTH SAFETY NET PARTIAL HEALTH SAFETY NET PARTIAL HEALTH SAFETY NET PARTIAL HEALTH SAFETY NET PARTIAL HEALTH SAFETY NET PARTIAL HEALTH SAFETY NET PARTIAL Care Teams Dumpster Driver Relationship Specialty Start Date End Date Juvenal Segura MD [email or web address] PCP - General Internal Medicine 09/28/19 Additional Source Comments The information contained in this document represents components of the legal health record. It is not the complete legal health record.[facility]
== END 2025-06-04 14:52 | disposition home or self-care (01) ==
LOC: HO.ENCR 13:59
PROVIDERS: PCP Nurse Practitioner Family; Visit Provider Dietitian, Registered
DX: E11.9 Type 2 diabetes mellitus without complications (principal)

== ENCOUNTER → 2025-06-04 13:58 | Outpatient (BNVA) | payer OTHER, SELFPAY | PROVIDERS: PCP Nurse Practitioner Family; Visit Provider Dietitian, Registered | DX: E11.9 Type 2 diabetes mellitus without complications (principal) | CPT/HCPCS: 97803 ==

== ENCOUNTER 2025-06-05 06:59 | Outpatient (AMB) | payer OTHER, SELFPAY ==
--- OUTSIDE RECORDS SUMMARY | 2025-06-05 07:02 | XMS_ITS | Encounter Summary ---
Author Organization [employer] Address [address] [facility] [address] [place] [address] Care Team Providers Care Patient Attendant Name Role Phone Unavailable Primary Care Provider Unavailabl e Encounter Details Date Type Department Care Team (Latest Contact Info) Description 09/11/2019 Abstract [facility] CONVERSIONS Dental, Provider, DDS Social History Tobacco [...]
--- OUTSIDE RECORDS SUMMARY | 2025-06-05 07:02 | XMS_ITS | Clinical Summary ---
Author Organization [facility] Address [address] [place] [address] Phone Care Team Providers Care Field Artillery Operations Specialist Name Role Phone Juvenal Segura MD Primary Care Provider [phone]- [phone] Social History Tobacco Use Types Packs/Day Years [...] topic Medical Devices Not on file Insurance [employer] PARTIAL [email or web address] NET PARTIAL HEALTH SAFETY NET PARTIAL HEALTH SAFETY NET PARTIAL HEALTH SAFETY NET PARTIAL HEALTH SAFETY NET PARTIAL HEALTH SAFETY NET PARTIAL HEALTH SAFETY NET PARTIAL HEALTH SAFETY NET PARTIAL Care Teams Field Artillery Operations Specialist Relationship Specialty Start Date End Date Juvenal Segura MD [email or web address] PCP - General Internal Medicine 09/28/19 Additional Source Comments The information contained in this document represents components of the legal health record. It is not the complete legal health record.[facility]
--- NOTE | 2025-06-05 07:15 | MHC.PC.OV ---
Intake Visit Reasons: Lab results follow up 4 months Allergies hydrochlorothiazide Allergy (Unknown, Verified 06/05/25 07:21) unknown lisinopril Allergy (Unknown, Verified 06/05/25 07:21) unknown procaine (From NOVOCAIN) Allergy (Unknown, Verified 06/05/25 07:21) UNKNOWN atorvastatin Adverse Reaction (Unknown, Verified 06/05/25 07:21) myalgias hydromorphone (Dilaudid) Adverse Reaction (Unknown, Verified 06/05/25 07:21) lightheaded, dizziness seasonal Allergy (Unknown, Uncoded 06/05/25 07:21) unknown Medication List - Last Reconciled 06/05/25 by SERENITY Godinez- atorvastatin 40 mg PO DAILY blood sugar diagnostic (FreeStyle Lite Strips) tid testing blood-glucose meter (FreeStyle Lite Meter kit) tid testing diltiazem HCl CD 120 mg PO DAILY esomeprazole magnesium 40 mg PO DAILY lancets (FreeStyle Lancets) tid testing lorazepam 1 mg PO before flying PRN; 3 days losartan 50 mg PO DAILY 90 days sertraline 75 mg (1.5 x 50 mg) PO DAILY 90 days spironolactone 25 mg PO DAILY Tobacco use date assessed: 01/17/25 Dental Screening Dental Screen Date: 01/17/25 HPI Lab results follow up 4 months HPI Details History of Present Illness The patient is a 60-year-old female presenting with a follow-up visit to review laboratory results and manage her diabetes. She has a history of diabetes mellitus, currently managed with dietary modifications, although she has Jardiance 10 mg at home which she has not yet started. Her A1c was not drawn with the recent labs, and it is planned to be obtained today. The patient also has subclinical hypothyroidism, with thyroid function tests showing levels just above 5. She prefers not to start medication at this time and denies symptoms such as excessive fatigue, constipation, hair loss, or weight gain. She reports ongoing left knee pain, which is very uncomfortable and associated with swelling and severe pain during extension and flexion, especially at night. There is no history of popping or clicking, and an x-ray is planned to further evaluate the possibility of arthritis. Preventative care measures discussed include the importance of yearly eye exams and a microalbumin test, which is due next month but will be obtained now. Review of Systems - Endocrine: Denies excessive fatigue, constipation, hair loss, weight gain. - Musculoskeletal: Reports severe left knee pain with swelling, especially at night. Denies popping or clicking. -denies any sob, cp, polyuria, polydipsia, neuropathy Plan The patient will have her A1c level checked today to better assess her diabetes management, as it was not included in the recent labs. She is currently managing her diabetes with diet and has Jardiance 10 mg at home, which will be considered for future use based on A1c results (has not started med yet) For her subclinical hypothyroidism, the patient has opted to monitor her thyroid levels without starting medication, given the absence of significant symptoms. Regarding her left knee pain, an x-ray will be performed today to investigate the potential for arthritis, given the severe pain and swelling reported. Preventative care includes reinforcing the importance of yearly eye exams and obtaining a microalbumin test, which is due next month but will be conducted now. Discussion Notes I discussed with the patient the importance of monitoring her diabetes through regular A1c checks and the potential use of Jardiance if needed. We also talked about her subclinical hypothyroidism and her preference to avoid medication at this time, given her lack of symptoms. For her knee pain, I explained the need for an x-ray to assess for arthritis and the importance of addressing any findings promptly. I emphasized the necessity of yearly eye exams and obtaining a microalbumin test to monitor her kidney function. Patient Instructions - Get your A1c test done today. - Consider starting Jardiance if your A1c levels are high. - Monitor your thyroid levels and report any new symptoms. - Get an x-ray of your knee today to check for arthritis. - Schedule and attend yearly eye exams. - Complete the microalbumin test today. [facility] Medical History Venous reflux YULY (obstructive sleep apnea) Skin tags, multiple acquired PAC (premature atrial contraction) Toe pain, right Hypothyroidism Hyperglycemia Hyperlipemia Palpitations HTN (hypertension) Esophageal hernia Anxiety Surgical History H/O colonoscopy History of hysteroscopy Family History Father Hyperlipidemia Stroke Mother HTN (hypertension) Hyperlipidemia Stroke Brother Melanoma Daughter No problems noted. Daughter No problems noted. Social History Housing: House Alcohol intake: never Patient Tobacco Use Status: Never used Tobacco e-Cigarette/Vaping Use: Never Used Second Hand Smoke Exposure: No service: No Current occupational status: other Cognitive needs: No Hearing needs: No Vision needs: No Female Reproductive History Menstrual Age of Menarche: 12 Questionnaire Thrive Questionnaire Date Thrive assessed: 01/11/25 I am a: Patient What is your living situation today?: I have a steady place to live Within the past 12 months, did the food you bought not last and you didn't have the money to get more?: Never true Within the past 12 months, did you worry whether your food would run out before you got money to buy more?: Sometimes True Do you have trouble paying for medicines?: Yes Do you have trouble getting transportation to medical appointments?: No Do you have trouble paying your heating and electricity bill?: Yes Do you have trouble taking care of your child, family member or friend?: No Do you have trouble with day-to-day activities such as bathing, preparing meals, shopping, managing finances, etc.?: No Are you currently unemployed and looking for a job?: Yes Are you interested in more education?: Yes Currently or been in a relationship where the following occur: No concerns reported THRIVE Score: 2 DEJA-7 AMB Questionnaire DEJA-7 Date DEJA - 7 assessed: 01/17/25 Source: Developed by Drs. Kali Meneses, Melisa Cha, Yaron Chao and colleagues, with an educational joshua from [employer]. Physical exam (Primary Care) Tobacco/Smoking Status: Tobacco use Status Tobacco use date assessed 01/17/25 02/13/25 07:34 Patient Tobacco Use Status Never used Tobacco 02/13/25 07:34 e-Cigarette/Vaping Use Never Used 02/13/25 07:34 Thrive Assessment: Date of Thrive Assessment Date Thrive assessed 01/11/25 04/09/25 08:52 Currently or been in a relationship where the following occur: No concerns reported Telehealth Telehealth Telehealth Platform: [facility] Location of provider rendering services: practice address Location of patient: address on file Patient Identification confirmed using: Name, : Yes Telehealth method: video Patient verbally consented to treatment: Yes Patient verbally consented to billing insurance company: Yes Patient informed of any privacy concerns related to visit: Yes Minutes spent on Phone/Video with Pt.: 15 Coding Level of Care Code Tele Est Pt Level 3 (09653) Diagnoses Hyperlipemia E78.5 Diabetes E11.9 Vitamin D deficiency E55.9 Elevated TSH R79.89 Assessment & Plan Assessment & Plan (1) Hyperlipemia: Code(s): E78.5 - Hyperlipidemia, unspecified Category: Medical (2) Diabetes: Code(s): E11.9 - Type 2 diabetes mellitus without complications Category: Medical (3) Vitamin D deficiency: Code(s): E55.9 - Vitamin D deficiency, unspecified Category: Medical Plan: . (4) Elevated TSH: Code(s): R79.89 - Other specified abnormal findings of blood chemistry Category: Medical Plan . Orders: Orders Hemoglobin A1c Today E11.9 - Type 2 diabetes mellitus without complications XR knee LT 2V Today M25.562 - Pain in left knee Lipid Panel Today E78.5 - Hyperlipidemia, unspecified Microalbumin, Random (w Creat) Today E11.9 - Type 2 diabetes mellitus without complications, E55.9 - Vitamin D deficiency, unspecified, R79.89 - Other specified abnormal findings of blood chemistry Vitamin D 25-OH Total Today E55.9 - Vitamin D deficiency, unspecified
== END 2025-06-05 07:52 | disposition home or self-care (01) ==
LOC: HO.HMCC 07:00
PROVIDERS: PCP Nurse Practitioner Family; Visit Provider Nurse Practitioner Family
DX: E78.5 Hyperlipidemia, unspecified (principal); E11.9 Type 2 diabetes mellitus without complications; E55.9 Vitamin D deficiency, unspecified; R79.89 Other specified abnormal findings of blood chemistry

== ENCOUNTER 2025-06-05 06:59 | Outpatient (REF) | payer OTHER, SELFPAY ==
--- NOTE | ~2025-06-05 | XR_ITS ---
EXAMINATION: XR KNEE 1-2 VIEWS LEFT HISTORY: M25.562 - Pain in left knee COMPARISON: Comparison is made with the prior examination dated 04/25/2018. FINDINGS: AP and lateral views of the left knee are submitted. Osseous mineralization is normal. There is no fracture or dislocation. There is mild to moderate degenerative change of the medial compartment with osteophyte formation. The soft tissues are unremarkable. There is no joint effusion. XR/XR knee LT 2V IMPRESSION: Mild to moderate degenerative change of the medial compartment. Electronically signed by: Kali Gonzales MD 06/05/2025 08:57 AM EDT
[2025-06-05 10:44] LABS: Hemoglobin A1C 186.8827 umol/L; Total Hemoglobin (HGBA1C) 3332.3045 umol/L
[2025-06-05 11:40] LABS: Alanine Aminotransferase 28 U/L (0-31); Albumin Level 4.4 g/dL (3.5-5.0); Alkaline Phosphatase 99 U/L (39-117); Anion Gap 11 (12-20); Aspartate Amino Transferase 30 U/L (5-31); Blood Urea Nitrogen 19 mg/dL (9-16); Calcium 8.9 mg/dL (8.4-10.2); Carbon Dioxide 26 mmol/L (22-29); Chloride 105 mmol/L (96-108); Cholesterol 157 mg/dL (<200); Estimated Glomerular Filt Rate > 60; HDL Cholesterol 42 mg/dL (>40); Potassium 4.1 mmol/L (3.3-5.1); Sodium 138 mmol/L (135-145); Total Protein 6.9 g/dL (6.5-8.0); Triglycerides 166 mg/dL (<150)
[2025-06-05 14:10] LABS: Microalbum/Creatinine Ratio Ur 13.2 ug/mg cr (<30)
== END 2025-06-05 07:00 | disposition home or self-care (01) ==
LOC: HO.HMGCX 06:59
PROVIDERS: PCP Nurse Practitioner Family; Visit Provider Nurse Practitioner Family
DX: M25.562 Pain in left knee (principal); E78.5 Hyperlipidemia, unspecified; E11.9 Type 2 diabetes mellitus without complications; E55.9 Vitamin D deficiency, unspecified; R94.6 Abnormal results of thyroid function studies
CPT/HCPCS: 36415; 73560; 80053; 80061; 82043; 82306; 82570; 83036; 84443

== ENCOUNTER → 2025-06-05 08:47 | Outpatient (BNV) | payer OTHER, SELFPAY | PROVIDERS: PCP Nurse Practitioner Family; Visit Provider Radiology Diagnostic Radiology | DX: M17.12 Unilateral primary osteoarthritis, left knee (principal) | CPT/HCPCS: 73560 ==

== ENCOUNTER 2025-08-15 07:58 | Outpatient (AMB) | payer OTHER, SELFPAY ==
[2025-08-15 08:03] VITALS: BP 114/64; PULSE 67; RESP 16; O2SAT 98; BMI 27.6
--- NOTE | 2025-08-15 08:03 | A.OFFPC_ITS ---
Vital Signs 08/15/25 08:03 Height 5 ft 1 in Weight 146 lb BMI 27.6 BP 114/64 Respiration 16 Pulse 67 Pulse Source Pulse Oximeter Pulse Oximetry (%) 98 Oxygen Delivery Method Room Air Intake Visit Reasons: PE System Specialist Required: No Accompanied by: Self / Same As Patient Allergies hydrochlorothiazide Allergy (Unknown, Verified 08/15/25 08:12) unknown lisinopril Allergy (Unknown, Verified 08/15/25 08:12) unknown procaine (From NOVOCAIN) Allergy (Unknown, Verified 08/15/25 08:12) UNKNOWN atorvastatin Adverse Reaction (Unknown, Verified 08/15/25 08:12) myalgias hydromorphone (Dilaudid) Adverse Reaction (Unknown, Verified 08/15/25 08:12) lightheaded, dizziness seasonal Allergy (Unknown, Uncoded 08/15/25 08:12) unknown Medication List - Last Reconciled 08/15/25 by JANELL GodinezP- atorvastatin 40 mg PO DAILY blood sugar diagnostic (FreeStyle Lite Strips) tid testing blood-glucose meter (FreeStyle Lite Meter kit) tid testing diltiazem HCl CD 120 mg PO DAILY empagliflozin (Jardiance) 10 mg PO DAILY esomeprazole magnesium 40 mg PO DAILY lancets (FreeStyle Lancets) tid testing lorazepam 1 mg PO before flying PRN; 3 days losartan 50 mg PO DAILY 90 days magnesium oxide 400 mg PO DAILY 90 days sertraline 75 mg (1.5 x 50 mg) PO DAILY 90 days spironolactone 25 mg PO DAILY Tobacco use date assessed: 08/15/25 Dental Screening Dental Screen Date: 08/15/25 Did you have a dental visit in the last 12 months?: Yes Did you have a dental problem in the last 6 months where you did not have access to dental care?: No Was dental information given to patient?: Patient has dentist HPI PE HPI Details History of Present Illness The patient is a 60-year-old female presenting with a physical examination and management of diabetes mellitus. She has a history of diabetes mellitus and denies any neuropathy, polyuria, or polydipsia. Her last hemoglobin A1c was 7.3%, and she recently started on Jardiance 10 mg. She regularly attends eye exams, and her mammogram and Cologuard screenings are up-to-date. The patient reports recent treatment for two cyst infections, for which she visited urgent care twice. Both cysts were lanced, and she is currently on antibiotics, with improvement noted. Health Maintenance - Regular eye exams - Mammogram up-to-date - Cologuard up-to-date - Scheduled thyroid ultrasound in four [facility] Social History Review of Systems - Endocrine: Denies polyuria, polydipsia - Neurological: Denies neuropathy - Gastrointestinal: Denies abdominal elvira n, blood in stool, constipation, diarrhea - Psychiatric: Denies suicidal ideation - General: Denies fevers, chills Physical Exam General: Cooperative, healthy appearing, comfortable, no acute distress and well developed Orientation: Patient oriented x3 Limitations: No limitations Head: Normal to inspection Ears: Hearing grossly normal bilaterally Nose: Normal external nose present Face and sinus: Normal facial exam Eyes: Appearance normal, both eyes and all related structures Neck: Normal visual inspection and Yes full ROM Respiratory: Normal respiratory effort and able to speak in complete sentences. Clear to auscultation bilaterally Cardiovascular: Regular rate and rhythm. Normal S1 and S2 GI: Normal to inspection. Soft to palpation and nontender Neuro: Patient oriented x3 Extremities: Normal to inspection, positive sensation use of monofilament to feet, feet were intact Results Plan 1. Diabetes Mellitus The patient is managing her diabetes mellitus with Jardiance 10 mg, and her last A1c was 7.3%. Regular monitoring of A1c is planned, with the next check due in the coming months. 2. Cyst Infections The patient was treated for two cyst infections with antibiotics after lancing, and improvement is noted. Discussion Notes Patient Instructions [facility] Medical History Arthritis of knee, right Arthritis of knee, left Trochanteric bursitis, left hip Venous reflux YULY (obstructive sleep apnea) Skin tags, multiple acquired PAC (premature atrial contraction) Toe pain, right Hypothyroidism Hyperglycemia Hyperlipemia Palpitations HTN (hypertension) Esophageal hernia Anxiety Surgical History H/O colonoscopy History of hysteroscopy Family History Father Hyperlipidemia Stroke Mother HTN (hypertension) Hyperlipidemia Stroke Brother Melanoma Daughter No problems noted. Daughter No problems noted. Social History Housing: House Alcohol intake: never Patient Tobacco Use Status: Never used Tobacco e-Cigarette/Vaping Use: Never Used Second Hand Smoke Exposure: No service: No Current occupational status: other Cognitive needs: No Hearing needs: No Vision needs: No Female Reproductive History Menstrual Age of Menarche: 12 Questionnaire Thrive Questionnaire Date Thrive assessed: 01/11/25 I am a: Patient What is your living situation today?: I have a steady place to live Within the past 12 months, did the food you bought not last and you didn't have the money to get more?: Never true Within the past 12 months, did you worry whether your food would run out before you got money to buy more?: Sometimes True Do you have trouble paying for medicines?: Yes Do you have trouble getting transportation to medical appointments?: No Do you have trouble paying your heating and electricity bill?: Yes Do you have trouble taking care of your child, family member or friend?: No Do you have trouble with day-to-day activities such as bathing, preparing meals, shopping, managing finances, etc.?: No Are you currently unemployed and looking for a job?: Yes Are you interested in more education?: Yes Currently or been in a relationship where the following occur: No concerns reported THRIVE Score: 2 DEJA-7 AMB Questionnaire DEJA-7 Date DEJA - 7 assessed: 01/17/25 Source: Developed by Drs. Kali Meneses, Melisa Cha, Yaron Chao and colleagues, with an educational joshua from [employer] Physical exam (Primary Care) Vital Signs: Last Vital Signs Pulse 67 08/15/25 08:03 Resp 16 08/15/25 08:03 BP 114/64 08/15/25 08:03 Pulse Ox 98 08/15/25 08:03 Oxygen Delivery Method Room Air 08/15/25 08:03 BMI result Body Mass Index 27.6 Tobacco/Smoking Status: Tobacco use Status Tobacco use date assessed 08/15/25 08/15/25 08:09 Patient Tobacco Use Status Never used Tobacco 08/15/25 08:09 e-Cigarette/Vaping Use Never Used 08/15/25 08:09 Thrive Assessment: Date of Thrive Assessment Date Thrive assessed 01/11/25 08/15/25 08:09 Currently or been in a relationship where the following occur: No concerns reported Coding Level of Care Code Est Pt Level 3 (31136) Est Pt Prev Care 40-64y(57522) Diagnoses Enlarged thyroid E04.9 Diabetes E11.9 Encounter for routine adult physical exam with abnormal findings Z00. Assessment & Plan Assessment & Plan (1) Enlarged thyroid: Code(s): E04.9 - Nontoxic goiter, unspecified Category: Medical (2) Diabetes: Code(s): E11.9 - Type 2 diabetes mellitus without complications Category: Medical (3) Encounter for routine adult physical exam with abnormal findings: Code(s): Z00. - Encounter for general adult medical examination with abnormal findings Category: Medical Plan . Orders: Orders Complete Blood Count Auto Diff Today E11.9 - Type 2 diabetes mellitus without complications, E55.9 - Vitamin D deficiency, unspecified, Z00.01 - Encounter for general adult medical examination with abnormal findings UA CC w/rflx Micro + Cult Today E11.9 - Type 2 diabetes mellitus without complications, E55.9 - Vitamin D deficiency, unspecified, Z00.01 - Encounter for general adult medical examination with abnormal findings Vitamin D 25-OH Total Today E55.9 - Vitamin D deficiency, unspecified Hemoglobin A1c Today E11.9 - Type 2 diabetes mellitus without complications Comprehensive Mcbee. Panel Fast Today E11.9 - Type 2 diabetes mellitus without complications, E55.9 - Vitamin D deficiency, unspecified, Z00.01 - Encounter for general adult medical examination with abnormal findings TSH reflex Free T4 Today E11.9 - Type 2 diabetes mellitus without complications, E55.9 - Vitamin D deficiency, unspecified, Z00.01 - Encounter for general adult medical examination with abnormal findings Lipid Panel Today E11.9 - Type 2 diabetes mellitus without complications, E55.9 - Vitamin D deficiency, unspecified, Z00.01 - Encounter for general adult medi monet examination with abnormal findings US thyroid 4 Months E04.9 - Nontoxic goiter, unspecified
--- OUTSIDE RECORDS SUMMARY | 2025-08-15 08:03 | XMS_ITS | Clinical Summary ---
Author Organization [employer] Address [address] [place] [address] [address] [place] [address] Care Team Providers Care Street And Building Decorator Name Role Phone Unavailable Primary Care Provider [...] 1965 FIT 1965 FOBT 1965 Sigmoidoscopy 1965 Disability Screening 1965 Alcohol/Substance Use Screening 1977 Tobacco Screening 1977 DTaP/Tdap/Td Vaccines (1 - Tdap) 01/23/1984 Pap Smear 1986 Cervical Cancer Screening 1995 HPV/Cotest 1995 Mammogram 2005 Pneumococcal Vaccine: 50+ Ye ars (1 of 1 - PCV) 2015 Zoster Vaccines (1 of 2) 2015 COVID-19 Vaccine ( - 2023-2 5 season) 2025 Influenza Vaccine (#1) 2025 RSV Patients and Pa tients Aged 60 [...] patient's age to complete this topic Meningococcal B Vaccine Aged Out No l onger eligible based on patient's age to complete [...]
--- OUTSIDE RECORDS SUMMARY | 2025-08-15 08:03 | XMS_ITS | Encounter Summary ---
Author Organization [employer] Address [address] [place] [address] Care Team Providers Care Steam And Gas Turbine Assembler Name Role Phone Unavailable Primary Care Provider Unavailabl e Encounter Details Date Type Department Care Team (Latest Contact Info) Description 09/11/2019 Abstract [facility] CONVERSIONS Dental, Provider, DDS Social History [...]
--- OUTSIDE RECORDS SUMMARY | 2025-08-15 08:03 | XMS_ITS | Clinical Summary ---
Author Organization [facility] Address [address] [place] [id number] Phone Care Team Providers Care Hand Counter Name Role Phone Juvenal Segura MD Primary Care Provider [phone]- [phone] Social History Tobacco Use Types Packs/Day Years [...] 2015 ZOSTER VACCINES (1 of 2) 2015 INFLUENZA VACCINE (#1) 2025 COVID-19 VACCINE (2 - 2024-2 6 season) 2025 01/21/2021 Adult Td,Tdap Booster 09/07/2026 09/07/2016 RSV [...] topic Medical Devices Not on file Insurance [employer] PARTIAL [employer] PART[employer] HEALTH SAFETY NET PARTIAL SAFETY NET PARTIAL HEALTH SAFETY NET PARTIAL HEALTH SAFETY NET PARTIAL HEALTH SAFETY NET PARTIAL HEALTH SAF[employer]Y NET PART[employer] HEALTH SAF[employer]Y NET PARTIAL Care Teams Hand Counter Relationship Specialty Start Date End Date Juvenal Segura MD [email or web address] PCP - General Internal Medicine 09/28/19 Additional Source Comments The information contained in this document represents components of the legal health record. It is not the complete legal health record.[facility]
--- OUTSIDE RECORDS SUMMARY | 2025-08-15 08:03 | XMS_ITS | Encounter Summary ---
Author Organization [facility] Address [address] [place] [phone] Phone Care Team Providers Care Manager Battery Name Role Phone Juvenal Segura MD Primary Care Provider [phone]- [phone] Encounter Details Date Type Department Care Team (Late st Contact Info) Description 11/08/2019 Transcribe Orders [facility] [address] [place] [id number] [email or web address] Social History Tobacco Use Types Packs/Day Years Used Date Smoking Tobacco: Never Assessed Comments Unknown Sex and Gender Information Value Date Recorded Sex Assigned at Female 09/28/2019 10:32 AM EST Legal Sex Female 10:19 AM EST Gender Identity Female 09/28/2019 10:32 AM EST Sexual Orientation Straight 09/28/2019 10 :32 AM EST documented as of this encounter Plan of Treatment Not on file documented as of this encounter Results * US Chest Outside (No Interpretation) (08/31/2019 12:00 AM EST) Narrative [facility] - 11/08/2019 8:10 AM EST This study is for PACS storage only and not for interpretation. us Mathew Urrutia MD IMG OUTSIDE IMAGING W/OUT INTERPRETATION Final Result [facility] documented in this encounter Visit Diagnoses Not on filedocumented in this encounter Care Teams Manager Battery Relationship Specialty Start Date End Date Juvenal Segura MD [phone] (work) [email or web address] PCP - General Internal Medicine 09/28/19 documented as of this encounter Additional Source Comments The information contained in this document represents components of the legal health record. It is not the complete legal health record.[facility]
== END 2025-08-15 08:27 | disposition home or self-care (01) ==
LOC: HO.HMCC 07:58
PROVIDERS: PCP Nurse Practitioner Family; Visit Provider Nurse Practitioner Family
DX: Z00.00 Encounter for general adult medical examination without abnormal findings (principal); E04.9 Nontoxic goiter, unspecified; E11.9 Type 2 diabetes mellitus without complications

== ENCOUNTER → 2025-08-15 07:58 | Outpatient (BNVA) | payer OTHER, SELFPAY | PROVIDERS: PCP Nurse Practitioner Family; Visit Provider Nurse Practitioner Family | DX: Z00.01 Encounter for general adult medical examination with abnormal findings (principal); E55.9 Vitamin D deficiency, unspecified; E04.9 Nontoxic goiter, unspecified; E11.9 Type 2 diabetes mellitus without complications | CPT/HCPCS: 99396 ==